=== PATIENT | female | born 1935 | race Hispanic/Latino ===

== ENCOUNTER 2017-12-31 14:44 | Emergency (ER) | payer MEDICARE ==
[~2017-12-31] VITALS: Ht 147.3 cm; Wt 71.7 kg
[~2017-12-31 14:44] MED LIST: AMLODIPINE BESYL5 MG PO; ASA81 MG PO; ASPIRIN325 MG PO; ATORVASTATIN CA20 MG PO; CALCIUM PO; CALCIUM600 MG PO; CARVEDILOL12.5 MG PO; CIPROFLOXACIN500 M1 PO; COLACE100 MG PO; FUROSEMIDE40 MG PO; LANTUS 3ML100 UNITS/ SC; LANTUS100 UNIT/1 SQ; METFORMIN HCL1000 MG PO; NIFEDIPINE10 MG PO; SPIRONOLACTONE25 MG PO; TRAMADOL-ACETAMI1 EA PO; TYLENOL WITH C1 EACH PO; VITAMIN D1000 UNI1 PO; Z.0.AMLODIPINE BESYL PO; Z.0.CARVEDILOL25 MG PO; Z.0.CLONIDINE HCL0.1; Z.0.FUROSEMIDE40 MG; Z.0.LISINOPRIL30 MG PO; Z.0.SPIRONOLACTONE25 PO; Z.1.METFORMIN HCL100 PO; ZESTRIL20 MG PO
[2017-12-31 16:27] LABS: BASOPHILS # (AUTO) 0.1 (0.0-0.1); BASOPHILS % 0.8 % (0.0-1.0); EOSINOPHILS # (AUTO) 0.3 (0.0-0.4); EOSINOPHILS % 5.5 % (0.0-6.0); HEMATOCRIT 35.9 % (34.2-44.1); LYMPHOCYTES # (AUTO) 1.2 (1.0-3.2); LYMPHOCYTES % 20.5 % (18.0-39.1); MEAN CORPUSCULAR HEMOGLOBIN 27.9 pg (28-32); MEAN CORPUSCULAR HGB CONC 33.4 g/dL (31-35); MEAN CORPUSCULAR VOLUME 83.5 fL (81-99); MONOCYTES # (AUTO) 0.4 (0.2-0.8); MONOCYTES % 6.9 % (4.4-11.3); NEUTROPHILS # (AUTO) 3.9 (2.1-6.9); NEUTROPHILS % 66.1 % (38.7-80.0); PLATELET COUNT 247 x10e3/uL (140-360); RED CELL DISTRIBUTION WIDTH 12.8 % (11.7-14.4)
[2017-12-31 16:31] LABS: CLARITY,URINE SL CLOUDY (CLEAR); COLOR,URINE YELLOW (YELLOW); LEUKOCYTE ESTERASE ,URINE NEGATIVE (NEGATIVE); NITRITE,URINE NEGATIVE (NEGATIVE)
[2017-12-31 16:32] LABS: BILIRUBIN,URINE NEGATIVE (NEGATIVE); KETONES,URINE NEGATIVE (NEGATIVE); PROTEIN,URINE DIPSTICK 2+ (NEGATIVE); URINE UROBILINOGEN 0.2 mg/dL (0.2 - 1)
[2017-12-31 16:47] LABS: BACTERIA,URINE FEW /HPF; EPITHELIAL CELLS,URINE FEW /LPF; RBC,URINE 0-5 /HPF (0-5); WBC,URINE (MAN) 0-5 /HPF (0-5)
[2017-12-31 16:48] LABS: YEAST,URINE FEW
[2017-12-31] MEDS ORDERED: SODIUM CHLORIDE 0.9% 1000ML 1,000 ML IV ONE (17:00)
[2017-12-31 17:33] LABS: ALBUMIN 4.1 g/dL (3.5-5.0); ALBUMIN/GLOBULIN RATIO 1.1 (0.8-2.0); ANION GAP 15.6 mmol/L (8-16); CALCIUM 9.7 mg/dL (8.4-10.2); CREATININE, SERUM 2.11 mg/dL (0.57-1.11); POTASSIUM 4.6 mmol/L (3.5-5.1)
[2017-12-31] MEDS ORDERED: INSULIN REGULAR, HUMAN 100 UNIT/1 ML 3ML VIAL IV ONE (17:45)
[2017-12-31 20:24] VITALS: BP 172/87
[2017-12-31] MEDS ORDERED: INSULIN LISPRO 100 UNIT/1 ML 3ML VIAL SQ ONE (21:00)
== END 2017-12-31 20:50 | disposition home or self-care (01) ==
LOC: ER 14:44
DX: E11.65 Type 2 diabetes mellitus with hyperglycemia (principal); I25.10 Atherosclerotic heart disease of native coronary artery without angina pectoris; E78.5 Hyperlipidemia, unspecified; N28.9 Disorder of kidney and ureter, unspecified
CPT/HCPCS: 36415; 80053; 81001; 82948; 85025; 87086; 99283; J7030

== ENCOUNTER 2019-06-16 16:07 | Inpatient (IN) | payer MEDICARE ==
[~2019-06-16] VITALS: Ht 147.3 cm; Wt 78.7 kg
--- OUTSIDE RECORDS SUMMARY | 2019-06-16 16:13 | XMS REPORT ---
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 Allergies, Adverse Reactions, Alerts Allergy Name Allergy Type Status Severity Reaction(s) Onset Date Inactive Date Treating Clinician Comments No Known Allergies DA Active U 2016-04-01 00:00:00 Medications This patient has no known medications. Results Test Description Test Time Test Comments Text Results Atomic Results Result Comments BASIC METABOLIC PANEL 2019-06-14 07:17:00 SODIUM (test code=NA) 129 mEq/L 134-147 POTASSIUM (test code=K) 4.7 mEq/L 3.4-5.0 CHLORIDE (test code=CL) 90 mEq/L 100-108 CARBON DIOXIDE (test code=CO2) 31 mEq/L 21-33 ANION GAP (test code=GAP) 13 0-20 GLUCOSE (test code=GLU) 136 mg/dL 70-110 BLOOD UREA NITROGEN (test code=BUN) 60 mg/dL 7-18 GLOMERULAR FILTRATION RATE (test code=GFR) 10.7 70-80 Units of measure=ml/min/1.73 m2 CREATININE (test code=CREAT) 4.0 mg/dL 0.6-1.3 CALCIUM (test code=CA) 8.3 mg/dL 8.0-10.5 [id number] 07:17:00* Test Item Value Reference Range Comments PHOSPHOROUS (test code=PHOS) 3.7 MG/DL 2.5-4.9 [id number] 07:17:00* Test Item Value Reference Range Comments MAGNESIUM (test code=MAG) 2.10 mg/dL 1.8-2.4 CBC W/AUTO [id number] 07:06:00* Test Item Value Reference Range Comments WHITE BLOOD CELL (test code=WBC) 4.82 x10 3/uL 4.5-11.0 RED BLOOD CELL (test code=RBC) 2.56 x10 6/uL 3.54-5.02 HEMOGLOBIN (test code=HGB) 7.1 g/dL 11.0-15.0 HEMATOCRIT (test code=HCT) 22.5 % 33.0-45.0 MEAN CELL VOLUME (test code=MCV) 87.9 fL 81.0-99.0 MEAN CELL HGB (test code=MCH) 27.7 pg 27.0-33.0 MEAN CELL HGB CONCETRATION (test code=MCHC) 31.6 g/dL 33.0-37.0 RED CELL DISTRIBUTION WIDTH CV (test code=RDW) 13.0 % 11.5-14.5 RED CELL DISTRIBUTION WIDTH SD (test code=RDW-SD) 41.9 fL 37.0-54.0 PLATELET COUNT (test code=PLT) 252 x10 3/uL 150-400 MEAN PLATELET VOLUME (test code=MPV) 9.9 fL 7.0-9.0 NEUTROPHIL % (test code=NT%) 54.0 % 56.0-77.0 IMMATURE GRANULOCYTE % (test code=IG%) 0.2 % 0.0-2.0 LYMPHOCYTE % (test code=LY%) 19.3 % 14.0-32.0 MONOCYTE % (test code=MO%) 13.9 % 4.8-9.0 EOSINOPHIL % (test code=EO%) 11.6 % 0.3-3.7 BASOPHIL % (test code=BA%) 1.0 % 0.0-2.0 NUCLEATED RBC % (test code=NRBC%) 0.0 % 0-0 NEUTROPHIL # (test code=NT#) 2.60 x10 3/uL 2.0-7.6 IMMATURE GRANULOCYTE # (test code=IG#) 0.01 x10 3/uL 0.00-0.03 LYMPHOCYTE # (test code=LY#) 0.93 x10 3/uL 1.0-3.8 MONOCYTE # (test code=MO#) 0.67 x10 3/uL 0.1-0.8 EOSINOPHIL # (test code=EO#) 0.56 x10 3/uL 0.0-0.2 BASOPHIL # (test code=BA#) 0.05 x10 3/uL 0.0-0.2 NUCLEATED RBC # (test code=NRBC#) 0.00 x10 3/uL 0.0-0.1 MANUAL DIFF REQUIRED (test code=MDIFF) NO [id number] 21:07:00* Test Item Value Reference Range Comments GLUBED (test code=GLUBED) 165 MG/DL 70-110 Performed by certified turbogenerator operator at [facility] [id number] 17:11:00* Test Item Value Reference Range Comments GLUBED (test code=GLUBED) 222 MG/DL 70-110 Performed by certified turbogenerator operator at [facility] [id number] 11:31:00* Test Item Value Reference Range Comments GLUBED (test code=GLUBED) 222 MG/DL 70-110 Performed by certified turbogenerator operator at [facility] [id number] 08:06:00* Test Item Value Reference Range Comments GLUBED (test code=GLUBED) 41 MG/DL 70-110 Performed by certified turbogenerator operator at [facility] [id number] 08:03:00* Test Item Value Reference Range Comments GLUBED (test code=GLUBED) 136 MG/DL 70-110 Performed by certified turbogenerator operator at [facility] BASIC METABOLIC [id number] 07:46:00* Test Item Value Reference Range Comments SODIUM (test code=NA) 127 mEq/L 134-147 POTASSIUM (test code=K) 4.9 mEq/L 3.4-5.0 CHLORIDE (test code=CL) 90 mEq/L 100-108 CARBON DIOXIDE (test code=CO2) 29 mEq/L 21-33 ANION GAP (test code=GAP) 13 0-20 GLUCOSE (test code=GLU) 128 mg/dL 70-110 BLOOD UREA NITROGEN (test code=BUN) 59 mg/dL 7-18 GLOMERULAR FILTRATION RATE (test code=GFR) 10.4 70-80 Units of measure=ml/min/1.73 m2 CREATININE (test code=CREAT) 4.1 mg/dL 0.6-1.3 CALCIUM (test code=CA) 7.7 mg/dL 8.0-10.5 [id number] 07:46:00* Test Item Value Reference Range Comments PHOSPHOROUS (test code=PHOS) 4.1 MG/DL 2.5-4.9 [id number] 07:46:00* Test Item Value Reference Range Comments MAGNESIUM (test code=MAG) 1.80 mg/dL 1.8-2.4 CBC W/AUTO [id number] 07:27:00* Test Item Value Reference Range Comments WHITE BLOOD CELL (test code=WBC) 5.05 x10 3/uL 4.5-11.0 RED BLOOD CELL (test code=RBC) 2.65 x10 6/uL 3.54-5.02 HEMOGLOBIN (test code=HGB) 7.4 g/dL 11.0-15.0 HEMATOCRIT (test code=HCT) 23.0 % 33.0-45.0 MEAN CELL VOLUME (test code=MCV) 86.8 fL 81.0-99.0 MEAN CELL HGB (test code=MCH) 27.9 pg 27.0-33.0 MEAN CELL HGB CONCETRATION (test code=MCHC) 32.2 g/dL 33.0-37.0 RED CELL DISTRIBUTION WIDTH CV (test code=RDW) 12.9 % 11.5-14.5 RED CELL DISTRIBUTION WIDTH SD (test code=RDW-SD) 41.1 fL 37.0-54.0 PLATELET COUNT (test code=PLT) 270 x10 3/uL 150-400 MEAN PLATELET VOLUME (test code=MPV) 10.2 fL 7.0-9.0 NEUTROPHIL % (test code=NT%) 65.0 % 56.0-77.0 IMMATURE GRANULOCYTE % (test code=IG%) 0.2 % 0.0-2.0 LYMPHOCYTE % (test code=LY%) 16.2 % 14.0-32.0 MONOCYTE % (test code=MO%) 9.5 % 4.8-9.0 EOSINOPHIL % (test code=EO%) 8.3 % 0.3-3.7 BASOPHIL % (test code=BA%) 0.8 % 0.0-2.0 NUCLEATED RBC % (test code=NRBC%) 0.0 % 0-0 NEUTROPHIL # (test code=NT#) 3.28 x10 3/uL 2.0-7.6 IMMATURE GRANULOCYTE # (test code=IG#) 0.01 x10 3/uL 0.00-0.03 LYMPHOCYTE # (test code=LY#) 0.82 x10 3/uL 1.0-3.8 MONOCYTE # (test code=MO#) 0.48 x10 3/uL 0.1-0.8 EOSINOPHIL # (test code=EO#) 0.42 x10 3/uL 0.0-0.2 BASOPHIL # (test code=BA#) 0.04 x10 3/uL 0.0-0.2 NUCLEATED RBC # (test code=NRBC#) 0.00 x10 3/uL 0.0-0.1 MANUAL DIFF REQUIRED (test code=MDIFF) NO CBC W/AUTO [id number] 08:01:00* Test Item Value Reference Range Comments WHITE BLOOD CELL (test code=WBC) 5.19 x10 3/uL 4.5-11.0 RED BLOOD CELL (test code=RBC) 2.65 x10 6/uL 3.54-5.02 HEMOGLOBIN (test code=HGB) 7.4 g/dL 11.0-15.0 HEMATOCRIT (test code=HCT) 22.9 % 33.0-45.0 MEAN CELL VOLUME (test code=MCV) 86.4 fL 81.0-99.0 MEAN CELL HGB (test code=MCH) 27.9 pg 27.0-33.0 MEAN CELL HGB CONCETRATION (test code=MCHC) 32.3 g/dL 33.0-37.0 RED CELL DISTRIBUTION WIDTH CV (test code=RDW) 13.1 % 11.5-14.5 RED CELL DISTRIBUTION WIDTH SD (test code=RDW-SD) 41.1 fL 37.0-54.0 PLATELET COUNT (test code=PLT) 263 x10 3/uL 150-400 MEAN PLATELET VOLUME (test code=MPV) 10.3 fL 7.0-9.0 NEUTROPHIL % (test code=NT%) 60.0 % 56.0-77.0 IMMATURE GRANULOCYTE % (test code=IG%) 0.6 % 0.0-2.0 LYMPHOCYTE % (test code=LY%) 16.2 % 14.0-32.0 MONOCYTE % (test code=MO%) 10.8 % 4.8-9.0 EOSINOPHIL % (test code=EO%) 11.6 % 0.3-3.7 BASOPHIL % (test code=BA%) 0.8 % 0.0-2.0 NUCLEATED RBC % (test code=NRBC%) 0.0 % 0-0 NEUTROPHIL # (test code=NT#) 3.12 x10 3/uL 2.0-7.6 IMMATURE GRANULOCYTE # (test code=IG#) 0.03 x10 3/uL 0.00-0.03 LYMPHOCYTE # (test code=LY#) 0.84 x10 3/uL 1.0-3.8 MONOCYTE # (test code=MO#) 0.56 x10 3/uL 0.1-0.8 EOSINOPHIL # (test code=EO#) 0.60 x10 3/uL 0.0-0.2 BASOPHIL # (test code=BA#) 0.04 x10 3/uL 0.0-0.2 NUCLEATED RBC # (test code=NRBC#) 0.00 x10 3/uL 0.0-0.1 MANUAL DIFF REQUIRED (test code=MDIFF) NO BASIC METABOLIC [id number] 07:23:00* Test Item Value Reference Range Comments SODIUM (test code=NA) 127 mEq/L 134-147 POTASSIUM (test code=K) 4.7 mEq/L 3.4-5.0 CHLORIDE (test code=CL) 89 mEq/L 100-108 CARBON DIOXIDE (test code=CO2) 30 mEq/L 21-33 ANION GAP (test code=GAP) 13 0-20 GLUCOSE (test code=GLU) 112 mg/dL 70-110 BLOOD UREA NITROGEN (test code=BUN) 52 mg/dL 7-18 GLOMERULAR FILTRATION RATE (test code=GFR) 9.8 70-80 Units of measure=ml/min/1.73 m2 CREATININE (test code=CREAT) 4.3 mg/dL 0.6-1.3 CALCIUM (test code=CA) 7.9 mg/dL 8.0-10.5 [id number] 07:23:00* Test Item Value Reference Range Comments PHOSPHOROUS (test code=PHOS) 4.8 MG/DL 2.5-4.9 [id number] 07:23:00* Test Item Value Reference Range Comments MAGNESIUM (test code=MAG) 1.80 mg/dL 1.8-2.4 [id number] 13:30:00* Test Item Value Reference Range Comments GLUBED (test code=GLUBED) 207 MG/DL 70-110 Performed by certified turbogenerator operator at [facility] [id number] 07:41:00* Test Item Value Reference Range Comments GLUBED (test code=GLUBED) 36 MG/DL 70-110 Performed by certified turbogenerator operator at [facility] BASIC METABOLIC [id number] 05:07:00* Test Item Value Reference Range Comments SODIUM (test code=NA) 125 mEq/L 134-147 POTASSIUM (test code=K) 5.0 mEq/L 3.4-5.0 CHLORIDE (test code=CL) 90 mEq/L 100-108 CARBON DIOXIDE (test code=CO2) 27 mEq/L 21-33 ANION GAP (test code=GAP) 13 0-20 GLUCOSE (test code=GLU) 97 mg/dL 70-110 BLOOD UREA NITROGEN (test code=BUN) 46 mg/dL 7-18 GLOMERULAR FILTRATION RATE (test code=GFR) 9.6 70-80 Units of measure=ml/min/1.73 m2 CREATININE (test code=CREAT) 4.4 mg/dL 0.6-1.3 CALCIUM (test code=CA) 7.9 mg/dL 8.0-10.5 [id number] 05:07:00* Test Item Value Reference Range Comments PHOSPHOROUS (test code=PHOS) 4.5 MG/DL 2.5-4.9 [id number] 05:07:00* Test Item Value Reference Range Comments MAGNESIUM (test code=MAG) 1.90 mg/dL 1.8-2.4 CBC W/AUTO [id number] 04:54:00* Test Item Value Reference Range Comments WHITE BLOOD CELL (test code=WBC) 5.01 x10 3/uL 4.5-11.0 RED BLOOD CELL (test code=RBC) 2.47 x10 6/uL 3.54-5.02 HEMOGLOBIN (test code=HGB) 7.0 g/dL 11.0-15.0 HEMATOCRIT (test code=HCT) 22.1 % 33.0-45.0 MEAN CELL VOLUME (test code=MCV) 89.5 fL 81.0-99.0 MEAN CELL HGB (test code=MCH) 28.3 pg 27.0-33.0 MEAN CELL HGB CONCETRATION (test code=MCHC) 31.7 g/dL 33.0-37.0 RED CELL DISTRIBUTION WIDTH CV (test code=RDW) 12.6 % 11.5-14.5 RED CELL DISTRIBUTION WIDTH SD (test code=RDW-SD) 41.1 fL 37.0-54.0 PLATELET COUNT (test code=PLT) 229 x10 3/uL 150-400 MEAN PLATELET VOLUME (test code=MPV) 9.9 fL 7.0-9.0 NEUTROPHIL % (test code=NT%) 57.2 % 56.0-77.0 IMMATURE GRANULOCYTE % (test code=IG%) 0.4 % 0.0-2.0 LYMPHOCYTE % (test code=LY%) 18.6 % 14.0-32.0 MONOCYTE % (test code=MO%) 11.0 % 4.8-9.0 EOSINOPHIL % (test code=EO%) 12.0 % 0.3-3.7 BASOPHIL % (test code=BA%) 0.8 % 0.0-2.0 NUCLEATED RBC % (test code=NRBC%) 0.0 % 0-0 NEUTROPHIL # (test code=NT#) 2.87 x10 3/uL 2.0-7.6 IMMATURE GRANULOCYTE # (test code=IG#) 0.02 x10 3/uL 0.00-0.03 LYMPHOCYTE # (test code=LY#) 0.93 x10 3/uL 1.0-3.8 MONOCYTE # (test code=MO#) 0.55 x10 3/uL 0.1-0.8 EOSINOPHIL # (test code=EO#) 0.60 x10 3/uL 0.0-0.2 BASOPHIL # (test code=BA#) 0.04 x10 3/uL 0.0-0.2 NUCLEATED RBC # (test code=NRBC#) 0.00 x10 3/uL 0.0-0.1 MANUAL DIFF REQUIRED (test code=MDIFF) NO [id number] 17:59:00* Test Item Value Reference Range Comments GLUBED (test code=GLUBED) 151 MG/DL 70-110 Performed by certified turbogenerator operator at [facility] [id number] 17:59:00* Test Item Value Reference Range Comments GLUBED (test code=GLUBED) 133 MG/DL 70-110 Performed by certified turbogenerator operator at [facility] BASIC METABOLIC [id number] 14:31:00* Test Item Value Reference Range Comments SODIUM (test code=NA) 125 mEq/L 134-147 POTASSIUM (test code=K) 4.8 mEq/L 3.4-5.0 CHLORIDE (test code=CL) 89 mEq/L 100-108 CARBON DIOXIDE (test code=CO2) 29 mEq/L 21-33 ANION GAP (test code=GAP) 12 0-20 GLUCOSE (test code=GLU) 46 mg/dL 70-110 BLOOD UREA NITROGEN (test code=BUN) 43 mg/dL 7-18 GLOMERULAR FILTRATION RATE (test code=GFR) 9.1 70-80 Units of measure=ml/min/1.73 m2 CREATININE (test code=CREAT) 4.6 mg/dL 0.6-1.3 CALCIUM (test code=CA) 7.7 mg/dL 8.0-10.5 [id number] 09:26:00* Test Item Value Reference Range Comments GLUBED (test code=GLUBED) 209 MG/DL 70-110 Performed by certified turbogenerator operator at [facility] BASIC METABOLIC [id number] 05:59:00* Test Item Value Reference Range Comments SODIUM (test code=NA) 124 mEq/L 134-147 POTASSIUM (test code=K) 5.0 mEq/L 3.4-5.0 CHLORIDE (test code=CL) 90 mEq/L 100-108 CARBON DIOXIDE (test code=CO2) 25 mEq/L 21-33 ANION GAP (test code=GAP) 14 0-20 GLUCOSE (test code=GLU) 173 mg/dL 70-110 BLOOD UREA NITROGEN (test code=BUN) 43 mg/dL 7-18 GLOMERULAR FILTRATION RATE (test code=GFR) 8.9 70-80 Units of measure=ml/min/1.73 m2 CREATININE (test code=CREAT) 4.7 mg/dL 0.6-1.3 CALCIUM (test code=CA) 7.7 mg/dL 8.0-10.5 [id number] 05:59:00* Test Item Value Reference Range Comments PHOSPHOROUS (test code=PHOS) 4.8 MG/DL 2.5-4.9 [id number] 05:59:00* Test Item Value Reference Range Comments MAGNESIUM (test code=MAG) 1.90 mg/dL 1.8-2.4 CBC W/AUTO [id number] 05:04:00* Test Item Value Reference Range Comments WHITE BLOOD CELL (test code=WBC) 5.62 x10 3/uL 4.5-11.0 RED BLOOD CELL (test code=RBC) 2.55 x10 6/uL 3.54-5.02 HEMOGLOBIN (test code=HGB) 7.1 g/dL 11.0-15.0 HEMATOCRIT (test code=HCT) 22.4 % 33.0-45.0 MEAN CELL VOLUME (test code=MCV) 87.8 fL 81.0-99.0 MEAN CELL HGB (test code=MCH) 27.8 pg 27.0-33.0 MEAN CELL HGB CONCETRATION (test code=MCHC) 31.7 g/dL 33.0-37.0 RED CELL DISTRIBUTION WIDTH CV (test code=RDW) 13.0 % 11.5-14.5 RED CELL DISTRIBUTION WIDTH SD (test code=RDW-SD) 41.3 fL 37.0-54.0 PLATELET COUNT (test code=PLT) 225 x10 3/uL 150-400 MEAN PLATELET VOLUME (test code=MPV) 10.2 fL 7.0-9.0 NEUTROPHIL % (test code=NT%) 75.2 % 56.0-77.0 IMMATURE GRANULOCYTE % (test code=IG%) 0.4 % 0.0-2.0 LYMPHOCYTE % (test code=LY%) 10.1 % 14.0-32.0 MONOCYTE % (test code=MO%) 7.8 % 4.8-9.0 EOSINOPHIL % (test code=EO%) 6.0 % 0.3-3.7 BASOPHIL % (test code=BA%) 0.5 % 0.0-2.0 NUCLEATED RBC % (test code=NRBC%) 0.0 % 0-0 NEUTROPHIL # (test code=NT#) 4.22 x10 3/uL 2.0-7.6 IMMATURE GRANULOCYTE # (test code=IG#) 0.02 x10 3/uL 0.00-0.03 LYMPHOCYTE # (test code=LY#) 0.57 x10 3/uL 1.0-3.8 MONOCYTE # (test code=MO#) 0.44 x10 3/uL 0.1-0.8 EOSINOPHIL # (test code=EO#) 0.34 x10 3/uL 0.0-0.2 BASOPHIL # (test code=BA#) 0.03 x10 3/uL 0.0-0.2 NUCLEATED RBC # (test code=NRBC#) 0.00 x10 3/uL 0.0-0.1 MANUAL DIFF REQUIRED (test code=MDIFF) NO [id number] 01:29:00* Test Item Value Reference Range Comments GLUBED (test code=GLUBED) 173 MG/DL 70-110 Performed by certified turbogenerator operator at [facility] [id number] 23:57:00* Test Item Value Reference Range Comments GLUBED (test code=GLUBED) 104 MG/DL 70-110 Performed by certified turbogenerator operator at [facility] [id number] 23:57:00* Test Item Value Reference Range Comments GLUBED (test code=GLUBED) 120 MG/DL 70-110 Performed by certified turbogenerator operator at [facility] [id number] 22:17:00* Test Item Value Reference Range Comments GLUBED (test code=GLUBED) 137 MG/DL 70-110 Performed by certified turbogenerator operator at [facility] [id number] 21:06:00* Test Item Value Reference Range Comments GLUBED (test code=GLUBED) 158 MG/DL 70-110 Performed by certified turbogenerator operator at [facility] [id number] 17:03:00* Test Item Value Reference Range Comments GLUBED (test code=GLUBED) 198 MG/DL 70-110 Performed by certified turbogenerator operator at [facility] [id number] 13:19:00* Test Item Value Reference Range Comments GLUBED (test code=GLUBED) 79 MG/DL 70-110 Performed by certified turbogenerator operator at [facility] [id number] 08:25:00* Test Item Value Reference Range Comments GLUBED (test code=GLUBED) 117 MG/DL 70-110 Performed by certified turbogenerator operator at [facility] BASIC METABOLIC [id number] 04:54:00* Test Item Value Reference Range Comments SODIUM (test code=NA) 131 mEq/L 134-147 POTASSIUM (test code=K) 4.9 mEq/L 3.4-5.0 CHLORIDE (test code=CL) 95 mEq/L 100-108 CARBON DIOXIDE (test code=CO2) 27 mEq/L 21-33 ANION GAP (test code=GAP) 14 0-20 GLUCOSE (test code=GLU) 99 mg/dL 70-110 BLOOD UREA NITROGEN (test code=BUN) 41 mg/dL 7-18 GLOMERULAR FILTRATION RATE (test code=GFR) 8.2 70-80 Units of measure=ml/min/1.73 m2 CREATININE (test code=CREAT) 5.0 mg/dL 0.6-1.3 CALCIUM (test code=CA) 8.3 mg/dL 8.0-10.5 [id number] 04:54:00* Test Item Value Reference Range Comments PHOSPHOROUS (test code=PHOS) 5.3 MG/DL 2.5-4.9 [id number] 04:54:00* Test Item Value Reference Range Comments MAGNESIUM (test code=MAG) 1.90 mg/dL 1.8-2.4 CBC W/AUTO [id number] 04:44:00* Test Item Value Reference Range Comments WHITE BLOOD CELL (test code=WBC) 7.99 x10 3/uL 4.5-11.0 RED BLOOD CELL (test code=RBC) 2.68 x10 6/uL 3.54-5.02 HEMOGLOBIN (test code=HGB) 7.7 g/dL 11.0-15.0 HEMATOCRIT (test code=HCT) 23.8 % 33.0-45.0 MEAN CELL VOLUME (test code=MCV) 88.8 fL 81.0-99.0 MEAN CELL HGB (test code=MCH) 28.7 pg 27.0-33.0 MEAN CELL HGB CONCETRATION (test code=MCHC) 32.4 g/dL 33.0-37.0 RED CELL DISTRIBUTION WIDTH CV (test code=RDW) 13.1 % 11.5-14.5 RED CELL DISTRIBUTION WIDTH SD (test code=RDW-SD) 42.4 fL 37.0-54.0 PLATELET COUNT (test code=PLT) 235 x10 3/uL 150-400 MEAN PLATELET VOLUME (test code=MPV) 10.2 fL 7.0-9.0 NEUTROPHIL % (test code=NT%) 76.9 % 56.0-77.0 IMMATURE GRANULOCYTE % (test code=IG%) 0.3 % 0.0-2.0 LYMPHOCYTE % (test code=LY%) 9.4 % 14.0-32.0 MONOCYTE % (test code=MO%) 8.4 % 4.8-9.0 EOSINOPHIL % (test code=EO%) 4.5 % 0.3-3.7 BASOPHIL % (test code=BA%) 0.5 % 0.0-2.0 NUCLEATED RBC % (test code=NRBC%) 0.0 % 0-0 NEUTROPHIL # (test code=NT#) 6.15 x10 3/uL 2.0-7.6 IMMATURE GRANULOCYTE # (test code=IG#) 0.02 x10 3/uL 0.00-0.03 LYMPHOCYTE # (test code=LY#) 0.75 x10 3/uL 1.0-3.8 MONOCYTE # (test code=MO#) 0.67 x10 3/uL 0.1-0.8 EOSINOPHIL # (test code=EO#) 0.36 x10 3/uL 0.0-0.2 BASOPHIL # (test code=BA#) 0.04 x10 3/uL 0.0-0.2 NUCLEATED RBC # (test code=NRBC#) 0.00 x10 3/uL 0.0-0.1 MANUAL DIFF REQUIRED (test code=MDIFF) NO [id number] 20:38:00* Test Item Value Reference Range Comments GLUBED (test code=GLUBED) 120 MG/DL 70-110 Performed by certified turbogenerator operator at [facility] [id number] 16:42:00* Test Item Value Reference Range Comments GLUBED (test code=GLUBED) 111 MG/DL 70-110 Performed by certified turbogenerator operator at [facility] [id number] 11:51:00* Test Item Value Reference Range Comments GLUBED (test code=GLUBED) 174 MG/DL 70-110 Performed by certified turbogenerator operator at [facility] [id number] 08:53:00* Test Item Value Reference Range Comments GLUBED (test code=GLUBED) 136 MG/DL 70-110 Performed by certified turbogenerator operator at [facility] BASIC METABOLIC [id number] 05:29:00* Test Item Value Reference Range Comments SODIUM (test code=NA) 130 mEq/L 134-147 POTASSIUM (test code=K) 4.9 mEq/L 3.4-5.0 CHLORIDE (test code=CL) 95 mEq/L 100-108 CARBON DIOXIDE (test code=CO2) 26 mEq/L 21-33 ANION GAP (test code=GAP) 14 0-20 GLUCOSE (test code=GLU) 130 mg/dL 70-110 BLOOD UREA NITROGEN (test code=BUN) 39 mg/dL 7-18 GLOMERULAR FILTRATION RATE (test code=GFR) 8.1 70-80 Units of measure=ml/min/1.73 m2 CREATININE (test code=CREAT) 5.1 mg/dL 0.6-1.3 CALCIUM (test code=CA) 8.3 mg/dL 8.0-10.5 [id number] 05:29:00* Test Item Value Reference Range Comments PHOSPHOROUS (test code=PHOS) 5.9 MG/DL 2.5-4.9 [id number] 05:29:00* Test Item Value Reference Range Comments MAGNESIUM (test code=MAG) 2.00 mg/dL 1.8-2.4 CBC W/AUTO [id number] 05:28:00* Test Item Value Reference Range Comments WHITE BLOOD CELL (test code=WBC) 6.66 x10 3/uL 4.5-11.0 RED BLOOD CELL (test code=RBC) 2.89 x10 6/uL 3.54-5.02 HEMOGLOBIN (test code=HGB) 8.1 g/dL 11.0-15.0 HEMATOCRIT (test code=HCT) 25.5 % 33.0-45.0 MEAN CELL VOLUME (test code=MCV) 88.2 fL 81.0-99.0 MEAN CELL HGB (test code=MCH) 28.0 pg 27.0-33.0 MEAN CELL HGB CONCETRATION (test code=MCHC) 31.8 g/dL 33.0-37.0 RED CELL DISTRIBUTION WIDTH CV (test code=RDW) 13.2 % 11.5-14.5 RED CELL DISTRIBUTION WIDTH SD (test code=RDW-SD) 42.3 fL 37.0-54.0 PLATELET COUNT (test code=PLT) 249 x10 3/uL 150-400 MEAN PLATELET VOLUME (test code=MPV) 10.3 fL 7.0-9.0 NEUTROPHIL % (test code=NT%) 71.1 % 56.0-77.0 IMMATURE GRANULOCYTE % (test code=IG%) 0.3 % 0.0-2.0 LYMPHOCYTE % (test code=LY%) 10.4 % 14.0-32.0 MONOCYTE % (test code=MO%) 8.7 % 4.8-9.0 EOSINOPHIL % (test code=EO%) 8.9 % 0.3-3.7 BASOPHIL % (test code=BA%) 0.6 % 0.0-2.0 NUCLEATED RBC % (test code=NRBC%) 0.0 % 0-0 NEUTROPHIL # (test code=NT#) 4.74 x10 3/uL 2.0-7.6 IMMATURE GRANULOCYTE # (test code=IG#) 0.02 x10 3/uL 0.00-0.03 LYMPHOCYTE # (test code=LY#) 0.69 x10 3/uL 1.0-3.8 MONOCYTE # (test code=MO#) 0.58 x10 3/uL 0.1-0.8 EOSINOPHIL # (test code=EO#) 0.59 x10 3/uL 0.0-0.2 BASOPHIL # (test code=BA#) 0.04 x10 3/uL 0.0-0.2 NUCLEATED RBC # (test code=NRBC#) 0.00 x10 3/uL 0.0-0.1 MANUAL DIFF REQUIRED (test code=MDIFF) NO BASIC METABOLIC [id number] 08:11:00* Test Item Value Reference Range Comments SODIUM (test code=NA) 132 mEq/L 134-147 POTASSIUM (test code=K) 4.8 mEq/L 3.4-5.0 CHLORIDE (test code=CL) 98 mEq/L 100-108 CARBON DIOXIDE (test code=CO2) 23 mEq/L 21-33 ANION GAP (test code=GAP) 16 0-20 GLUCOSE (test code=GLU) 156 mg/dL 70-110 BLOOD UREA NITROGEN (test code=BUN) 34 mg/dL 7-18 GLOMERULAR FILTRATION RATE (test code=GFR) 8.9 70-80 Units of measure=ml/min/1.73 m2 CREATININE (test code=CREAT) 4.7 mg/dL 0.6-1.3 CALCIUM (test code=CA) 8.5 mg/dL 8.0-10.5 [id number] 08:11:00* Test Item Value Reference Range Comments PHOSPHOROUS (test code=PHOS) 4.9 MG/DL 2.5-4.9 [id number] 08:11:00* Test Item Value Reference Range Comments MAGNESIUM (test code=MAG) 2.00 mg/dL 1.8-2.4 CBC W/AUTO [id number] 07:06:00* Test Item Value Reference Range Comments WHITE BLOOD CELL (test code=WBC) 5.94 x10 3/uL 4.5-11.0 RED BLOOD CELL (test code=RBC) 2.94 x10 6/uL 3.54-5.02 HEMOGLOBIN (test code=HGB) 8.2 g/dL 11.0-15.0 HEMATOCRIT (test code=HCT) 26.1 % 33.0-45.0 MEAN CELL VOLUME (test code=MCV) 88.8 fL 81.0-99.0 MEAN CELL HGB (test code=MCH) 27.9 pg 27.0-33.0 MEAN CELL HGB CONCETRATION (test code=MCHC) 31.4 g/dL 33.0-37.0 RED CELL DISTRIBUTION WIDTH CV (test code=RDW) 13.4 % 11.5-14.5 RED CELL DISTRIBUTION WIDTH SD (test code=RDW-SD) 44.4 fL 37.0-54.0 PLATELET COUNT (test code=PLT) 235 x10 3/uL 150-400 MEAN PLATELET VOLUME (test code=MPV) 10.5 fL 7.0-9.0 NEUTROPHIL % (test code=NT%) 67.4 % 56.0-77.0 IMMATURE GRANULOCYTE % (test code=IG%) 0.3 % 0.0-2.0 LYMPHOCYTE % (test code=LY%) 11.8 % 14.0-32.0 MONOCYTE % (test code=MO%) 7.9 % 4.8-9.0 EOSINOPHIL % (test code=EO%) 11.4 % 0.3-3.7 BASOPHIL % (test code=BA%) 1.2 % 0.0-2.0 NUCLEATED RBC % (test code=NRBC%) 0.0 % 0-0 NEUTROPHIL # (test code=NT#) 4.00 x10 3/uL 2.0-7.6 IMMATURE GRANULOCYTE # (test code=IG#) 0.02 x10 3/uL 0.00-0.03 LYMPHOCYTE # (test code=LY#) 0.70 x10 3/uL 1.0-3.8 MONOCYTE # (test code=MO#) 0.47 x10 3/uL 0.1-0.8 EOSINOPHIL # (test code=EO#) 0.68 x10 3/uL 0.0-0.2 BASOPHIL # (test code=BA#) 0.07 x10 3/uL 0.0-0.2 NUCLEATED RBC # (test code=NRBC#) 0.00 x10 3/uL 0.0-0.1 MANUAL DIFF REQUIRED (test code=MDIFF) NO HGB [id number] 18:43:00* Test Item Value Reference Range Comments HEMOGLOBIN (test code=HGB) 8.3 g/dL 11.0-15.0 HEMATOCRIT (test code=HCT) 26.2 % 33.0-45.0 COMMENTS: One hour post transfusion completionBASIC METABOLIC [id number] 07:46:00* Test Item Value Reference Range Comments SODIUM (test code=NA) 133 mEq/L 134-147 POTASSIUM (test code=K) 5.0 mEq/L 3.4-5.0 CHLORIDE (test code=CL) 100 mEq/L 100-108 CARBON DIOXIDE (test code=CO2) 25 mEq/L 21-33 ANION GAP (test code=GAP) 13 0-20 GLUCOSE (test code=GLU) 191 mg/dL 70-110 BLOOD UREA NITROGEN (test code=BUN) 35 mg/dL 7-18 GLOMERULAR FILTRATION RATE (test code=GFR) 10.4 70-80 Units of measure=ml/min/1.73 m2 CREATININE (test code=CREAT) 4.1 mg/dL 0.6-1.3 CALCIUM (test code=CA) 8.3 mg/dL 8.0-10.5 [id number] 07:46:00* Test Item Value Reference Range Comments PHOSPHOROUS (test code=PHOS) 4.0 MG/DL 2.5-4.9 [id number] 07:46:00* Test Item Value Reference Range Comments MAGNESIUM (test code=MAG) 1.90 mg/dL 1.8-2.4 CBC W/AUTO [id number] 07:11:00* Test Item Value Reference Range Comments WHITE BLOOD CELL (test code=WBC) 5.13 x10 3/uL 4.5-11.0 RED BLOOD CELL (test code=RBC) 2.35 x10 6/uL 3.54-5.02 HEMOGLOBIN (test code=HGB) 6.7 g/dL 11.0-15.0 HEMATOCRIT (test code=HCT) 21.5 % 33.0-45.0 MEAN CELL VOLUME (test code=MCV) 91.5 fL 81.0-99.0 MEAN CELL HGB (test code=MCH) 28.5 pg 27.0-33.0 MEAN CELL HGB CONCETRATION (test code=MCHC) 31.2 g/dL 33.0-37.0 RED CELL DISTRIBUTION WIDTH CV (test code=RDW) 13.1 % 11.5-14.5 RED CELL DISTRIBUTION WIDTH SD (test code=RDW-SD) 43.4 fL 37.0-54.0 PLATELET COUNT (test code=PLT) 183 x10 3/uL 150-400 MEAN PLATELET VOLUME (test code=MPV) 10.7 fL 7.0-9.0 NEUTROPHIL % (test code=NT%) 59.5 % 56.0-77.0 IMMATURE GRANULOCYTE % (test code=IG%) 0.2 % 0.0-2.0 LYMPHOCYTE % (test code=LY%) 21.1 % 14.0-32.0 MONOCYTE % (test code=MO%) 9.2 % 4.8-9.0 EOSINOPHIL % (test code=EO%) 9.2 % 0.3-3.7 BASOPHIL % (test code=BA%) 0.8 % 0.0-2.0 NUCLEATED RBC % (test code=NRBC%) 0.0 % 0-0 NEUTROPHIL # (test code=NT#) 3.06 x10 3/uL 2.0-7.6 IMMATURE GRANULOCYTE # (test code=IG#) 0.01 x10 3/uL 0.00-0.03 LYMPHOCYTE # (test code=LY#) 1.08 x10 3/uL 1.0-3.8 MONOCYTE # (test code=MO#) 0.47 x10 3/uL 0.1-0.8 EOSINOPHIL # (test code=EO#) 0.47 x10 3/uL 0.0-0.2 BASOPHIL # (test code=BA#) 0.04 x10 3/uL 0.0-0.2 NUCLEATED RBC # (test code=NRBC#) 0.00 x10 3/uL 0.0-0.1 MANUAL DIFF REQUIRED (test code=MDIFF) NO [id number] 06:12:00* Test Item Value Reference Range Comments GLUBED (test code=GLUBED) 88 MG/DL 70-110 Performed by certified turbogenerator operator at [facility] BASIC METABOLIC [id number] 15:20:00* Test Item Value Reference Range Comments SODIUM (test code=NA) 135 mEq/L 134-147 POTASSIUM (test code=K) 4.7 mEq/L 3.4-5.0 CHLORIDE (test code=CL) 102 mEq/L 100-108 CARBON DIOXIDE (test code=CO2) 24 mEq/L 21-33 ANION GAP (test code=GAP) 14 0-20 GLUCOSE (test code=GLU) 265 mg/dL 70-110 BLOOD UREA NITROGEN (test code=BUN) 34 mg/dL 7-18 GLOMERULAR FILTRATION RATE (test code=GFR) 12.9 70-80 Units of measure=ml/min/1.73 m2 CREATININE (test code=CREAT) 3.4 mg/dL 0.6-1.3 CALCIUM (test code=CA) 8.3 mg/dL 8.0-10.5 CBC W/AUTO [id number] 15:06:00* Test Item Value Reference Range Comments WHITE BLOOD CELL (test code=WBC) 6.47 x10 3/uL 4.5-11.0 RED BLOOD CELL (test code=RBC) 2.56 x10 6/uL 3.54-5.02 HEMOGLOBIN (test code=HGB) 7.3 g/dL 11.0-15.0 HEMATOCRIT (test code=HCT) 23.1 % 33.0-45.0 MEAN CELL VOLUME (test code=MCV) 90.2 fL 81.0-99.0 MEAN CELL HGB (test code=MCH) 28.5 pg 27.0-33.0 MEAN CELL HGB CONCETRATION (test code=MCHC) 31.6 g/dL 33.0-37.0 RED CELL DISTRIBUTION WIDTH CV (test code=RDW) 13.1 % 11.5-14.5 RED CELL DISTRIBUTION WIDTH SD (test code=RDW-SD) 43.2 fL 37.0-54.0 PLATELET COUNT (test code=PLT) 217 x10 3/uL 150-400 MEAN PLATELET VOLUME (test code=MPV) 10.4 fL 7.0-9.0 NEUTROPHIL % (test code=NT%) 73.0 % 56.0-77.0 IMMATURE GRANULOCYTE % (test code=IG%) 0.3 % 0.0-2.0 LYMPHOCYTE % (test code=LY%) 13.4 % 14.0-32.0 MONOCYTE % (test code=MO%) 7.1 % 4.8-9.0 EOSINOPHIL % (test code=EO%) 5.6 % 0.3-3.7 BASOPHIL % (test code=BA%) 0.6 % 0.0-2.0 NUCLEATED RBC % (test code=NRBC%) 0.0 % 0-0 NEUTROPHIL # (test code=NT#) 4.72 x10 3/uL 2.0-7.6 IMMATURE GRANULOCYTE # (test code=IG#) 0.02 x10 3/uL 0.00-0.03 LYMPHOCYTE # (test code=LY#) 0.87 x10 3/uL 1.0-3.8 MONOCYTE # (test code=MO#) 0.46 x10 3/uL 0.1-0.8 EOSINOPHIL # (test code=EO#) 0.36 x10 3/uL 0.0-0.2 BASOPHIL # (test code=BA#) 0.04 x10 3/uL 0.0-0.2 NUCLEATED RBC # (test code=NRBC#) 0.00 x10 3/uL 0.0-0.1 MANUAL DIFF REQUIRED (test code=MDIFF) NO CBC W/AUTO [id number] 09:34:00* Test Item Value Reference Range Comments WHITE BLOOD CELL (test code=WBC) 4.73 x10 3/uL 4.5-11.0 RED BLOOD CELL (test code=RBC) 2.51 x10 6/uL 3.54-5.02 HEMOGLOBIN (test code=HGB) 7.0 g/dL 11.0-15.0 HEMATOCRIT (test code=HCT) 22.6 % 33.0-45.0 MEAN CELL VOLUME (test code=MCV) 90.0 fL 81.0-99.0 MEAN CELL HGB (test code=MCH) 27.9 pg 27.0-33.0 MEAN CELL HGB CONCETRATION (test code=MCHC) 31.0 g/dL 33.0-37.0 RED CELL DISTRIBUTION WIDTH CV (test code=RDW) 13.2 % 11.5-14.5 RED CELL DISTRIBUTION WIDTH SD (test code=RDW-SD) 43.4 fL 37.0-54.0 PLATELET COUNT (test code=PLT) 184 x10 3/uL 150-400 MEAN PLATELET VOLUME (test code=MPV) 10.1 fL 7.0-9.0 NEUTROPHIL % (test code=NT%) 73.8 % 56.0-77.0 IMMATURE GRANULOCYTE % (test code=IG%) 0.2 % 0.0-2.0 LYMPHOCYTE % (test code=LY%) 12.9 % 14.0-32.0 MONOCYTE % (test code=MO%) 9.7 % 4.8-9.0 EOSINOPHIL % (test code=EO%) 2.3 % 0.3-3.7 BASOPHIL % (test code=BA%) 1.1 % 0.0-2.0 NUCLEATED RBC % (test code=NRBC%) 0.0 % 0-0 NEUTROPHIL # (test code=NT#) 3.49 x10 3/uL 2.0-7.6 IMMATURE GRANULOCYTE # (test code=IG#) 0.01 x10 3/uL 0.00-0.03 LYMPHOCYTE # (test code=LY#) 0.61 x10 3/uL 1.0-3.8 MONOCYTE # (test code=MO#) 0.46 x10 3/uL 0.1-0.8 EOSINOPHIL # (test code=EO#) 0.11 x10 3/uL 0.0-0.2 BASOPHIL # (test code=BA#) 0.05 x10 3/uL 0.0-0.2 NUCLEATED RBC # (test code=NRBC#) 0.00 x10 3/uL 0.0-0.1 MANUAL DIFF REQUIRED (test code=MDIFF) NO BASIC METABOLIC [id number] 06:07:00* Test Item Value Reference Range Comments SODIUM (test code=NA) 134 mEq/L 134-147 POTASSIUM (test code=K) 5.0 mEq/L 3.4-5.0 CHLORIDE (test code=CL) 104 mEq/L 100-108 CARBON DIOXIDE (test code=CO2) 25 mEq/L 21-33 ANION GAP (test code=GAP) 10 0-20 GLUCOSE (test code=GLU) 301 mg/dL 70-110 BLOOD UREA NITROGEN (test code=BUN) 32 mg/dL 7-18 GLOMERULAR FILTRATION RATE (test code=GFR) 16.8 70-80 Units of measure=ml/min/1.73 m2 CREATININE (test code=CREAT) 2.7 mg/dL 0.6-1.3 CALCIUM (test code=CA) 8.3 mg/dL 8.0-10.5 COMMENTS: To be done morning of Heart [id number] 06:07:00* Test Item Value Reference Range Comments PHOSPHOROUS (test code=PHOS) 4.2 MG/DL 2.5-4.9 COMMENTS: To be done morning of Heart [id number] 06:07:00* Test Item Value Reference Range Comments MAGNESIUM (test code=MAG) 1.90 mg/dL 1.8-2.4 COMMENTS: To be done morning of Heart CathBASIC METABOLIC [id number] 05:59:00* Test Item Value Reference Range Comments SODIUM (test code=NA) 134 mEq/L 134-147 POTASSIUM (test code=K) 5.0 mEq/L 3.4-5.0 CHLORIDE (test code=CL) 104 mEq/L 100-108 CARBON DIOXIDE (test code=CO2) 25 mEq/L 21-33 ANION GAP (test code=GAP) 10 0-20 GLUCOSE (test code=GLU) 301 mg/dL 70-110 BLOOD UREA NITROGEN (test code=BUN) 32 mg/dL 7-18 GLOMERULAR FILTRATION RATE (test code=GFR) 70-80 CREATININE (test code=CREAT) mg/dL 0.6-1.3 CALCIUM (test code=CA) 8.3 mg/dL 8.0-10.5 COMMENTS: To be done morning of Heart [id number] 05:59:00* Test Item Value Reference Range Comments PHOSPHOROUS (test code=PHOS) MG/DL 2.5-4.9 COMMENTS: To be done morning of Heart [id number] 05:59:00* Test Item Value Reference Range Comments MAGNESIUM (test code=MAG) 1.90 mg/dL 1.8-2.4 COMMENTS: To be done morning of Heart CathBASIC METABOLIC [id number] 05:59:00* Test Item Value Reference Range Comments SODIUM (test code=NA) 134 mEq/L 134-147 POTASSIUM (test code=K) 5.0 mEq/L 3.4-5.0 CHLORIDE (test code=CL) 104 mEq/L 100-108 CARBON DIOXIDE (test code=CO2) 25 mEq/L 21-33 ANION GAP (test code=GAP) 10 0-20 GLUCOSE (test code=GLU) 301 mg/dL 70-110 BLOOD UREA NITROGEN (test code=BUN) 32 mg/dL 7-18 GLOMERULAR FILTRATION RATE (test code=GFR) 70-80 CREATININE (test code=CREAT) mg/dL 0.6-1.3 CALCIUM (test code=CA) 8.3 mg/dL 8.0-10.5 COMMENTS: To be done morning of Heart [id number] 05:59:00* Test Item Value Reference Range Comments PHOSPHOROUS (test code=PHOS) MG/DL 2.5-4.9 COMMENTS: To be done morning of Heart [id number] 05:59:00* Test Item Value Reference Range Comments MAGNESIUM (test code=MAG) 1.90 mg/dL 1.8-2.4 COMMENTS: To be done morning of Heart CathCBC W/AUTO [id number] 05:57:00* Test Item Value Reference Range Comments WHITE BLOOD CELL (test code=WBC) 4.59 x10 3/uL 4.5-11.0 RED BLOOD CELL (test code=RBC) 2.41 x10 6/uL 3.54-5.02 HEMOGLOBIN (test code=HGB) 6.8 g/dL 11.0-15.0 HEMATOCRIT (test code=HCT) 21.8 % 33.0-45.0 MEAN CELL VOLUME (test code=MCV) 90.5 fL 81.0-99.0 MEAN CELL HGB (test code=MCH) 28.2 pg 27.0-33.0 MEAN CELL HGB CONCETRATION (test code=MCHC) 31.2 g/dL 33.0-37.0 RED CELL DISTRIBUTION WIDTH CV (test code=RDW) 13.0 % 11.5-14.5 RED CELL DISTRIBUTION WIDTH SD (test code=RDW-SD) 43.5 fL 37.0-54.0 PLATELET COUNT (test code=PLT) 191 x10 3/uL 150-400 MEAN PLATELET VOLUME (test code=MPV) 10.5 fL 7.0-9.0 NEUTROPHIL % (test code=NT%) 77.2 % 56.0-77.0 IMMATURE GRANULOCYTE % (test code=IG%) 0.4 % 0.0-2.0 LYMPHOCYTE % (test code=LY%) 11.5 % 14.0-32.0 MONOCYTE % (test code=MO%) 8.3 % 4.8-9.0 EOSINOPHIL % (test code=EO%) 1.3 % 0.3-3.7 BASOPHIL % (test code=BA%) 1.3 % 0.0-2.0 NUCLEATED RBC % (test code=NRBC%) 0.0 % 0-0 NEUTROPHIL # (test code=NT#) 3.54 x10 3/uL 2.0-7.6 IMMATURE GRANULOCYTE # (test code=IG#) 0.02 x10 3/uL 0.00-0.03 LYMPHOCYTE # (test code=LY#) 0.53 x10 3/uL 1.0-3.8 MONOCYTE # (test code=MO#) 0.38 x10 3/uL 0.1-0.8 EOSINOPHIL # (test code=EO#) 0.06 x10 3/uL 0.0-0.2 BASOPHIL # (test code=BA#) 0.06 x10 3/uL 0.0-0.2 NUCLEATED RBC # (test code=NRBC#) 0.00 x10 3/uL 0.0-0.1 MANUAL DIFF REQUIRED (test code=MDIFF) NO COMMENTS: To be done morning of Heart CathCBC W/AUTO [id number] 05:57:00* Test Item Value Reference Range Comments WHITE BLOOD CELL (test code=WBC) 4.59 x10 3/uL 4.5-11.0 RED BLOOD CELL (test code=RBC) 2.41 x10 6/uL 3.54-5.02 HEMOGLOBIN (test code=HGB) 6.8 g/dL 11.0-15.0 HEMATOCRIT (test code=HCT) 21.8 % 33.0-45.0 MEAN CELL VOLUME (test code=MCV) 90.5 fL 81.0-99.0 MEAN CELL HGB (test code=MCH) 28.2 pg 27.0-33.0 MEAN CELL HGB CONCETRATION (test code=MCHC) 31.2 g/dL 33.0-37.0 RED CELL DISTRIBUTION WIDTH CV (test code=RDW) 13.0 % 11.5-14.5 RED CELL DISTRIBUTION WIDTH SD (test code=RDW-SD) 43.5 fL 37.0-54.0 PLATELET COUNT (test code=PLT) 191 x10 3/uL 150-400 MEAN PLATELET VOLUME (test code=MPV) 10.5 fL 7.0-9.0 NEUTROPHIL % (test code=NT%) 77.2 % 56.0-77.0 IMMATURE GRANULOCYTE % (test code=IG%) 0.4 % 0.0-2.0 LYMPHOCYTE % (test code=LY%) 11.5 % 14.0-32.0 MONOCYTE % (test code=MO%) 8.3 % 4.8-9.0 EOSINOPHIL % (test code=EO%) 1.3 % 0.3-3.7 BASOPHIL % (test code=BA%) 1.3 % 0.0-2.0 NUCLEATED RBC % (test code=NRBC%) 0.0 % 0-0 NEUTROPHIL # (test code=NT#) 3.54 x10 3/uL 2.0-7.6 IMMATURE GRANULOCYTE # (test code=IG#) 0.02 x10 3/uL 0.00-0.03 LYMPHOCYTE # (test code=LY#) 0.53 x10 3/uL 1.0-3.8 MONOCYTE # (test code=MO#) 0.38 x10 3/uL 0.1-0.8 EOSINOPHIL # (test code=EO#) 0.06 x10 3/uL 0.0-0.2 BASOPHIL # (test code=BA#) 0.06 x10 3/uL 0.0-0.2 NUCLEATED RBC # (test code=NRBC#) 0.00 x10 3/uL 0.0-0.1 MANUAL DIFF REQUIRED (test code=MDIFF) NO COMMENTS: To be done morning of Heart ZlerJIA-[id number] 16:50:00* Test Item Value Reference Range Comments ACT-ISTAT (test code=ACTI) 268 SEC [id number] Performed by certified turbogenerator operator at [facility] [id number] 15:23:00* Test Item Value Reference Range Comments ACT-ISTAT (test code=ACTI) 257 SEC [id number] Performed by certified turbogenerator operator at [facility] [id number] 14:43:00* Test Item Value Reference Range Comments ACT-ISTAT (test code=ACTI) 268 SEC [id number] Performed by certified turbogenerator operator at [facility] BASIC METABOLIC [id number] 07:18:00* Test Item Value Reference Range Comments SODIUM (test code=NA) 138 mEq/L 134-147 POTASSIUM (test code=K) 4.9 mEq/L 3.4-5.0 CHLORIDE (test code=CL) 106 mEq/L 100-108 CARBON DIOXIDE (test code=CO2) 26 mEq/L 21-33 ANION GAP (test code=GAP) 11 0-20 GLUCOSE (test code=GLU) 158 mg/dL 70-110 BLOOD UREA NITROGEN (test code=BUN) 32 mg/dL 7-18 GLOMERULAR FILTRATION RATE (test code=GFR) 17.5 70-80 Units of measure=ml/min/1.73 m2 CREATININE (test code=CREAT) 2.6 mg/dL 0.6-1.3 CALCIUM (test code=CA) 8.4 mg/dL 8.0-10.5 [id number] 07:18:00* Test Item Value Reference Range Comments PHOSPHOROUS (test code=PHOS) 3.7 MG/DL 2.5-4.9 [id number] 07:18:00* Test Item Value Reference Range Comments MAGNESIUM (test code=MAG) 1.90 mg/dL 1.8-2.4 CBC W/AUTO [id number] 06:55:00* Test Item Value Reference Range Comments WHITE BLOOD CELL (test code=WBC) 6.04 x10 3/uL 4.5-11.0 RED BLOOD CELL (test code=RBC) 3.04 x10 6/uL 3.54-5.02 HEMOGLOBIN (test code=HGB) 8.6 g/dL 11.0-15.0 HEMATOCRIT (test code=HCT) 29.2 % 33.0-45.0 MEAN CELL VOLUME (test code=MCV) 96.1 fL 81.0-99.0 MEAN CELL HGB (test code=MCH) 28.3 pg 27.0-33.0 MEAN CELL HGB CONCETRATION (test code=MCHC) 29.5 g/dL 33.0-37.0 RED CELL DISTRIBUTION WIDTH CV (test code=RDW) 13.4 % 11.5-14.5 RED CELL DISTRIBUTION WIDTH SD (test code=RDW-SD) 47.1 fL 37.0-54.0 PLATELET COUNT (test code=PLT) 210 x10 3/uL 150-400 MEAN PLATELET VOLUME (test code=MPV) 10.5 fL 7.0-9.0 NEUTROPHIL % (test code=NT%) 60.7 % 56.0-77.0 IMMATURE GRANULOCYTE % (test code=IG%) 0.2 % 0.0-2.0 LYMPHOCYTE % (test code=LY%) 18.4 % 14.0-32.0 MONOCYTE % (test code=MO%) 8.6 % 4.8-9.0 EOSINOPHIL % (test code=EO%) 10.9 % 0.3-3.7 BASOPHIL % (test code=BA%) 1.2 % 0.0-2.0 NUCLEATED RBC % (test code=NRBC%) 0.0 % 0-0 NEUTROPHIL # (test code=NT#) 3.67 x10 3/uL 2.0-7.6 IMMATURE GRANULOCYTE # (test code=IG#) 0.01 x10 3/uL 0.00-0.03 LYMPHOCYTE # (test code=LY#) 1.11 x10 3/uL 1.0-3.8 MONOCYTE # (test code=MO#) 0.52 x10 3/uL 0.1-0.8 EOSINOPHIL # (test code=EO#) 0.66 x10 3/uL 0.0-0.2 BASOPHIL # (test code=BA#) 0.07 x10 3/uL 0.0-0.2 NUCLEATED RBC # (test code=NRBC#) 0.00 x10 3/uL 0.0-0.1 MANUAL DIFF REQUIRED (test code=MDIFF) NO BASIC METABOLIC [id number] 10:58:00* Test Item Value Reference Range Comments SODIUM (test code=NA) 140 mEq/L 134-147 POTASSIUM (test code=K) 4.9 mEq/L 3.4-5.0 CHLORIDE (test code=CL) 110 mEq/L 100-108 CARBON DIOXIDE (test code=CO2) 26 mEq/L 21-33 ANION GAP (test code=GAP) 9 0-20 GLUCOSE (test code=GLU) 152 mg/dL 70-110 BLOOD UREA NITROGEN (test code=BUN) 33 mg/dL 7-18 GLOMERULAR FILTRATION RATE (test code=GFR) 16.1 70-80 Units of measure=ml/min/1.73 m2 CREATININE (test code=CREAT) 2.8 mg/dL 0.6-1.3 CALCIUM (test code=CA) 8.4 mg/dL 8.0-10.5 [id number] 10:58:00* Test Item Value Reference Range Comments PHOSPHOROUS (test code=PHOS) 3.9 MG/DL 2.5-4.9 [id number] 10:58:00* Test Item Value Reference Range Comments MAGNESIUM (test code=MAG) 1.90 mg/dL 1.8-2.4 CBC W/AUTO [id number] 10:27:00* Test Item Value Reference Range Comments WHITE BLOOD CELL (test code=WBC) 5.50 x10 3/uL 4.5-11.0 RED BLOOD CELL (test code=RBC) 2.79 x10 6/uL 3.54-5.02 HEMOGLOBIN (test code=HGB) 7.9 g/dL 11.0-15.0 HEMATOCRIT (test code=HCT) 25.2 % 33.0-45.0 MEAN CELL VOLUME (test code=MCV) 90.3 fL 81.0-99.0 MEAN CELL HGB (test code=MCH) 28.3 pg 27.0-33.0 MEAN CELL HGB CONCETRATION (test code=MCHC) 31.3 g/dL 33.0-37.0 RED CELL DISTRIBUTION WIDTH CV (test code=RDW) 13.2 % 11.5-14.5 RED CELL DISTRIBUTION WIDTH SD (test code=RDW-SD) 43.5 fL 37.0-54.0 PLATELET COUNT (test code=PLT) 182 x10 3/uL 150-400 MEAN PLATELET VOLUME (test code=MPV) 10.1 fL 7.0-9.0 NEUTROPHIL % (test code=NT%) 66.1 % 56.0-77.0 IMMATURE GRANULOCYTE % (test code=IG%) 0.2 % 0.0-2.0 LYMPHOCYTE % (test code=LY%) 14.4 % 14.0-32.0 MONOCYTE % (test code=MO%) 8.4 % 4.8-9.0 EOSINOPHIL % (test code=EO%) 9.8 % 0.3-3.7 BASOPHIL % (test code=BA%) 1.1 % 0.0-2.0 NUCLEATED RBC % (test code=NRBC%) 0.0 % 0-0 NEUTROPHIL # (test code=NT#) 3.64 x10 3/uL 2.0-7.6 IMMATURE GRANULOCYTE # (test code=IG#) 0.01 x10 3/uL 0.00-0.03 LYMPHOCYTE # (test code=LY#) 0.79 x10 3/uL 1.0-3.8 MONOCYTE # (test code=MO#) 0.46 x10 3/uL 0.1-0.8 EOSINOPHIL # (test code=EO#) 0.54 x10 3/uL 0.0-0.2 BASOPHIL # (test code=BA#) 0.06 x10 3/uL 0.0-0.2 NUCLEATED RBC # (test code=NRBC#) 0.00 x10 3/uL 0.0-0.1 MANUAL DIFF REQUIRED (test code=MDIFF) NO [id number] 09:30:00* Test Item Value Reference Range Comments GLUBED (test code=GLUBED) 110 MG/DL 70-110 Performed by certified turbogenerator operator at [facility] BASIC METABOLIC [id number] 08:25:00* Test Item Value Reference Range Comments SODIUM (test code=NA) 139 mEq/L 134-147 POTASSIUM (test code=K) 4.9 mEq/L 3.4-5.0 CHLORIDE (test code=CL) 109 mEq/L 100-108 CARBON DIOXIDE (test code=CO2) 23 mEq/L 21-33 ANION GAP (test code=GAP) 12 0-20 GLUCOSE (test code=GLU) 102 mg/dL 70-110 BLOOD UREA NITROGEN (test code=BUN) 42 mg/dL 7-18 GLOMERULAR FILTRATION RATE (test code=GFR) 13.8 70-80 Units of measure=ml/min/1.73 m2 CREATININE (test code=CREAT) 3.2 mg/dL 0.6-1.3 CALCIUM (test code=CA) 8.5 mg/dL 8.0-10.5 [id number] 08:25:00* Test Item Value Reference Range Comments PHOSPHOROUS (test code=PHOS) 4.4 MG/DL 2.5-4.9 [id number] 08:25:00* Test Item Value Reference Range Comments MAGNESIUM (test code=MAG) 2.10 mg/dL 1.8-2.4 CBC W/AUTO [id number] 07:21:00* Test Item Value Reference Range Comments WHITE BLOOD CELL (test code=WBC) 5.71 x10 3/uL 4.5-11.0 RED BLOOD CELL (test code=RBC) 3.08 x10 6/uL 3.54-5.02 HEMOGLOBIN (test code=HGB) 8.7 g/dL 11.0-15.0 HEMATOCRIT (test code=HCT) 27.6 % 33.0-45.0 MEAN CELL VOLUME (test code=MCV) 89.6 fL 81.0-99.0 MEAN CELL HGB (test code=MCH) 28.2 pg 27.0-33.0 MEAN CELL HGB CONCETRATION (test code=MCHC) 31.5 g/dL 33.0-37.0 RED CELL DISTRIBUTION WIDTH CV (test code=RDW) 13.0 % 11.5-14.5 RED CELL DISTRIBUTION WIDTH SD (test code=RDW-SD) 43.1 fL 37.0-54.0 PLATELET COUNT (test code=PLT) 204 x10 3/uL 150-400 MEAN PLATELET VOLUME (test code=MPV) 10.7 fL 7.0-9.0 NEUTROPHIL % (test code=NT%) 57.6 % 56.0-77.0 IMMATURE GRANULOCYTE % (test code=IG%) 0.2 % 0.0-2.0 LYMPHOCYTE % (test code=LY%) 20.7 % 14.0-32.0 MONOCYTE % (test code=MO%) 9.8 % 4.8-9.0 EOSINOPHIL % (test code=EO%) 10.5 % 0.3-3.7 BASOPHIL % (test code=BA%) 1.2 % 0.0-2.0 NUCLEATED RBC % (test code=NRBC%) 0.0 % 0-0 NEUTROPHIL # (test code=NT#) 3.29 x10 3/uL 2.0-7.6 IMMATURE GRANULOCYTE # (test code=IG#) 0.01 x10 3/uL 0.00-0.03 LYMPHOCYTE # (test code=LY#) 1.18 x10 3/uL 1.0-3.8 MONOCYTE # (test code=MO#) 0.56 x10 3/uL 0.1-0.8 EOSINOPHIL # (test code=EO#) 0.60 x10 3/uL 0.0-0.2 BASOPHIL # (test code=BA#) 0.07 x10 3/uL 0.0-0.2 NUCLEATED RBC # (test code=NRBC#) 0.00 x10 3/uL 0.0-0.1 MANUAL DIFF REQUIRED (test code=MDIFF) NO [id number] 08:16:00* Test Item Value Reference Range Comments GLUBED (test code=GLUBED) 153 MG/DL 70-110 Performed by certified turbogenerator operator at [facility] BASIC METABOLIC [id number] 07:43:00* Test Item Value Reference Range Comments SODIUM (test code=NA) 136 mEq/L 134-147 POTASSIUM (test code=K) 5.1 mEq/L 3.4-5.0 CHLORIDE (test code=CL) 106 mEq/L 100-108 CARBON DIOXIDE (test code=CO2) 21 mEq/L 21-33 ANION GAP (test code=GAP) 14 0-20 GLUCOSE (test code=GLU) 160 mg/dL 70-110 BLOOD UREA NITROGEN (test code=BUN) 39 mg/dL 7-18 GLOMERULAR FILTRATION RATE (test code=GFR) 13.3 70-80 Units of measure=ml/min/1.73 m2 CREATININE (test code=CREAT) 3.3 mg/dL 0.6-1.3 CALCIUM (test code=CA) 8.1 mg/dL 8.0-10.5 [id number] 07:43:00* Test Item Value Reference Range Comments PHOSPHOROUS (test code=PHOS) 4.5 MG/DL 2.5-4.9 [id number] 07:43:00* Test Item Value Reference Range Comments MAGNESIUM (test code=MAG) 1.90 mg/dL 1.8-2.4 [id number] 07:11:00* Test Item Value Reference Range Comments GLUBED (test code=GLUBED) 222 MG/DL 70-110 Performed by certified turbogenerator operator at [facility] CBC W/AUTO [id number] 06:58:00* Test Item Value Reference Range Comments WHITE BLOOD CELL (test code=WBC) 5.92 x10 3/uL 4.5-11.0 RED BLOOD CELL (test code=RBC) 2.99 x10 6/uL 3.54-5.02 HEMOGLOBIN (test code=HGB) 8.4 g/dL 11.0-15.0 HEMATOCRIT (test code=HCT) 26.8 % 33.0-45.0 MEAN CELL VOLUME (test code=MCV) 89.6 fL 81.0-99.0 MEAN CELL HGB (test code=MCH) 28.1 pg 27.0-33.0 MEAN CELL HGB CONCETRATION (test code=MCHC) 31.3 g/dL 33.0-37.0 RED CELL DISTRIBUTION WIDTH CV (test code=RDW) 12.9 % 11.5-14.5 RED CELL DISTRIBUTION WIDTH SD (test code=RDW-SD) 42.5 fL 37.0-54.0 PLATELET COUNT (test code=PLT) 180 x10 3/uL 150-400 MEAN PLATELET VOLUME (test code=MPV) 10.6 fL 7.0-9.0 NEUTROPHIL % (test code=NT%) 66.9 % 56.0-77.0 IMMATURE GRANULOCYTE % (test code=IG%) 0.2 % 0.0-2.0 LYMPHOCYTE % (test code=LY%) 14.5 % 14.0-32.0 MONOCYTE % (test code=MO%) 9.3 % 4.8-9.0 EOSINOPHIL % (test code=EO%) 8.3 % 0.3-3.7 BASOPHIL % (test code=BA%) 0.8 % 0.0-2.0 NUCLEATED RBC % (test code=NRBC%) 0.0 % 0-0 NEUTROPHIL # (test code=NT#) 3.96 x10 3/uL 2.0-7.6 IMMATURE GRANULOCYTE # (test code=IG#) 0.01 x10 3/uL 0.00-0.03 LYMPHOCYTE # (test code=LY#) 0.86 x10 3/uL 1.0-3.8 MONOCYTE # (test code=MO#) 0.55 x10 3/uL 0.1-0.8 EOSINOPHIL # (test code=EO#) 0.49 x10 3/uL 0.0-0.2 BASOPHIL # (test code=BA#) 0.05 x10 3/uL 0.0-0.2 NUCLEATED RBC # (test code=NRBC#) 0.00 x10 3/uL 0.0-0.1 MANUAL DIFF REQUIRED (test code=MDIFF) NO [id number] 20:04:00* Test Item Value Reference Range Comments GLUBED (test code=GLUBED) 224 MG/DL 70-110 Performed by certified turbogenerator operator at [facility] [id number] 18:42:00* Test Item Value Reference Range Comments GLUBED (test code=GLUBED) 137 MG/DL 70-110 Performed by certified turbogenerator operator at [facility] [id number] 16:07:00* Test Item Value Reference Range Comments GLUBED (test code=GLUBED) 148 MG/DL 70-110 Performed by certified turbogenerator operator at [facility] - XR UROGRAM [id number] 15:43:00 FAX: Jatin Olson MD [phone] [place]: St: [facility] FAX: Wilber Harmon MD [phone] Name: LOREN ALMONTE [facility] : 1935 Age/S: 84/F [address] [place] [address] Unit #: [id number] Loc: G.4413 [facility] [address] Phys: Jatin Alexander MD Acct: [id number] Dis Date: Status: ADM IN PHONE #: [phone] Exam Date: 05/31/2019 1519 FAX #: [phone] Reason: RIGHT OBSTRUCTED KIDNEY HYDRONEPHROSIS EXAMS: CPT CODE: [id number] XR UROGRAM RETRO 35963 Intraprocedural fluoroscopy was provided by the Department of Radiology. Any images obtained were interpreted by the surgeon intraop eratively. Reference air kerma: 86 mGy, fluoroscopy time 3 minutes , 26 seconds SL: [id number] Electro nically Signed by Ryder Clements on 05/31/2019 at 1543 Reported and signed by: Sage Clements M.D. CC: Tony Alexander MD; Wilber Bell MD Technologist: RT Tayla(R) Trnscrd Date/Time/By: 05/31/2019 (3062) : By: FritzG Orig Print D/T: S: 05/31/2019 (2327) PAGE 1 Signed Report [id number] 12:55:00* Test Item Value Reference Range Comments GLUBED (test code=GLUBED) 139 MG/DL 70-110 Performed by certified turbogenerator operator at [facility] [id number] 11:52:00* Test Item Value Reference Range Comments GLUBED (test code=GLUBED) 142 MG/DL 70-110 Performed by certified turbogenerator operator at [facility] - US ABDOMEN [id number] 10:22:00 Name: LOREN ALMONTE [facility] : 1935 Age/S: 84 / F [address] [place] [address] Blvd Unit #: [id number] Loc: [place] [address] Phys: Kenny Alexander MD Acct: [id number] Dis Date: Status: ADM IN PHONE #: [phone] Exam Date: 05/31/2019 0958 FAX #: [phone] Reason: Complex hepatic cyst on CT EXAMS: CPT CODE: [id number] ABDOMEN LTD 22027 PROCEDURE: ABDOMINAL ULTRASOUND INDICATION: 84-year-old female with hepatic cyst on CT COMPARISON: CT abdomen/pelvis 05/28/2019 TECHNIQUE: Sonographic evaluation of the abdomen was performed with supplemental color and pulsed Doppler. FINDINGS: LIVER: The liver is normal in size, contour and morphology with normal parenchymal echogenicity. Hepatopedal flow in the main portal vein. Multiple anechoic hepatic lesions with through transmission are noted consistent with cysts. For example, there is a 1.1 x 1.0 x 0.9 cm cyst in the left hepatic lobe. There is a 4.3 x 3.5 x 3.5 cm cyst in the right hepatic lobe. GALLBLADDER: Cholelithiasis. No pericholecystic fluid or wall thickening. Negative sonographic Jorge sign. BILE DUCTS: No biliary dilatation. The common duct measures 3 mm. PANCREAS: The visualized pancreas appears normal. The tail is obscured by bowel gas. KIDNEYS: The right kidney measures 10.6 cm in length. Normal contour and parenchymal echogenicity. There is no nephrolithiasis, mass lesion, or perinephric collection. Mild right hydronephrosis noted, similar to prior exam. Kristopher tional comments: No free intraperitoneal fluid. IMPRESSI ON: 1. Large right hepatic lobe lesion noted on prior CT scan consisten t with a hepatic cyst. Additional smaller cyst noted in the left hepatic lobe. 2. Cholelithiasis. 3. Stable mild right hydroneph rosis. SL: [id number] PAGE 1 Signed Report (CONTINUED) Name: LOREN ALMONTE [facility] : 1935 Age/S: 84 / F [address] [place] [address] Unit #: [id number] Loc: [place] [address] Phys: Kenny Alexander MD Acct: [id number] Dis Date: Status: ADM IN PHONE #: [phone] Exam Date: 05/31/2019 0958 FAX #: [phone] Reason: Complex h epatic cyst on CT EXAMS: CPT CODE: [id number] US ABDOMEN LTD 27024 <Continued> at 1022 Reported and signed by: Mila Viramontes M.D. CC: Kenny Alexander MD; Wilber Bell MD Technologist: Rashmi Wooten RDMS(Jennifer)(BR) Trnscb Date/Time: 05/31/2019 (1022) t.[email or web address] Orig Print D/T: S: 05/31/2019 (1025) Probe: PAGE 2 Signed Report - US PELVIS [id number] 10:17:00 Name: LOREN ALMONTE [facility] : 1935 Age/S: 84 / F [address] [place] [address] Unit #: [id number] Loc: [place] [address] Phys: Kenny Alexander MD Acct: [id number] Dis Date: Status: ADM IN PHONE #: [phone] Exam Date: 05/31/2019 0958 FAX #: [phone] Reason: left Ovarian complex cyst on CT EXAMS: CPT CODE: [id number] US PELVIS COMPLETE 75105 Clinical Indication: 84-year-old female with history of left ovarian complex cyst; Comparison: CT abdomen/pelvis 05/28/2019 TECHNIQUE: Grayscale, color and Doppler transabdominal imaging of the pelvis was performed with standard technique. FINDINGS: UTERUS: Prior hysterectomy. OVARIES: The right ovary is not well seen. The left ovary measures 3.2 x 2.2 cm; evaluation is slightly limited due to bowel gas. There is normal ovarian contour and morphology. Hypoechoic left ovarian lesion is noted measuring 2.0 x 1.3 x 1.7 cm likely representing a cyst. Similar appearing smaller lesion is noted measuring 1.1 cm. There are no adnexal masses. The limited Doppler images show normal bilateral ovarian blood flow. OTHER FINDINGS: There is no free fluid in the pelvic cul-de-sac. If there is further concern, followup pelvic sonography or MRI of the pelvis may be performed. IMPRESSION: 1. Two small hypoechoic lesions in the left ovary favored to represent cysts. Consider follow-up ultrasound in one year to document stability. SL: [id number] at 1017 Reported and signed by: Mila Viramontes M.D. CC: Kenny Alexander MD; Wilber Bell MD Technologist: Rashmi Wooten RDMS(Jennifer)(BR) Trnscb Date/Time: 05/31/2019 (1017) [id number] Orig Print D/T: S: 05/31/2019 (1020) Probe: PAGE 1 Signed Report [id number] 09:00:00* Test Item Value Reference Range Comments GLUBED (test code=GLUBED) 142 MG/DL 70-110 Performed by certified turbogenerator operator at [facility] BASIC METABOLIC [id number] 07:24:00* Test Item Value Reference Range Comments SODIUM (test code=NA) 137 mEq/L 134-147 POTASSIUM (test code=K) 4.9 mEq/L 3.4-5.0 CHLORIDE (test code=CL) 107 mEq/L 100-108 CARBON DIOXIDE (test code=CO2) 22 mEq/L 21-33 ANION GAP (test code=GAP) 13 0-20 GLUCOSE (test code=GLU) 193 mg/dL 70-110 BLOOD UREA NITROGEN (test code=BUN) 37 mg/dL 7-18 GLOMERULAR FILTRATION RATE (test code=GFR) 14.9 70-80 Units of measure=ml/min/1.73 m2 CREATININE (test code=CREAT) 3.0 mg/dL 0.6-1.3 CALCIUM (test code=CA) 8.3 mg/dL 8.0-10.5 [id number] 07:24:00* Test Item Value Reference Range Comments PHOSPHOROUS (test code=PHOS) 5.2 MG/DL 2.5-4.9 [id number] 07:24:00* Test Item Value Reference Range Comments MAGNESIUM (test code=MAG) 1.90 mg/dL 1.8-2.4 CBC W/AUTO [id number] 07:19:00* Test Item Value Reference Range Comments WHITE BLOOD CELL (test code=WBC) 5.53 x10 3/uL 4.5-11.0 RED BLOOD CELL (test code=RBC) 2.95 x10 6/uL 3.54-5.02 HEMOGLOBIN (test code=HGB) 8.3 g/dL 11.0-15.0 HEMATOCRIT (test code=HCT) 26.9 % 33.0-45.0 MEAN CELL VOLUME (test code=MCV) 91.2 fL 81.0-99.0 MEAN CELL HGB (test code=MCH) 28.1 pg 27.0-33.0 MEAN CELL HGB CONCETRATION (test code=MCHC) 30.9 g/dL 33.0-37.0 RED CELL DISTRIBUTION WIDTH CV (test code=RDW) 13.0 % 11.5-14.5 RED CELL DISTRIBUTION WIDTH SD (test code=RDW-SD) 42.9 fL 37.0-54.0 PLATELET COUNT (test code=PLT) 163 x10 3/uL 150-400 MEAN PLATELET VOLUME (test code=MPV) 10.8 fL 7.0-9.0 NEUTROPHIL % (test code=NT%) 64.2 % 56.0-77.0 IMMATURE GRANULOCYTE % (test code=IG%) 0.2 % 0.0-2.0 LYMPHOCYTE % (test code=LY%) 16.1 % 14.0-32.0 MONOCYTE % (test code=MO%) 8.7 % 4.8-9.0 EOSINOPHIL % (test code=EO%) 9.9 % 0.3-3.7 BASOPHIL % (test code=BA%) 0.9 % 0.0-2.0 NUCLEATED RBC % (test code=NRBC%) 0.0 % 0-0 NEUTROPHIL # (test code=NT#) 3.55 x10 3/uL 2.0-7.6 IMMATURE GRANULOCYTE # (test code=IG#) 0.01 x10 3/uL 0.00-0.03 LYMPHOCYTE # (test code=LY#) 0.89 x10 3/uL 1.0-3.8 MONOCYTE # (test code=MO#) 0.48 x10 3/uL 0.1-0.8 EOSINOPHIL # (test code=EO#) 0.55 x10 3/uL 0.0-0.2 BASOPHIL # (test code=BA#) 0.05 x10 3/uL 0.0-0.2 NUCLEATED RBC # (test code=NRBC#) 0.00 x10 3/uL 0.0-0.1 MANUAL DIFF REQUIRED (test code=MDIFF) NO [id number] 22:44:00* Test Item Value Reference Range Comments GLUBED (test code=GLUBED) 111 MG/DL 70-110 Performed by certified turbogenerator operator at [facility] [id number] 21:24:00* Test Item Value Reference Range Comments GLUBED (test code=GLUBED) 66 MG/DL 70-110 Performed by certified turbogenerator operator at [facility] [id number] 17:17:00* Test Item Value Reference Range Comments GLUBED (test code=GLUBED) 204 MG/DL 70-110 Performed by certified turbogenerator operator at [facility] [id number] 08:24:00* Test Item Value Reference Range Comments GLUBED (test code=GLUBED) 272 MG/DL 70-110 Performed by certified turbogenerator operator at [facility] BASIC METABOLIC [id number] 06:28:00* Test Item Value Reference Range Comments SODIUM (test code=NA) 135 mEq/L 134-147 POTASSIUM (test code=K) 4.9 mEq/L 3.4-5.0 CHLORIDE (test code=CL) 107 mEq/L 100-108 CARBON DIOXIDE (test code=CO2) 21 mEq/L 21-33 ANION GAP (test code=GAP) 12 0-20 GLUCOSE (test code=GLU) 313 mg/dL 70-110 BLOOD UREA NITROGEN (test code=BUN) 38 mg/dL 7-18 GLOMERULAR FILTRATION RATE (test code=GFR) 14.9 70-80 Units of measure=ml/min/1.73 m2 CREATININE (test code=CREAT) 3.0 mg/dL 0.6-1.3 CALCIUM (test code=CA) 8.2 mg/dL 8.0-10.5 COMMENTS: To be done morning of Heart [id number] 06:28:00* Test Item Value Reference Range Comments PHOSPHOROUS (test code=PHOS) 5.5 MG/DL 2.5-4.9 COMMENTS: To be done morning of Heart [id number] 06:28:00* Test Item Value Reference Range Comments MAGNESIUM (test code=MAG) 1.90 mg/dL 1.8-2.4 COMMENTS: To be done morning of Heart Cath- XR CHEST 1 [id number] 06:28:00 FAX: Wilber Harmon MD [phone] [place]: St: ADM Name: Dali YOLANDA,LOREN [facility] : [birth year] Age/S: 84/F [address] [place] [address] Unit #: [id number] Loc: G.44[address] [place] [address] Phys: Abhijit Steve MD Acct: [id number] Dis Date: Status: ADM IN PHONE #: [phone] Exam Date: 05/30/2019 05 FAX #: [phone] Reason: PRE PROCEDURE EXAMS: CPT CODE: [id number] XR CHEST 1 V 31646 EXAM: CR, XR chest one view: 05/29, 0518 hours HISTORY: PRE PROCEDURE TECHNIQUE: 1 view of the chest. COMPARISON: 05/25/2019 FINDINGS: Trachea is midline. Cardiomediastinal silhouette is stable. Calc ified plaque seen in aortic arch. There is no pleural effusion or pneumoth orax. Bilateral lower lobe opacity has improved. IMPRESSIO N: 1. Interval improvement of bilateral lower lobe opacities which may represent improving atelectasis or pneumonia. SL: [[id number]] at 0628 Reported and signed by: Ryne Wayne M.D. CC: Wilber Bell MD Techn ologist: Windy Quintana, RT(R); Belinda Duenas, RT(R) Trnnjrd Date/Jermaine e/By: 05/30/2019 (627) : By: [email or web address] Orig Print D/T: S: 05/30/2019 (3019) PAGE 1 Signed Report BASIC METABOLIC [id number] 06:23:00* Test Item Value Reference Range Comments SODIUM (test code=NA) 135 mEq/L 134-147 POTASSIUM (test code=K) 4.9 mEq/L 3.4-5.0 CHLORIDE (test code=CL) 107 mEq/L 100-108 CARBON DIOXIDE (test code=CO2) 21 mEq/L 21-33 ANION GAP (test code=GAP) 12 0-20 GLUCOSE (test code=GLU) 313 mg/dL 70-110 BLOOD UREA NITROGEN (test code=BUN) 38 mg/dL 7-18 GLOMERULAR FILTRATION RATE (test code=GFR) 70-80 CREATININE (test code=CREAT) mg/dL 0.6-1.3 CALCIUM (test code=CA) 8.2 mg/dL 8.0-10.5 COMMENTS: To be done morning of Heart [id number] 06:23:00* Test Item Value Reference Range Comments PHOSPHOROUS (test code=PHOS) MG/DL 2.5-4.9 COMMENTS: To be done morning of Heart [id number] 06:23:00* Test Item Value Reference Range Comments MAGNESIUM (test code=MAG) 1.90 mg/dL 1.8-2.4 COMMENTS: To be done morning of Heart CathPROTHROMBIN [id number] 06:17:00* Test Item Value Reference Range Comments PROTHROMBIN TIME PATIENT (test code=PTP) 11.3 SECONDS 9.3-12.9 INTERNATIONAL NORMAL RATIO (test code=INR) 1.0 0.8-1.2 TARGET INR BY INDICATION Indication INR1. Prophylaxis of venous thrombosis 2.0 - 3.0 (orthopedic surgery), Prophylaxis of venous thrombosis (other than high-risk surgery), Treatment of Deep Vein Thrombosis/Pulmonary Embolism, Prevention of systemic embolism - Tissue heart valves, Acute Myocardial Infarction (to prevent systemic embolism), Valvular heart disease, Atrial Fibrillation, Bileaflet mechanical valve in aortic position.2. Mechanical prosthetic valves (high risk), 2.5 - 3.5 Presence of Lupus Anticoagulant or Antiphospholipid Antibodies, Prevention of systemic embolism - Acute Myocardial Infarction (to prevent recurrent infarct). CBC W/AUTO [id number] 06:11:00* Test Item Value Reference Range Comments WHITE BLOOD CELL (test code=WBC) 5.37 x10 3/uL 4.5-11.0 RED BLOOD CELL (test code=RBC) 3.24 x10 6/uL 3.54-5.02 HEMOGLOBIN (test code=HGB) 9.2 g/dL 11.0-15.0 HEMATOCRIT (test code=HCT) 29.8 % 33.0-45.0 MEAN CELL VOLUME (test code=MCV) 92.0 fL 81.0-99.0 MEAN CELL HGB (test code=MCH) 28.4 pg 27.0-33.0 MEAN CELL HGB CONCETRATION (test code=MCHC) 30.9 g/dL 33.0-37.0 RED CELL DISTRIBUTION WIDTH CV (test code=RDW) 13.1 % 11.5-14.5 RED CELL DISTRIBUTION WIDTH SD (test code=RDW-SD) 43.4 fL 37.0-54.0 PLATELET COUNT (test code=PLT) 182 x10 3/uL 150-400 MEAN PLATELET VOLUME (test code=MPV) 10.5 fL 7.0-9.0 NEUTROPHIL % (test code=NT%) 69.5 % 56.0-77.0 IMMATURE GRANULOCYTE % (test code=IG%) 0.2 % 0.0-2.0 LYMPHOCYTE % (test code=LY%) 16.2 % 14.0-32.0 MONOCYTE % (test code=MO%) 7.8 % 4.8-9.0 EOSINOPHIL % (test code=EO%) 5.2 % 0.3-3.7 BASOPHIL % (test code=BA%) 1.1 % 0.0-2.0 NUCLEATED RBC % (test code=NRBC%) 0.0 % 0-0 NEUTROPHIL # (test code=NT#) 3.73 x10 3/uL 2.0-7.6 IMMATURE GRANULOCYTE # (test code=IG#) 0.01 x10 3/uL 0.00-0.03 LYMPHOCYTE # (test code=LY#) 0.87 x10 3/uL 1.0-3.8 MONOCYTE # (test code=MO#) 0.42 x10 3/uL 0.1-0.8 EOSINOPHIL # (test code=EO#) 0.28 x10 3/uL 0.0-0.2 BASOPHIL # (test code=BA#) 0.06 x10 3/uL 0.0-0.2 NUCLEATED RBC # (test code=NRBC#) 0.00 x10 3/uL 0.0-0.1 MANUAL DIFF REQUIRED (test code=MDIFF) NO COMMENTS: To be done morning of Heart [id number] 23:43:00* Test Item Value Reference Range Comments GLUBED (test code=GLUBED) 157 MG/DL 70-110 Performed by certified turbogenerator operator at [facility] [id number] 23:43:00* Test Item Value Reference Range Comments GLUBED (test code=GLUBED) 64 MG/DL 70-110 Performed by certified turbogenerator operator at [facility] [id number] 19:53:00* Test Item Value Reference Range Comments GLUBED (test code=GLUBED) 93 MG/DL 70-110 Performed by certified turbogenerator operator at [facility] [id number] 17:06:00* Test Item Value Reference Range Comments GLUBED (test code=GLUBED) 191 MG/DL 70-110 Performed by certified turbogenerator operator at [facility] - NM RENAL FUNCT W/PHA [id number] 12:00:00 FAX: Jatin Olson MD [phone] [place]: St: [facility] FAX: Wilber Harmon MD [phone] Name: LOREN ALMONTE [facility] [place] : 1935 Age/S: 84/F [address] [place] [address] Blvd Unit #: [id number] Loc: Alisha[address] [place] [address] Phys: Jatin Alexander MD Acct: [id number] Dis Date: Status: ADM IN PHONE #: [phone] Exam Date: 05/29/2019 1043 FAX #: [phone] Reason: assess for obstruction EXAMS: CPT CODE: [id number] NM RENAL FUNCT W/[place] SGL [address] NUCLEAR MEDICINE RENAL BLOOD FLOW AND FUNCTION WITH MAG3 AND DIU RETIC LASIX RENOGRAM 05/29/2019 AT 0 620 HOURS. CLINICAL HIST ORY: JACQUELINE. Possible chronic kidney disease. Renal atrophy with mild right h ydronephrosis. Assess for obstruction. COMPARISON STUDIES: Abdomen and pelvis CT 05/28/2019 and renal ultrasound 05/26/2019. RAD IOPHARMACEUTICAL: 10 mCi of 99 M technetium MAG3 via right antecubital IV. 40 mg of Lasix were then administered intravenously at 32 minutes and diu retic time/activity curves for both kidneys were obtained. No reported inj ection complication identified. FINDINGS: Posterior blood flow and function images of the kidneys were obtained. Blood flow images demonstra te symmetric bilateral renal parenchymal perfusion with early visualizatio n of renal activity after approximately 4 seconds after visualization of a ortic activity. Progressive radiotracer retention in the right kidney in t he presence of a dilated collecting system. Slightly delayed right renal radiotracer excretion into a dilated renal collecting system. Estimat ed time to peak activity for the right and left kidney is 40 and 24 minute s, respectively. Reference range is within 3-5 minutes. Estimated differential uptake for the right and left kidney is 62% and 38%, respect ively. Total estimated diuretic T-1/2 for the right and left kidn ey is 66 and greater than 60 minutes, respectively. While still abnormal, T-1/2 is probably artifactually elevated in the left kidney. This is in t he presence of low baseline radiotracer activity at the time of Lasix administration. Reference range is between 8 and 12 minutes. IMPRESSION: 1. Dilated, obstructed right renal collecting system with im paired diuretic response. 2. Nondilated left renal collecting sy stem with no significant diuretic response by baseline low-level radiotr acer excretion. Consider chronic renal insufficiency. 3. Estimat ed diuretic T-1/2 for the right and left kidney of 66 and greater than 6 0 minutes, respectively. 4. Estimated renal plasma flow is 81 mL/min. 5. Differential radiotracer uptake for the right and left kidney is 62 and 38%, respectively. PAGE 1 Signed Report (CONTINUED) FAX: Jatin Olson MD [phone] [place]: St: ADM FAX: Wilber Harmon MD [phone] Name: LOREN ECHEVARRIA [facility] : 1935 Age/S: 84/F [address] [place] [address] Bl Unit #: [id number] L oc: G.4413 [place] [address] Phys: Jatin Alexander MD Acct: [id number] Dis Date: Status: ADM IN PHONE #: [phone] Exam Date: 05/29/2019 1043 FAX #: [phone] Re ason: assess for obstruction EXAMS: CPT CODE: [id number] NM RENAL FUNCT W/PHA SGL [address]8592 <Continued> SL: [id number] at 1200 Reported and signed by: Amos Rogers M.D. CC: Jatin Alexander MD; Wilber Bell MD Technologist: ESEQUIEL DuboisT (N)(CT); ... Trnscrd Date/Time/By: 05/29/2019 (1200) : By: [email or web address] Orig Print D/T: S: 05/29/2019 (6418) PAGE 2 Signed Report [id number] 11:45:00* Test Item Value Reference Range Comments GLUBED (test code=GLUBED) 180 MG/DL 70-110 Performed by certified turbogenerator operator at [facility] [id number] 08:19:00* Test Item Value Reference Range Comments GLUBED (test code=GLUBED) 158 MG/DL 70-110 Performed by certified turbogenerator operator at [facility] CBC W/AUTO [id number] 06:24:00* Test Item Value Reference Range Comments WHITE BLOOD CELL (test code=WBC) 6.70 x10 3/uL 4.5-11.0 RED BLOOD CELL (test code=RBC) 3.41 x10 6/uL 3.54-5.02 HEMOGLOBIN (test code=HGB) 9.5 g/dL 11.0-15.0 HEMATOCRIT (test code=HCT) 31.1 % 33.0-45.0 MEAN CELL VOLUME (test code=MCV) 91.2 fL 81.0-99.0 MEAN CELL HGB (test code=MCH) 27.9 pg 27.0-33.0 MEAN CELL HGB CONCETRATION (test code=MCHC) 30.5 g/dL 33.0-37.0 RED CELL DISTRIBUTION WIDTH CV (test code=RDW) 13.2 % 11.5-14.5 RED CELL DISTRIBUTION WIDTH SD (test code=RDW-SD) 43.5 fL 37.0-54.0 PLATELET COUNT (test code=PLT) 190 x10 3/uL 150-400 MEAN PLATELET VOLUME (test code=MPV) 10.5 fL 7.0-9.0 NEUTROPHIL % (test code=NT%) 60.2 % 56.0-77.0 IMMATURE GRANULOCYTE % (test code=IG%) 0.1 % 0.0-2.0 LYMPHOCYTE % (test code=LY%) 21.9 % 14.0-32.0 MONOCYTE % (test code=MO%) 8.4 % 4.8-9.0 EOSINOPHIL % (test code=EO%) 8.2 % 0.3-3.7 BASOPHIL % (test code=BA%) 1.2 % 0.0-2.0 NUCLEATED RBC % (test code=NRBC%) 0.0 % 0-0 NEUTROPHIL # (test code=NT#) 4.03 x10 3/uL 2.0-7.6 IMMATURE GRANULOCYTE # (test code=IG#) 0.01 x10 3/uL 0.00-0.03 LYMPHOCYTE # (test code=LY#) 1.47 x10 3/uL 1.0-3.8 MONOCYTE # (test code=MO#) 0.56 x10 3/uL 0.1-0.8 EOSINOPHIL # (test code=EO#) 0.55 x10 3/uL 0.0-0.2 BASOPHIL # (test code=BA#) 0.08 x10 3/uL 0.0-0.2 NUCLEATED RBC # (test code=NRBC#) 0.00 x10 3/uL 0.0-0.1 MANUAL DIFF REQUIRED (test code=MDIFF) NO COMMENTS: To be done morning of Heart CathBASIC METABOLIC [id number] 06:18:00* Test Item Value Reference Range Comments SODIUM (test code=NA) 138 mEq/L 134-147 POTASSIUM (test code=K) 4.9 mEq/L 3.4-5.0 CHLORIDE (test code=CL) 110 mEq/L 100-108 CARBON DIOXIDE (test code=CO2) 21 mEq/L 21-33 ANION GAP (test code=GAP) 12 0-20 GLUCOSE (test code=GLU) 155 mg/dL 70-110 BLOOD UREA NITROGEN (test code=BUN) 34 mg/dL 7-18 GLOMERULAR FILTRATION RATE (test code=GFR) 18.3 70-80 Units of measure=ml/min/1.73 m2 CREATININE (test code=CREAT) 2.5 mg/dL 0.6-1.3 CALCIUM (test code=CA) 8.2 mg/dL 8.0-10.5 COMMENTS: To be done morning of Heart [id number] 06:18:00* Test Item Value Reference Range Comments PHOSPHOROUS (test code=PHOS) 4.1 MG/DL 2.5-4.9 COMMENTS: To be done morning of Heart [id number] 06:18:00* Test Item Value Reference Range Comments MAGNESIUM (test code=MAG) 1.80 mg/dL 1.8-2.4 COMMENTS: To be done morning of Heart CathBASIC METABOLIC [id number] 06:14:00* Test Item Value Reference Range Comments SODIUM (test code=NA) 138 mEq/L 134-147 POTASSIUM (test code=K) 4.9 mEq/L 3.4-5.0 CHLORIDE (test code=CL) 110 mEq/L 100-108 CARBON DIOXIDE (test code=CO2) 21 mEq/L 21-33 ANION GAP (test code=GAP) 12 0-20 GLUCOSE (test code=GLU) 155 mg/dL 70-110 BLOOD UREA NITROGEN (test code=BUN) 34 mg/dL 7-18 GLOMERULAR FILTRATION RATE (test code=GFR) 70-80 CREATININE (test code=CREAT) mg/dL 0.6-1.3 CALCIUM (test code=CA) 8.2 mg/dL 8.0-10.5 COMMENTS: To be done morning of Heart [id number] 06:14:00* Test Item Value Reference Range Comments PHOSPHOROUS (test code=PHOS) MG/DL 2.5-4.9 COMMENTS: To be done morning of Heart [id number] 06:14:00* Test Item Value Reference Range Comments MAGNESIUM (test code=MAG) 1.80 mg/dL 1.8-2.4 COMMENTS: To be done morning of Heart [id number] 20:33:00* Test Item Value Reference Range Comments GLUBED (test code=GLUBED) 229 MG/DL 70-110 Performed by certified turbogenerator operator at [facility] - CT ABD PELVIS W/O [id number] 19:08:00 Name: LOREN ALMONTE [facility] : 1935 Age/S: 84 / F [address] [place] [address] Unit #: [id number] Loc: [place] [address] Phys: Jatin Alexander MD Acct: [id number] Dis Date: Status: ADM IN PHONE #: [phone] Exam Date: 05/28/2019 183 FAX #: [phone] Reason: HYDRONEPHROSIS EXAMS: CPT CODE: [id number] CT ABD PELVIS W/O CONT [address]5730 CT ABDOMEN AND PELVIS WITHOUT CONTRAST INDICATION: Hydronephrosis. Acute chest pain. TECHNIQUE: Unenhanced CT imaging of the abdomen and pelvis with axial, coronal and sagittal reconstructions. CT imaging performed at this location utilizes radiation dose optimization technique which includes one or more of the followin) Automated exposure control; 2) Adjustment of the mA and/or kV according to patient's size; 3) Use of iterative reconstruction techniques. DLP (mGy-cm): 304 COMPARISONS: Renal ultrasound 05/26/2019 FINDINGS: There is no acute osseous fr acture or dislocation. There are tiny bilateral fat filled noninfl paty inguinal hernias. There is no organized fluid collection or m ass in the soft tissues. There is edema in the right groin subcutaneous f at consistent with recent vascular access site. There is inc ompletely imaged cardiomegaly and heavy coronary artery calcification. The re is moderate atherosclerotic vascular calcification of the aorta. The ao rta reveals no aneurysm or acute process. The inferior vena cava reveals n o acute process. The lung bases reveal no acute process. There is mild bronchiectasis. There is atelectasis within the dependent lungs. The re is a moderately large 7.2 x 4.4 x 10.8 cm right hemidiaphragm Bochdalek hernia containing noninflamed fat. There is a complex fluid density 25 Hounsfield unit 4.3 x 3.1 cm well-defined lesion within the an terior inferior and superior segments of the right hepatic lobe. There is a subcentimeter cyst in the left hepatic lobe. There is no acute hepatic process. There is a 2.1 cm calcified gallstone within the gallbl adder lumen. There is no evidence of acute cholecystitis or bile duct obs truction. The pancreas reveals no acute process. T he spleen reveals no acute process. There are calcified granulomas in the spleen. PAGE 1 Signed Report (CO NTINUED) Name: LOREN ALMONTE [facility] : 1935 Age/S: 84 / F [address] [place] [address] Unit #: [id number] Loc: [place] [address] Phys: Jatin Ernandez MD Acct: [id number] Dis Date: Status: ADM IN P FREDY #: [phone] Exam Date: 05/28/2019 1835 FAX #: [phone] Reason: HYDRONEPHROSIS EX AMS: CPT CODE: [id number] CT A BD PELVIS W/O CONT 14957 <Continued> The adrenal glands reveal no acute process. There is a 6 mm lipid rich left adrenal adenoma with a density of -18 Hounsfield units. Clip no follow up There is contrast within both renal collecting systems secondary to a recent prior contrast-enhanced study. There is mild right hydronephrosis. There is no ureteral calculus detected however there is contrast in the proximal right ureter which could obscure a calculus. There is question of a proximal right ureteral stricture at the ureteropelvic junction. There is no dilation of the mid and distal right ureter. There is no left hydronephrosis. There is moderate left and mild right renal atrophy. There are moderately heavy calcifications of the bilateral renal artery origins. The urinary bladder reveals no acu te process. There is contrast within the urinary bladder lumen. The uterus is absent. There are benign vascular calcifications in the pelvis. The left ovary is present and demonstrates a 2.2 cm complex fluid density 38 Hounsfield unit lesion. There is no intra-abdominal f ree fluid. There is no intra-abdominal free gas. There is no lymphadenopat hy. There is a small hiatal hernia. There is severe nonacute col onic diverticulosis. There is no bowel obstruction. There is no bowel mucosal thickening or inflammation. The appendix is not visualized. T here is no CT evidence of acute appendicitis detected. IMPRESSIO N: 1. There is contrast within both renal collecting systems secondary to a recent prior contrast-enhanced study. There is mild righ t hydronephrosis. There is no ureteral calculus detected however there is contrast in the proximal right ureter which could obscure a c alculus. There is question of a proximal right ureteral stricture at t he ureteropelvic junction. There is no dilation of the mid and distal r ight ureter. There is no left hydronephrosis. There is moderate left a nd mild right renal atrophy. There are moderately heavy calcifications of the bilateral renal artery origins. 2. There is an indeterminate co mplex fluid density 25 Hounsfield unit 4.3 x 3.1 cm well-defined lesion within the anterior inferior and superior segments of the right hepatic lobe.This is probably a complex PAGE 2 Signed Report (CONTINUED) Name: FAVIOLA ALMONTEA [facility] : 1935 Age/S: 84 / F [address] Unit #: [id number] Loc: [place] [address] Phys: Jatin Alexander MD Acct: [id number] Dis Date: Status: ADM IN PHONE #: [phone] Exam Date: 05/28/2019 183 FAX #: [phone] Reason: HYDRONEPHROSIS EXAMS: CPT CODE: [id number] CT ABD PELVIS W/O CONT 75445 < Continued> cyst but neoplasm is not entirely excluded. Consider nonemergent follow-up hepatic ultrasound or unenhanced and dynamic contrast-enhanced CT or MRI to evaluate the liver. 3. The left ovary is present and demonstrates a 2.2 cm complex fluid density 38 Hounsfield unit lesion. Nonemergent follow-up pelvic ultrasound is recommended to evaluate this lesion further. 4. There is cholelithiasis without evidence of cholecystitis or bile duct obstruction. 5. There is severe nonacute colonic diverticulosis. 6. There is incompletely imaged cardiomegaly and heavy coronary artery calcification. 7. 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 at 1908 Reported and signed by: Zack Haley D.O. CC: Jatin Alexander MD; Wilber Bell MD Technologist:Jase Rosales, RT(R) CTDI: DLP: Trnscb Date/Time: 05/28/2019 (1907) [email or web address] Orig Print D/T: S: 05/28/2019 (1910) PAGE 3 Signed Report [id number] 16:57:00* Test Item Value Reference Range Comments GLUBED (test code=GLUBED) 212 MG/DL 70-110 Performed by certified turbogenerator operator at [facility] [id number] 14:30:00* Test Item Value Reference Range Comments ACT-ISTAT (test code=ACTI) 153 SEC 74-137 Performed by certified turbogenerator operator at [facility] [id number] 13:23:00* Test Item Value Reference Range Comments ACT-ISTAT (test code=ACTI) 164 SEC 74-137 Performed by certified turbogenerator operator at [facility] [id number] 12:23:00* Test Item Value Reference Range Comments ACT-ISTAT (test code=ACTI) 180 SEC 74-137 Performed by certified turbogenerator operator at [facility] [id number] 10:35:00* Test Item Value Reference Range Comments ACT-ISTAT (test code=ACTI) 252 SEC 74-137 Performed by certified turbogenerator operator at [facility] BASIC METABOLIC [id number] 08:31:00* Test Item Value Reference Range Comments SODIUM (test code=NA) 138 mEq/L 134-147 POTASSIUM (test code=K) 4.8 mEq/L 3.4-5.0 CHLORIDE (test code=CL) 110 mEq/L 100-108 CARBON DIOXIDE (test code=CO2) 21 mEq/L 21-33 ANION GAP (test code=GAP) 12 0-20 GLUCOSE (test code=GLU) 194 mg/dL 70-110 BLOOD UREA NITROGEN (test code=BUN) 34 mg/dL 7-18 GLOMERULAR FILTRATION RATE (test code=GFR) 18.3 70-80 Units of measure=ml/min/1.73 m2 CREATININE (test code=CREAT) 2.5 mg/dL 0.6-1.3 CALCIUM (test code=CA) 8.3 mg/dL 8.0-10.5 [id number] 08:31:00* Test Item Value Reference Range Comments PHOSPHOROUS (test code=PHOS) 3.7 MG/DL 2.5-4.9 [id number] 08:31:00* Test Item Value Reference Range Comments MAGNESIUM (test code=MAG) 1.70 mg/dL 1.8-2.4 [id number] 08:06:00* Test Item Value Reference Range Comments GLUBED (test code=GLUBED) 85 MG/DL 70-110 Performed by certified turbogenerator operator at [facility] [id number] 07:27:00* Test Item Value Reference Range Comments TROPONIN-I (test code=TROPI) 0.106 ng/mL 0.000-0.045 Negative: <=0.045 Positive: >=0.046 Correlation with serial results, other cardiac markers andclinical findings is necessary to determine the clinicalsignificance of this result. Results using different methodologies should not be comparedto one another as quantitative results may vary by method. CBC W/AUTO [id number] 07:20:00* Test Item Value Reference Range Comments WHITE BLOOD CELL (test code=WBC) 4.52 x10 3/uL 4.5-11.0 RED BLOOD CELL (test code=RBC) 3.21 x10 6/uL 3.54-5.02 HEMOGLOBIN (test code=HGB) 9.1 g/dL 11.0-15.0 HEMATOCRIT (test code=HCT) 29.3 % 33.0-45.0 MEAN CELL VOLUME (test code=MCV) 91.3 fL 81.0-99.0 MEAN CELL HGB (test code=MCH) 28.3 pg 27.0-33.0 MEAN CELL HGB CONCETRATION (test code=MCHC) 31.1 g/dL 33.0-37.0 RED CELL DISTRIBUTION WIDTH CV (test code=RDW) 13.1 % 11.5-14.5 RED CELL DISTRIBUTION WIDTH SD (test code=RDW-SD) 43.0 fL 37.0-54.0 PLATELET COUNT (test code=PLT) 174 x10 3/uL 150-400 MEAN PLATELET VOLUME (test code=MPV) 10.5 fL 7.0-9.0 NEUTROPHIL % (test code=NT%) 47.6 % 56.0-77.0 IMMATURE GRANULOCYTE % (test code=IG%) 0.2 % 0.0-2.0 LYMPHOCYTE % (test code=LY%) 30.1 % 14.0-32.0 MONOCYTE % (test code=MO%) 9.7 % 4.8-9.0 EOSINOPHIL % (test code=EO%) 11.1 % 0.3-3.7 BASOPHIL % (test code=BA%) 1.3 % 0.0-2.0 NUCLEATED RBC % (test code=NRBC%) 0.0 % 0-0 NEUTROPHIL # (test code=NT#) 2.15 x10 3/uL 2.0-7.6 IMMATURE GRANULOCYTE # (test code=IG#) 0.01 x10 3/uL 0.00-0.03 LYMPHOCYTE # (test code=LY#) 1.36 x10 3/uL 1.0-3.8 MONOCYTE # (test code=MO#) 0.44 x10 3/uL 0.1-0.8 EOSINOPHIL # (test code=EO#) 0.50 x10 3/uL 0.0-0.2 BASOPHIL # (test code=BA#) 0.06 x10 3/uL 0.0-0.2 NUCLEATED RBC # (test code=NRBC#) 0.00 x10 3/uL 0.0-0.1 MANUAL DIFF REQUIRED (test code=MDIFF) NO [id number] 20:17:00* Test Item Value Reference Range Comments GLUBED (test code=GLUBED) 212 MG/DL 70-110 Performed by certified turbogenerator operator at [facility] [id number] 17:16:00* Test Item Value Reference Range Comments GLUBED (test code=GLUBED) 196 MG/DL 70-110 Performed by certified turbogenerator operator at [facility] [id number] 14:22:00* Test Item Value Reference Range Comments GLUBED (test code=GLUBED) 79 MG/DL 70-110 Performed by certified turbogenerator operator at [facility] [id number] 14:09:00* Test Item Value Reference Range Comments GLUBED (test code=GLUBED) 66 MG/DL 70-110 Performed by certified turbogenerator operator at [facility] [id number] 11:21:00* Test Item Value Reference Range Comments GLUBED (test code=GLUBED) 231 MG/DL 70-110 Performed by certified turbogenerator operator at [facility] [id number] 08:20:00* Test Item Value Reference Range Comments GLUBED (test code=GLUBED) 142 MG/DL 70-110 Performed by certified turbogenerator operator at [facility] BASIC METABOLIC [id number] 07:49:00* Test Item Value Reference Range Comments SODIUM (test code=NA) 138 mEq/L 134-147 POTASSIUM (test code=K) 4.3 mEq/L 3.4-5.0 CHLORIDE (test code=CL) 110 mEq/L 100-108 CARBON DIOXIDE (test code=CO2) 22 mEq/L 21-33 ANION GAP (test code=GAP) 10 0-20 GLUCOSE (test code=GLU) 157 mg/dL 70-110 BLOOD UREA NITROGEN (test code=BUN) 30 mg/dL 7-18 GLOMERULAR FILTRATION RATE (test code=GFR) 19.2 70-80 Units of measure=ml/min/1.73 m2 CREATININE (test code=CREAT) 2.4 mg/dL 0.6-1.3 CALCIUM (test code=CA) 8.4 mg/dL 8.0-10.5 [id number] 07:49:00* Test Item Value Reference Range Comments PHOSPHOROUS (test code=PHOS) 3.8 MG/DL 2.5-4.9 [id number] 07:49:00* Test Item Value Reference Range Comments MAGNESIUM (test code=MAG) 1.70 mg/dL 1.8-2.4 CBC W/AUTO [id number] 07:16:00* Test Item Value Reference Range Comments WHITE BLOOD CELL (test code=WBC) 4.76 x10 3/uL 4.5-11.0 RED BLOOD CELL (test code=RBC) 3.06 x10 6/uL 3.54-5.02 HEMOGLOBIN (test code=HGB) 8.7 g/dL 11.0-15.0 HEMATOCRIT (test code=HCT) 27.5 % 33.0-45.0 MEAN CELL VOLUME (test code=MCV) 89.9 fL 81.0-99.0 MEAN CELL HGB (test code=MCH) 28.4 pg 27.0-33.0 MEAN CELL HGB CONCETRATION (test code=MCHC) 31.6 g/dL 33.0-37.0 RED CELL DISTRIBUTION WIDTH CV (test code=RDW) 13.1 % 11.5-14.5 RED CELL DISTRIBUTION WIDTH SD (test code=RDW-SD) 42.9 fL 37.0-54.0 PLATELET COUNT (test code=PLT) 180 x10 3/uL 150-400 MEAN PLATELET VOLUME (test code=MPV) 10.5 fL 7.0-9.0 NEUTROPHIL % (test code=NT%) 45.8 % 56.0-77.0 IMMATURE GRANULOCYTE % (test code=IG%) 0.2 % 0.0-2.0 LYMPHOCYTE % (test code=LY%) 31.5 % 14.0-32.0 MONOCYTE % (test code=MO%) 8.2 % 4.8-9.0 EOSINOPHIL % (test code=EO%) 13.0 % 0.3-3.7 BASOPHIL % (test code=BA%) 1.3 % 0.0-2.0 NUCLEATED RBC % (test code=NRBC%) 0.0 % 0-0 NEUTROPHIL # (test code=NT#) 2.18 x10 3/uL 2.0-7.6 IMMATURE GRANULOCYTE # (test code=IG#) 0.01 x10 3/uL 0.00-0.03 LYMPHOCYTE # (test code=LY#) 1.50 x10 3/uL 1.0-3.8 MONOCYTE # (test code=MO#) 0.39 x10 3/uL 0.1-0.8 EOSINOPHIL # (test code=EO#) 0.62 x10 3/uL 0.0-0.2 BASOPHIL # (test code=BA#) 0.06 x10 3/uL 0.0-0.2 NUCLEATED RBC # (test code=NRBC#) 0.00 x10 3/uL 0.0-0.1 MANUAL DIFF REQUIRED (test code=MDIFF) NO [id number] 04:56:00* Test Item Value Reference Range Comments GLUBED (test code=GLUBED) 260 MG/DL 70-110 Performed by certified turbogenerator operator at [facility] TOTAL IRON BINDING [id number] 18:38:00* Test Item Value Reference Range Comments SERUM IRON (test code=IRON) 63 mcg/dL 35-150 TOTAL IRON BINDING CAPACITY (test code=TIBC) 249 mcg/dL 260-445 UIBC (test code=UIBC) 186 mcg/dL IRON SATURATION (test code=FESAT) 25.3 % 14-34 VITAMIN [id number] 18:38:00* Test Item Value Reference Range Comments VITAMIN B12 (test code=VITB12) 568 pg/mL 193-986 [id number] 18:38:00* Test Item Value Reference Range Comments FERRITIN (test code=NUPUR) 128.3 ng/mL 11.0-306.8 [id number] 18:06:00* Test Item Value Reference Range Comments TROPONIN-I (test code=TROPI) 0.173 ng/mL 0.000-0.045 Negative: <=0.045 Positive: >=0.046 Correlation with serial results, other cardiac markers andclinical findings is necessary to determine the clinicalsignificance of this result. Results using different methodologies should not be comparedto one another as quantitative results may vary by method. [id number] 17:35:00* Test Item Value Reference Range Comments GLUBED (test code=GLUBED) 182 MG/DL 70-110 Performed by certified turbogenerator operator at [facility] - US RETROPERITONEAL [id number] 14:26:00 Name: LOREN ALMONTE [facility] : 1935 Age/S: 84 / F [address] [place] [address] Unit #: [id number] Loc: [place] [address] Phys: Kenny Alexander MD Acct: [id number] Dis Date: Status: ADM IN PHONE #: [phone] Exam Date: 05/26/2019 1410 FAX #: [phone] Reason: elevated creat EXAMS: CPT CODE: [id number] US RETROPERITONEAL COM 42600 Procedure: Renal Ultrasound. Clinical Indication: Elevated creatinine. Comparison: None. TECHNIQUE: Multiple longitudinal and transverse real time sonographic images of the kidneys and urinary bladder are obtained. FINDINGS: The study is somewhat limited secondary to patient body habitus. KIDNEYS: The right kidney measures 8.4 cm. The left kidney measures 9.4 cm. The kidneys are somewhat atrophic. There is moderate right hydronephrosis. No renal mass or nephrolithiasis is identified. BLADDER: Scanning through the pelvis reveals the bladder to be partially distended with anechoic urine. Bilateral ureteral jets are noted. The visualized portions of the abdominal aorta, IVC and proximal common iliac arteries are within normal limits. IMPRESSION: 1. Atrophic kidneys. 2. Moderate right hydronephrosis. SL: OCO-H at 9136 Reported and signed by: Ash Cedillo M.D. PAGE 1 Signed Report (CONTINUED) Name: LOREN HOLT [facility] : 1935 Age/S: 84 / F [address] [place] [address] Blvd Unit #: [id number] Lo [place]: [place] [address] Phys: Kenny Alexander MD Acct: [id number] Dis Date: Status: ADM IN PHONE #: [phone] Exam Date: 05/26/2019 1410 FAX #: [phone] Reason: elevated creat EXAMS: CPT CODE: [id number] [facility] [address] <Continued> CC: Kenny Alexander MD; Wilber Bell MD; Henry Campoverde MD Technologist: Afia Russ RDMS(AB)(OB) Trnscb Date/Time: 05/26/2019 (1425) t.SDR.TDO Orig Print D/T: S: 05/26/2019 (632) Probe: PAGE 2 Signed Report [id number] 10:44:00* Test Item Value Reference Range Comments GLUBED (test code=GLUBED) 122 MG/DL 70-110 Performed by certified turbogenerator operator at [facility] [id number] 07:47:00* Test Item Value Reference Range Comments TROPONIN-I (test code=TROPI) 0.091 ng/mL 0.000-0.045 Negative: <=0.045 Positive: >=0.046 Correlation with serial results, other cardiac markers andclinical findings is necessary to determine the clinicalsignificance of this result. Results using different methodologies should not be comparedto one another as quantitative results may vary by method. COMMENTS: 3 troponins total (including troponin done in ED)[id number] 06:28:00* Test Item Value Reference Range Comments GLUBED (test code=GLUBED) 81 MG/DL 70-110 Performed by certified turbogenerator operator at [facility] [id number] 03:54:00* Test Item Value Reference Range Comments TROPONIN-I (test code=TROPI) 0.084 ng/mL 0.000-0.045 Negative: <=0.045 Positive: >=0.046 Correlation with serial results, other cardiac markers andclinical findings is necessary to determine the clinicalsignificance of this result. Results using different methodologies should not be comparedto one another as quantitative results may vary by method. COMMENTS: 3 troponins total (including troponin done in ED)LIPOPROTEIN LDL 2019-05-26 00:31:00* Test Item Value Reference Range Comments LIPOPROTEIN LDL (test code=LDL) 92 mg/dL 0-100 <100 [id number] NEAR OPTIMAL/ABOVE [id number] HIGH>JI=077 VERY HIGH*Guidelines provided by the National Cholesterol EducationProgram Adult Treatment Panel III - XR CHEST 1 [id number] 00:13:00 FAX: Raza Wright DO [phone] [place]: St: [facility] FAX: Wilber Harmon MD [phone] Name: LOREN ALMONTE [facility] : 1935 Age/S: 84/F [address] [place] [address] Unit #: [id number] Loc: [address] [address] Phys: Raza Mares DO Acct: [id number] Dis Date: Status: REG ER PHONE #: [phone] Exam Date: 05/25/2019 0002 FAX #: [phone] Reason: Chest Pain EXAMS: CPT CODE: [id number] XR CHEST 1 V 18540 Study: - XR CHEST 1 V 05/25/2019 11:35 PM Patient Name: LOREN ALMONTE MR: [id number] : 1935; Age: 84 years y/o Female Ordering Physician: Raza Mares DO Clinical Indication: Chest Pain Comparison: 04/01/2016 FINDINGS LUNGS: Hypoinflation associated with interval patchy right lower lobe opacity suspicious for pneumonia or asymmetrical pulmonary edema. Mild central pulmonary vascular congestion is otherwise present. Minimal left pleural effusion or pleural thickening and mild left basilar subsegmental atelectasis. No pneumothorax. HEART AND MEDIASTINUM: Stable mild cardiomegaly. LINES: None. OSSEOUS STRUCTURES: No fracture, dislocation, or suspicious focal osseous lesion. OTHER: None. IMPRESSION: Stable mild cardiomegaly with interval mild central pulmonary vascular congestion. Interval patchy right lower lobe opacity suspicious for pneum onia versus asymmetrical pulmonary edema. SL: TPAINTER-H PAGE 1 Signed Report (CONTINUED) FAX: Raza Wright DO [phone] [place]: [address]: REG FAX: iWlber Harmon MD [phone] Name: LOREN ECHEVARRIA [facility] : 1935 Age/S: 84/F [address] [place] [address] Unit #: [id number] L oc: GMaria [address] [address] Phys: Raza Mares DO Acct: [id number] Dis Date: Status: REG ER PHONE #: [phone] Exam Date: 05/25/2019 0002 FAX #: [phone] Re ason: Chest Pain EXAMS: CPT CODE: [id number] XR CHEST 1 V 09179 <Continued> at 0013 Reported and signed by: Uriel Orellana M.D. CC: Raza Mares DO; Wilber Bell MD Technologist: Vane Bucio RT(R) Trnscrd Date/Time/By: 05/26/2019 (0013) : By: [id number] Orig Print D/T: S: 05/26/2019 (16) PAGE 2 Signed Report B-TYPE NATRIURETIC PEPTIDE 2019-05-26 00:12:00* Test Item Value Reference Range Comments B-TYPE NATRIURETIC PEPTIDE (test code=BNP) 453.0 PG/ML 0-100 BASIC METABOLIC [id number] 00:09:00* Test Item Value Reference Range Comments SODIUM (test code=NA) 140 mEq/L 134-147 POTASSIUM (test code=K) 4.2 mEq/L 3.4-5.0 CHLORIDE (test code=CL) 109 mEq/L 100-108 CARBON DIOXIDE (test code=CO2) 24 mEq/L 21-33 ANION GAP (test code=GAP) 11 0-20 GLUCOSE (test code=GLU) 218 mg/dL 70-110 BLOOD UREA NITROGEN (test code=BUN) 38 mg/dL 7-18 GLOMERULAR FILTRATION RATE (test code=GFR) 16.8 70-80 Units of measure=ml/min/1.73 m2 CREATININE (test code=CREAT) 2.7 mg/dL 0.6-1.3 CALCIUM (test code=CA) 8.3 mg/dL 8.0-10.5 [id number] 00:09:00* Test Item Value Reference Range Comments TROPONIN-I (test code=TROPI) 0.049 ng/mL 0.000-0.045 Negative: <=0.045 Positive: >=0.046 Correlation with serial results, other cardiac markers andclinical findings is necessary to determine the clinicalsignificance of this result. Results using different methodologies should not be comparedto one another as quantitative results may vary by method. PROTHROMBIN [id number] 00:03:00* Test Item Value Reference Range Comments PROTHROMBIN TIME PATIENT (test code=PTP) 11.3 SECONDS 9.3-12.9 INTERNATIONAL NORMAL RATIO (test code=INR) 1.0 0.8-1.2 TARGET INR BY INDICATION Indication INR1. Prophylaxis of venous thrombosis 2.0 - 3.0 (orthopedic surgery), Prophylaxis of venous thrombosis (other than high-risk surgery), Treatment of Deep Vein Thrombosis/Pulmonary Embolism, Prevention of systemic embolism - Tissue heart valves, Acute Myocardial Infarction (to prevent systemic embolism), Valvular heart disease, Atrial Fibrillation, Bileaflet mechanical valve in aortic position.2. Mechanical prosthetic valves (high risk), 2.5 - 3.5 Presence of Lupus Anticoagulant or Antiphospholipid Antibodies, Prevention of systemic embolism - Acute Myocardial Infarction (to prevent recurrent infarct). CBC W/AUTO [id number] 23:47:00* Test Item Value Reference Range Comments WHITE BLOOD CELL (test code=WBC) 7.08 x10 3/uL 4.5-11.0 RED BLOOD CELL (test code=RBC) 3.55 x10 6/uL 3.54-5.02 HEMOGLOBIN (test code=HGB) 10.0 g/dL 11.0-15.0 HEMATOCRIT (test code=HCT) 31.5 % 33.0-45.0 MEAN CELL VOLUME (test code=MCV) 88.7 fL 81.0-99.0 MEAN CELL HGB (test code=MCH) 28.2 pg 27.0-33.0 MEAN CELL HGB CONCETRATION (test code=MCHC) 31.7 g/dL 33.0-37.0 RED CELL DISTRIBUTION WIDTH CV (test code=RDW) 13.0 % 11.5-14.5 RED CELL DISTRIBUTION WIDTH SD (test code=RDW-SD) 42.3 fL 37.0-54.0 PLATELET COUNT (test code=PLT) 193 x10 3/uL 150-400 MEAN PLATELET VOLUME (test code=MPV) 10.0 fL 7.0-9.0 NEUTROPHIL % (test code=NT%) 57.4 % 56.0-77.0 IMMATURE GRANULOCYTE % (test code=IG%) 0.1 % 0.0-2.0 LYMPHOCYTE % (test code=LY%) 21.5 % 14.0-32.0 MONOCYTE % (test code=MO%) 7.6 % 4.8-9.0 EOSINOPHIL % (test code=EO%) 12.7 % 0.3-3.7 BASOPHIL % (test code=BA%) 0.7 % 0.0-2.0 NUCLEATED RBC % (test code=NRBC%) 0.0 % 0-0 NEUTROPHIL # (test code=NT#) 4.06 x10 3/uL 2.0-7.6 IMMATURE GRANULOCYTE # (test code=IG#) 0.01 x10 3/uL 0.00-0.03 LYMPHOCYTE # (test code=LY#) 1.52 x10 3/uL 1.0-3.8 MONOCYTE # (test code=MO#) 0.54 x10 3/uL 0.1-0.8 EOSINOPHIL # (test code=EO#) 0.90 x10 3/uL 0.0-0.2 BASOPHIL # (test code=BA#) 0.05 x10 3/uL 0.0-0.2 NUCLEATED RBC # (test code=NRBC#) 0.00 x10 3/uL 0.0-0.1 MANUAL DIFF REQUIRED (test code=MDIFF) NO TROPONIN-I [id number] 23:46:00* Test Item Value Reference Range Comments TROPONIN-I RAPID (test code=TROPIRAP) 0.00 ng/mL 0.00-0.08 Performed by certified turbogenerator operator at [facility] Negative: <=0.08 Positive: >=0.09An elevated troponin value alone is not sufficient todiagnose a myocardial infarction. Rather, the patient sclinical presentation (history, physical exam) and ECGshould be used in conjunction with troponin in thediagnostic evaluation of suspected myocardial infarction. Aserial sampling protocol is recommended to facilitate the identification of temporal changes in troponin levels characteristic of CT. - XR KNEE 3 V [id number] 12:40:00 Name: LOREN AMLONTE [facility] : 1935 Age/S:83 /F [address] [facility] Unit#:[id number] Loc: [place] [address] Phys: Dawn Rico [employer] Dis Date: PHONE #: [phone] Status: REG FAX #: [phone] Exam Date: 11/14/2018 Reason: left medial knee pain, twist, felt a pop EXAMS: CPT CODE: [id number] XR KNEE 3 V LT [address] HISTORY: Pain and swelling. COMPARISON: None available. 3 views of the left knee: No acute fracture or dislocation. Mild tricompartment joint space narrowing. Chondrocalcinosis. Vascular calcifications. Moderate suprapatellar joint fluid. Vascular calcifications. Mild osteopenia. IMPRESSION: Moderate suprapatellar joint fluid. No acute fracture or dislocation. Tricompartment joint space narrowing and marginal osteoph yte suggesting mild osteoarthritis. at 1240 Reported and si gned by: Federico Salazar M.D. CC: Wilber Bell MD Technologist: Catrachita Melvin RT(R)(CT) Trnscrpt Data: 11/14/2018 (5730) Price.TH4 Orig Print D/T: S: 11/14/2018 (9659) PAGE 1 Signed Report
[2019-06-16 16:48] LABS: BASOPHILS # (AUTO) 0.1 (0.0-0.1); BASOPHILS % 0.7 % (0.0-1.0); EOSINOPHILS # (AUTO) 0.1 (0.0-0.4); EOSINOPHILS % 1.6 % (0.0-6.0); HEMATOCRIT 29.5 % (34.2-44.1); HEMOGLOBIN 9.6 g/dL (12.0-16.0); LYMPHOCYTES # (AUTO) 0.7 (1.0-3.2); MEAN CORPUSCULAR HEMOGLOBIN 27.9 pg (28-32); MEAN CORPUSCULAR HGB CONC 32.5 g/dL (31-35); MEAN CORPUSCULAR VOLUME 85.8 fL (81-99); MONOCYTES # (AUTO) 0.6 (0.2-0.8); MONOCYTES % 8.9 % (4.4-11.3); NEUTROPHILS # (AUTO) 5.3 (2.1-6.9); NEUTROPHILS % 78.1 % (38.7-80.0); PLATELET COUNT 288 x10e3/uL (140-360); RED BLOOD COUNT 3.44 x10e6/uL (3.6-5.1); RED CELL DISTRIBUTION WIDTH 13.1 % (11.7-14.4)
[2019-06-16 16:52] LABS: INR 0.96; PROTHROMBIN TIME 13.4 seconds (11.9-14.5)
[2019-06-16 17:03] LABS: ALBUMIN 3.4 g/dL (3.5-5.0); ALBUMIN/GLOBULIN RATIO 0.9 (0.8-2.0); ANION GAP 16.3 mmol/L (8-16); CALCIUM 9.2 mg/dL (8.4-10.2); CREATININE, SERUM 4.03 mg/dL (0.57-1.11); MAGNESIUM 1.9 MG/DL (1.3-2.1); POTASSIUM 4.3 mmol/L (3.5-5.1)
--- NOTE | 2019-06-16 17:14 | Diagnostic Imaging Report ---
EXAMINATION: CHEST SINGLE (PORTABLE) INDICATION: ^SOB, ? CHF ^[id number] ^1640 COMPARISON: None FINDINGS: AP view TUBES and LINES: None. LUNGS: Lungs are well inflated. Bilateral pulmonary edema. More confluent consolidation in the right middle/right lower lobe. PLEURA: Possible trace bilateral pleural effusions. No pneumothorax. HEART AND MEDIASTINUM: Moderate enlargement of the cardiac silhouette. BONES AND SOFT TISSUES: No acute osseous lesion. Soft tissues are unremarkable. UPPER ABDOMEN: No free air under the diaphragm. IMPRESSION: Bilateral pulmonary edema. More confluent consolidation in the right middle/lower lobes may reflect superimposed pneumonia. Signed by: Dr. Matilde Cardona M.D. on 06/16/2019 5:11 PM
[2019-06-16] MEDS ORDERED: AZITHROMYCIN 500MG/NS 250 ML 250 ML IV SCH (17:15)
[2019-06-16] MEDS: CEFTRIAXONE SOD 1 GM/NS 50 ML 50 ML IV SCH (17:26)
[2019-06-16] MEDS: AZITHROMYCIN 500MG/NS 250 ML 250 ML IV SCH (17:37)
[2019-06-16 17:42] LABS: BILIRUBIN,URINE NEGATIVE (NEGATIVE); CLARITY,URINE HAZY (CLEAR); COLOR,URINE YELLOW (YELLOW); KETONES,URINE NEGATIVE (NEGATIVE); LEUKOCYTE ESTERASE ,URINE SMALL (NEGATIVE); NITRITE,URINE NEGATIVE (NEGATIVE); PROTEIN,URINE DIPSTICK >=300 (NEGATIVE); URINE UROBILINOGEN 0.2 mg/dL (0.2 - 1)
[2019-06-16 17:44] LABS: BACTERIA,URINE FEW /HPF; EPITHELIAL CELLS,URINE FEW /LPF; WBC,URINE (MAN) 21-50 /HPF (0-5)
[2019-06-16 17:45] LABS: HYALINE CASTS 0-1 (0-1); MUCUS,URINE FEW (RARE); YEAST,URINE FEW
[2019-06-16] MEDS ORDERED: FUROSEMIDE INJ 10 MG/ML 4 ML VIAL IV ONE (17:45)
[2019-06-16] MEDS ORDERED: HEPARIN 25,000 UNIT 800 UNIT in DEXTROSE 5% 250ML 250 ML IV SCH (18:00)
[2019-06-16] MEDS ORDERED: DEXTROSE 50% SYRINGE 50 ML IV PRN (18:00)
[2019-06-16] MEDS ORDERED: HEPARIN SOD (PORCINE) 5,000 UNIT/ML VIAL IV ONE (18:00)
[2019-06-16 21:00] VITALS: BP 117/63
--- NOTE | 2019-06-16 21:00 | NUR ---
PATIENT RECEIVED FROM ER. PATIENT IS AAOX3. ORIENTED TO ROOM. HEPARIN DRIP AT 862 UNIT/HR. TELE IN PLACE. CALL LIGHT WITH IN EASY REACH. BED IS LOW AND LOCKED. SIDE RAILS X2. INSTRUCTED PT TO USE CALL LIGHT FOR ALL THE NEEDS.
[2019-06-16 21:26] VITALS: BP 133/71
[2019-06-16 21:28] VITALS: BP 133/71
--- NOTE | 2019-06-16 21:31 | NUR ---
SPOKE TO DR ABAD ABOUT CONSULT. WILL SEE PATIENT IN AM
--- NOTE | 2019-06-16 22:05 | NUR ---
SPOKE TO DR TAYLOR ABOUT PATIENT'S STATUS. NEW ORDER RECEIVED.
[2019-06-16] MEDS: INSULIN LISPRO 100 UNIT/1 ML 3ML VIAL SQ SCH (22:10)
[2019-06-16] MEDS ORDERED: ASPIR 8181 MG PO (22:13)
[2019-06-16] MEDS ORDERED: FERROUS SULFAT325 MG PO (22:13)
[2019-06-16] MEDS ORDERED: PANTOPRAZOLE SO40 MG PO (22:13)
[2019-06-16] MEDS ORDERED: TRAMADOL/APAP 37.5MG-325MG TAB PO SCH (22:15)
[2019-06-16] MEDS: FUROSEMIDE INJ 10 MG/ML 4 ML VIAL IV SCH (22:15)
[2019-06-16] MEDS: TICAGRELOR 90 MG TABLET PO SCH (22:41)
[2019-06-16] MEDS ORDERED: TRAMADOL HCL 50 MG TAB PO PRN (22:45)
[2019-06-17] VITALS (8 sets, daily range): BP systolic 117–144; BP diastolic 57–66
--- NOTE | 2019-06-17 01:00 | NUR ---
PTT IS THERAPEUTIC 67.9. NO RATE CHANGE AT THIS TIME. HEPARIN DRIP IS AT 862 UNIT/HR AT THIS TIME. PTT IN 6 HRS PER MD ORDER.
[2019-06-17 02:52] LABS: CREATINE KINASE MB 1.3 ng/mL (0-5.0)
[2019-06-17 06:37] LABS: BASOPHILS # (AUTO) 0.1 (0.0-0.1); EOSINOPHILS # (AUTO) 0.5 (0.0-0.4); EOSINOPHILS % 8.5 % (0.0-6.0); HEMATOCRIT 24.4 % (34.2-44.1); HEMOGLOBIN 7.9 g/dL (12.0-16.0); LYMPHOCYTES # (AUTO) 1.3 (1.0-3.2); LYMPHOCYTES % 20.9 % (18.0-39.1); MEAN CORPUSCULAR HEMOGLOBIN 28.1 pg (28-32); MEAN CORPUSCULAR HGB CONC 32.4 g/dL (31-35); MEAN CORPUSCULAR VOLUME 86.8 fL (81-99); MONOCYTES # (AUTO) 0.7 (0.2-0.8); MONOCYTES % 11.9 % (4.4-11.3); NEUTROPHILS # (AUTO) 3.4 (2.1-6.9); NEUTROPHILS % 57.2 % (38.7-80.0); PLATELET COUNT 237 x10e3/uL (140-360); RED BLOOD COUNT 2.81 x10e6/uL (3.6-5.1); RED CELL DISTRIBUTION WIDTH 13.2 % (11.7-14.4)
--- NOTE | 2019-06-17 06:57 | NUR ---
PTT 86.5 AT THIS TIME. DECREASE 100 UNIT/HR PER PROTOCOL. HEPARIN DRIP IS AT 762 UNIT AT THIS TIME. PTT IN 6HRS
[2019-06-17 07:12] LABS: ALBUMIN 2.7 g/dL (3.5-5.0); ALBUMIN/GLOBULIN RATIO 0.8 (0.8-2.0); ANION GAP 12.9 mmol/L (8-16); CALCIUM 8.2 mg/dL (8.4-10.2); CREATININE, SERUM 3.78 mg/dL (0.57-1.11); POTASSIUM 3.9 mmol/L (3.5-5.1)
[2019-06-17 07:30] LABS: CREATINE KINASE MB 1.2 ng/mL (0-5.0)
[2019-06-17] MEDS: FUROSEMIDE INJ 10 MG/ML 4 ML VIAL IV SCH ×2 (08:50→21:45)
[2019-06-17] MEDS: AMLODIPINE BESYLATE 5 MG TAB PO SCH (08:50)
[2019-06-17] MEDS: ATORVASTATIN 20 MG TAB PO SCH (08:50)
[2019-06-17] MEDS: PANTOPRAZOLE SOD 40 MG TABEC PO SCH (08:50)
[2019-06-17] MEDS: CARVEDILOL 12.5 MG TAB PO SCH ×2 (08:50→17:24)
[2019-06-17] MEDS: FERROUS SULFATE 325 MG TAB PO SCH ×2 (08:50→17:24)
[2019-06-17] MEDS: ASPIRIN 81 MG CHEW TAB PO SCH (08:50)
[2019-06-17] MEDS: INSULIN LISPRO 100 UNIT/1 ML 3ML VIAL SQ SCH ×4 (08:52→21:45)
--- NOTE | 2019-06-17 12:45 | NUR ---
PTT is 47.6 Heparin drip increased by 100 units per hour. Rate is now 862 units per hour 86 ml/hr
[2019-06-17] MEDS ORDERED: ONDANSETRON HCL INJ 2MG/ML 2ML 2 MG/ML VIAL IV PRN (15:00)
[2019-06-17] MEDS ORDERED: ACETAMINOPHEN 325 MG TAB PO PRN (15:00)
[2019-06-17] MEDS ORDERED: SODIUM CHLORIDE 0.9% 250ML 250 ML ONE (17:06)
[2019-06-17] MEDS: CEFTRIAXONE SOD 1 GM/NS 50 ML 50 ML IV SCH (17:24)
[2019-06-17] MEDS: AZITHROMYCIN 500MG/NS 250 ML 250 ML IV SCH (18:56)
--- NOTE | 2019-06-17 20:32 | History and Physical ---
CHIEF COMPLAINT: Shortness of breath. HISTORY OF PRESENT ILLNESS: This is an 84-year-old female, very poor historian, reportedly comes into the ED with complaints of underlying shortness of breath. The patient reports she has a history of chronic kidney disease, but she does not know her baseline creatinine or the stage of her renal function. She originally was admitted at [facility] complaining of shortness of breath, had an NSTEMI, she underwent a left heart catheterization and had some stents placed at that time. She was discharged and then came into our facility two days later on 06/16/2019. The patient was admitted for further evaluation and management. Cardiology was consulted. She was started initially on heparin drip and now currently been discontinued as the patient had recent stent placement. She has been given some IV diuretics with much improvement. The patient was stable during my evaluation. REVIEW OF SYSTEMS: Pertinent positives shortness of breath, lower extremity edema. The rest of the 14-point review of systems are reviewed with the patient and are negative. ALLERGIES: NO KNOWN DRUG ALLERGIES. HOME MEDICATIONS: Amlodipine, aspirin, atorvastatin, Coreg, iron tablets, Protonix, tramadol with acetaminophen. PAST MEDICAL HISTORY: She has recent left heart catheterization with stent placement, CAD, hypertension, hyperlipidemia, and questionable pneumonia. PAST SURGICAL HISTORY: Left heart catheterization performed a few days ago with stent placement, unknown location. FAMILY HISTORY: Hypertension and diabetes. SOCIAL HISTORY: No drugs, no alcohol, does not smoke. Good social support. PHYSICAL EXAMINATION: VITAL SIGNS: Temperature is 97.3, pulse 67, respirations 20, blood pressure is 127/57, pulse ox 98% on room air. GENERAL: Not in acute distress. Alert, oriented x3. Cooperative on examination. HEENT: Head normocephalic, atraumatic. Eyes; pupils are reactive to light bilaterally. Extraocular motions intact bilaterally. NECK: Supple. Good range of motion. Throat, no evidence of erythema or exudates in the posterior pharynx. Has poor dentition. PULMONARY: Clear to auscultation bilaterally. No wheezing, rales, or rhonchi. No crackles appreciated. CARDIOVASCULAR: Positive S1 and S2. No murmurs, rubs, or gallops appreciated. ABDOMEN: Soft, nondistended, nontender to palpation. Bowel sounds present. MUSCULOSKELETAL: Strength is 5/5 throughout. No evidence of muscle deficits on examination. No weakness appreciated. NEUROLOGIC: Cranial nerves 2 through 12 grossly intact. No evidence of any neurological deficits on exam. SKIN: Intact. Warm to touch. Good cap refill. PSYCHIATRIC: Normal affect and mood. EXTREMITIES: No edema. Good range of motion throughout. LABORATORY DATA: White count is 5.9, hemoglobin 7.9, hematocrit 24, platelets of 237,000. Coagulation; PT 13, INR 0.96, PTT 33. Chemistry; sodium 132, potassium 3.9, chloride 93, bicarb 30, anion gap of 12, BUN 69, creatinine 3.78, and calcium is 8.2, point of good care glucose is 157. Total bilirubin was 0.3, AST 17, ALT 15, alkaline phosphatase 90. Troponins were elevated to 1.452. Total protein 6.8, albumin 2.7. Urinalysis negative. Urine cultures pending. Blood cultures, no growth today. IMAGING STUDIES: Chest x-ray shows bilateral pulmonary edema. More confluent consolidation in the right middle lobe and lower lobes may reflect superimposed pneumonia. IMPRESSION: 1. Acute exacerbation of CHF unknown dysfunction. 2. NSTEMI with recent left heart catheterization with stent placement earlier this week. 3. Hypertension. 4. Probable community-acquired pneumonia. 5. Hyperlipidemia. 6. CKD stage 5. PLAN: At this time it is likely that her troponin elevation is due to recent NSTEMI and she recently had stents placed a few days ago. She was on a heparin drip now discontinued by Cardiology. The patient will maintain on cardioprotective medications, anti-platelet therapy including aspirin and Brilinta. No MARIPOSA inhibitor due to renal dysfunction. We are going to resume same home medications, same antihypertensive medications. Blood cultures are pending. IV antibiotics initiated. She is on insulin sliding scale with Accu-Cheks. Get an A1c in the morning, lipid panel. It seems like we will continue with IV diuretics. She is on heparin for DVT prophylaxis. Renal diet. Svp Chief Marketing Officer is Cardiology. MD ADAN Astorga/MODL /[id number]
[2019-06-17] MEDS: TICAGRELOR 90 MG TABLET PO SCH (21:45)
[2019-06-17] MEDS: HEPARIN SOD (PORCINE) 5,000 UNIT/ML VIAL SC SCH (21:45)
[2019-06-18] VITALS (17 sets, daily range): BP systolic 63–139; BP diastolic 38–80
--- NOTE | 2019-06-18 01:59 | Consultation ---
DATE OF CONSULTATION: 06/17/2019 Cardiology Consult Note REASON FOR CONSULT: Elevated troponin, shortness of breath. CHIEF COMPLAINT: Shortness of breath. HISTORY OF PRESENT ILLNESS: The patient is an 84-year-old female, history of CAD with recent non-ST elevation VA, was treated with stent placement at [facility] per the patient, has been having worsening shortness of breath, orthopnea and lower extremity edema since her discharge, was compliant with her aspirin and ticagrelor. Denies any chest pain, fevers, chills, or cough. REVIEW OF SYSTEMS: As per HPI, otherwise negative. PAST MEDICAL HISTORY: 1. Hypertension. 2. Hyperlipidemia. 3. CKD. 4. CAD, status post PCI. SOCIAL HISTORY: Does not smoke, drink, or abuse drugs. FAMILY HISTORY: Noncontributory. OUTPATIENT MEDICATIONS: Reviewed. ALLERGIES: REVIEWED. PHYSICAL EXAMINATION: VITAL SIGNS: Temperature afebrile, pulse 67, respiratory rate 18, blood pressure 131/61, and saturating 97% on 2 L nasal cannula. GENERAL: Elderly female, in no acute distress. CARDIOVASCULAR: Regular rate and rhythm. No murmurs, rubs, or gallops. LUNGS: Bibasilar rales. ABDOMEN: Soft, nontender, and nondistended. NEURO AND PSYCH: Alert and oriented to person, place, and time. Normal affect. INPATIENT MEDICATIONS: Reviewed. LABORATORY DATA: Reviewed, notable for elevated troponin of 2.3 on presentation with normal CK and CK-MB. GFR 11. BNP 1100. TELEMETRY DATA: Reviewed, shows normal sinus rhythm. ASSESSMENT AND PLAN: 1. Elevated troponin. 2. History of coronary artery disease, status post recent PCI and non-ST elevation myocardial infarction. 3. Acute systolic congestive heart failure. 4. Acute kidney injury and chronic kidney disease. PLAN: Continue IV diuretics. Elevated troponin in the setting of normal CK and CK-MB, likely just downtrending troponins from her recent VA. Do not suspect ACS at this time. Okay to discontinue heparin. Echocardiogram results are pending. Continue aspirin and Brilinta. Diurese if renal function tolerates with IV diuretics. Thank you for this consult. We will continue to follow. MD CARLA MccormackP/DOLORES /[id number]
[2019-06-18 05:18] LABS: BASOPHILS # (AUTO) 0.1 (0.0-0.1); BASOPHILS % 1.4 % (0.0-1.0); EOSINOPHILS # (AUTO) 0.6 (0.0-0.4); EOSINOPHILS % 12.5 % (0.0-6.0); HEMATOCRIT 26.3 % (34.2-44.1); HEMOGLOBIN 8.4 g/dL (12.0-16.0); MEAN CORPUSCULAR HEMOGLOBIN 27.8 pg (28-32); MEAN CORPUSCULAR HGB CONC 31.9 g/dL (31-35); MEAN CORPUSCULAR VOLUME 87.1 fL (81-99); MONOCYTES # (AUTO) 0.6 (0.2-0.8); MONOCYTES % 11.9 % (4.4-11.3); NEUTROPHILS # (AUTO) 2.7 (2.1-6.9); NEUTROPHILS % 53.8 % (38.7-80.0); PLATELET COUNT 241 x10e3/uL (140-360); RED BLOOD COUNT 3.02 x10e6/uL (3.6-5.1); RED CELL DISTRIBUTION WIDTH 13.2 % (11.7-14.4)
[2019-06-18 05:38] LABS: CALCIUM 8.5 mg/dL (8.4-10.2); CREATININE, SERUM 3.75 mg/dL (0.57-1.11)
[2019-06-18] MEDS: FUROSEMIDE INJ 10 MG/ML 4 ML VIAL IV SCH (06:18)
--- NOTE | 2019-06-18 07:07 | NUR ---
Received patient lying in bed with eyes open. Respiration even and unlabored without SOB. Call light in reach.
[2019-06-18] MEDS: INSULIN LISPRO 100 UNIT/1 ML 3ML VIAL SQ SCH ×4 (07:30→23:04)
[2019-06-18] MEDS: ASPIRIN 81 MG CHEW TAB PO SCH (08:21)
[2019-06-18] MEDS: ATORVASTATIN 20 MG TAB PO SCH (08:22)
[2019-06-18] MEDS: CARVEDILOL 12.5 MG TAB PO SCH ×2 (08:22→16:06)
[2019-06-18] MEDS: FERROUS SULFATE 325 MG TAB PO SCH (08:22)
[2019-06-18] MEDS: PANTOPRAZOLE SOD 40 MG TABEC PO SCH (08:22)
[2019-06-18] MEDS: TICAGRELOR 90 MG TABLET PO SCH ×2 (08:58→22:44)
[2019-06-18] MEDS: AMLODIPINE BESYLATE 5 MG TAB PO SCH (09:00)
[2019-06-18] MEDS: HEPARIN SOD (PORCINE) 5,000 UNIT/ML VIAL SC SCH (09:00)
--- NOTE | 2019-06-18 10:02 | Diagnostic Imaging Report ---
EXAMINATION: CHEST SINGLE (PORTABLE) INDICATION: Shortness of breath COMPARISON: Chest radiograph of 06/16/2019 FINDINGS: LINES/TUBES:EKG leads overlie the chest. LUNGS:The lungs are moderately inflated. Unchanged right lower lung opacity. There is perihilar fullness and indistinctness of the pulmonary vasculature. PLEURA:No pleural effusion or pneumothorax. MEDIASTINUM:The cardiomediastinal silhouette appears unchanged in size and shape. Atherosclerotic calcifications of the thoracic aorta. BONES/SOFT TISSUES:No acute osseous injury. ABDOMEN:No free air under the diaphragm. IMPRESSION: No significant interval change. Signed by: Radha Snyder MD on 06/18/2019 9:59 AM
--- NOTE | 2019-06-18 10:55 | NUR ---
Pt. expressed no spiritual or emotional concerns at this time. Pt expressed appreciation for visit. Production Cor[employer]ator provided hospitality and information on how to reach last marker, if needed. CHRISTA QUINTEROS [employer] Spiritual Care Department O: [phone]
--- NOTE | 2019-06-18 13:21 | Progress Note ---
DATE: Cardiology Progress Note SUBJECTIVE: The patient is feeling better. Denies any chest pain or shortness of breath. OBJECTIVE: VITAL SIGNS: Temperature is 97, heart rate 63, respirations are 14, blood pressure is 115/58, ox saturation is 99% on 2 L nasal cannula. GENERAL: Well appearing, no apparent distress. CARDIOVASCULAR: Regular rate and rhythm. LUNGS: Diminished breath sounds at the bases. ABDOMEN: Soft, nontender, nondistended. EXTREMITIES: Trace edema. CARDIOVASCULAR MEDICATIONS: Reviewed. Include amlodipine, carvedilol, atorvastatin, and aspirin. LABORATORY DATA: Reviewed. Creatinine elevated at 3.75, potassium is 4. TELEMETRY: Monitoring revealed normal sinus rhythm. 2D echocardiogram showed left ventricular ejection fraction of 65% with impaired relaxation. IMPRESSION: 1. Elevated troponin. 2. History of coronary artery disease status post recent percutaneous coronary intervention and [id number]-[id number]-[id number] myocardial. 3. Acute on chronic diastolic heart failure. 4. Acute on chronic kidney disease. RECOMMENDATIONS: Continue diuretics. Monitor I's and O's and creatinine. Her troponin is down trending from her recent DC. She has no chest pain. ACS is not suspected. We will need to resume clopidogrel. Continue aspirin, statin and beta blockers. Echocardiogram showed diastolic dysfunction and normal LVEF. DO DOREEN Sanon/MODL /[id number]
[2019-06-18] MEDS ORDERED: CLOPIDOGREL BISULFATE 75 MG TAB PO SCH (13:45)
[2019-06-18 13:53] LABS: HEMOGLOBIN 7.8 g/dL (12.0-16.0)
[2019-06-18] MEDS ORDERED: SODIUM CHLORIDE 0.9% 250ML 250 ML IV ONE ×2 (15:00→20:15)
--- NOTE | 2019-06-18 15:18 | NUR ---
Patient is to transfer to ICU Report given to NGUYEN Celestin. Notified daughter .
--- NOTE | 2019-06-18 15:20 | NUR ---
Transported patient via stretcher with all personal belongings taken. Respiration even and unlabored without SOB. Call light in reach. Left message to Dr. Dawn answering service.
--- NOTE | 2019-06-18 15:29 | NUR ---
Nutrition Screen Note RD Recommendation for Physician: - Recommend adding Cardiac diet restrictions to current ADA diet Plan of Care: RD following, monitoring for tolerance and adequacy Nutrition reason for involvement: DX: CHF Primary Diagnose(s): CHF, CKD, NSTEMI, Pneumonia, UTI PMH: L hearth catheterization with stent placement s/p recent NSTEMI, CAD, HTN, HLD Ht: 58 in Wt: 158 lb BMI: 33 kg/m2 IBW: [address] Assessment: (06/17) 84 YOF admitted for CHF, CKD, NSTEMI, and PNA. Pt evaluated today per admit dx for CHF. Attempted to see pt x 3, out of room, in bathroom, and medical provider at bedside at time of visit. Pt poor historian per chart MD notes, unable to obtain hx at this time. Pt with 100% meal intake since admit. No reported wt loss on admit MD notes. No N/V/C/D documented, LBM 06/16. Skin intact. Chart reviewed. Labs and meds reviewed. Will continue to monitor. Current Diet: ADA Malnutrition Evaluation (06/18/19) The patient does not meet criteria for a specified degree of malnutrition at this time. Will re-evaluate at follow-up as appropriate. Unable to complete assessment. Diet Education Needs Assessment: Diet education indicated, pt not appropriate at this time. Diet tolerance: tolerating po Nutrition Care Level: low Signed: Trina Kimball RD, LD, [facility]
--- NOTE | 2019-06-18 16:38 | NUR ---
GASTROENTEROLOGY CONSULT REASON FOR CONSULT: MELENA Consulting physician: DR. TAYLOR CHIEF COMPLAINT: Shortness of breath. HISTORY OF PRESENT ILLNESS: Patient an 84-year-old female presented to the ED with complaints of underlying shortness of breath. GI has been consulted for melena and dropping hgb. She originally was admitted at [facility] complaining of shortness of breath, had an NSTEMI, she underwent a left heart catheterization and had some stents placed at that time. She was discharged and then came into our facility two days later on 06/16/2019. Patient is currently in ICU, stable. Patient states she has had an EGD and colonoscopy in the past however is not a very good historian and majority of the history were taken from the charts. Patient had previously been on Aspirin and Brillinta. REVIEW OF SYSTEMS: melena, shortness of breath, lower extremity edema. The rest of the 14-point review of systems are reviewed with the patient and are negative. ALLERGIES: NO KNOWN DRUG ALLERGIES. HOME MEDICATIONS: Amlodipine, aspirin, atorvastatin, Coreg, iron tablets, Protonix, tramadol with acetaminophen. SURGICAL HISTORY: Left heart catheterization PAST MEDICAL HISTORY: She has recent left heart catheterization with stent placement, CAD, hypertension, hyperlipidemia, and questionable pneumonia. FAMILY HISTORY: Hypertension and diabetes. SOCIAL HISTORY: denies any drinking or smoking PHYSICAL EXAMINATION: VITAL SIGNS: SEE CHART GENERAL: Not in acute distress. Alert, oriented x3. HEENT: Head normocephalic, atraumatic. Eyes; pupils are reactive to light bilaterally. Extraocular motions intact bilaterally. NECK: Supple. Has poor dentition. PULMONARY: Clear to auscultation bilaterally. CARDIOVASCULAR: No murmurs, rubs, or gallops appreciated. ABDOMEN: Soft, nondistended, nontender to palpation. Bowel sounds present. NEUROLOGIC: Cranial nerves 2 through 12 grossly intact. No evidence of any neurological deficits on exam. SKIN: Intact. Warm to touch. PSYCHIATRIC: Normal affect and mood. EXTREMITIES: No edema. Good range of motion throughout. LABORATORY DATA: White count is 5.9, hemoglobin 8.4, hematocrit 24, platelets of 237,000. Coagulation; PT 13, INR 0.96, PTT 33. Chemistry; sodium 132, potassium 4.0, Total bilirubin was 0.3, AST 17, ALT 15, alkaline phosphatase 90. IMAGING STUDIES: Chest x-ray shows bilateral pulmonary edema. ASSESSMENT 1. Melena, witnessed - r/o Upper GI bleed 2. Acute anemia, likely from blood loss 3. History of CAD and recent anticoagulant use. PLAN: - Plan for an EGD tomorrow w/Dr. Dawn. - Consent ordered. NPO after midnight - Monitor H/H closely. Transfuse if <7 - Continue Protonix - Hold ASA and Brillinta discussed the above plan w/Dr. Dawn
[2019-06-18] MEDS: AZITHROMYCIN 500MG/NS 250 ML 250 ML IV SCH (16:53)
[2019-06-18] MEDS: PANTOPRAZOL 40MG/SOD CHL 0.9% 50 ML IV SCH ×2 (16:53→22:46)
[2019-06-18] MEDS: CEFTRIAXONE SOD 1 GM/NS 50 ML 50 ML IV SCH (16:53)
[2019-06-18] MEDS ORDERED: PANTOPRAZOLE 40 MG 10ML VIAL IV SCH (17:00)
[2019-06-18 19:02] LABS: HEMOGLOBIN 5.6 g/dL (12.0-16.0)
[2019-06-18 19:03] LABS: HEMATOCRIT 17.6 % (34.2-44.1)
[2019-06-18] MEDS ORDERED: SODIUM CHLORIDE 0.9% 1000ML 1,000 ML ONE (19:57)
[2019-06-18] MEDS ORDERED: ALBUMIN 25% 25GM 100ML 0.25 GM/ML BTL IV ONE (20:15)
[2019-06-18] MEDS ORDERED: ALBUMIN 25% 12.5GM 50ML 50 ML IV ONE ×2 (20:16→20:18)
[2019-06-18] MEDS ORDERED: SODIUM CHLORIDE 0.9% 250ML 250 ML ONE ×2 (20:20→23:03)
[2019-06-18] MEDS ORDERED: PHYTONADIONE 10 MG/ML AMP IV STA (20:28)
[2019-06-18] MEDS ORDERED: ALBUMIN 25% 12.5GM 50ML 200 ML IV ONE (20:30)
[2019-06-18 20:35] LABS: INR 1.19; PROTHROMBIN TIME 15.9 seconds (11.9-14.5)
[2019-06-18 20:36] LABS: PARTIAL THROMBOPLASTIN TIME 34.4 seconds (23.8-35.5)
[2019-06-18] MEDS ORDERED: PHYTONADIONE 10MG/ML 10 MG in SODIUM CHLORIDE 0.9% 100 ML IV ONE (21:00)
--- NOTE | 2019-06-18 21:28 | NUR ---
Dr. Flower notified of new consult. Dr. Diaz rounding, aware of patient condition. Dr. Diaz spoke with dtr Bev and updated her on pt condition.
[2019-06-18] MEDS ORDERED: NOREPINEPHRINE 8 MG/D5W 250 ML 250 ML IV PRN (21:30)
--- NOTE | 2019-06-18 21:54 | Diagnostic Imaging Report ---
EXAMINATION: CHEST XRAY LINE PLACEMENT INDICATION: Sepsis COMPARISON: Chest radiograph of 06/18/2019 FINDINGS: LINES/TUBES:EKG leads overlie the chest. A right IJ central line has been placed with its tip at the cavoatrial junction. LUNGS: Unchanged right lower lung opacity, likely atelectasis. There is perihilar fullness and indistinctness of the pulmonary vasculature and mild/moderate pulmonary edema. PLEURA:No pleural effusion or pneumothorax. MEDIASTINUM:The cardiomediastinal silhouette appears unchanged in size but enlarged. Atherosclerotic calcifications of the thoracic aorta. BONES/SOFT TISSUES:No acute osseous injury. ABDOMEN: No free air under the diaphragm. IMPRESSION: 1. Mild/moderate pulmonary edema. 2. Signed by: Dr. Molina San DO on 06/18/2019 9:51 PM
--- NOTE | 2019-06-18 22:02 | Diagnostic Imaging Report ---
Procedure: Right IJ central line placement. Indication: Sepsis, need of central line for pressor administration. Estimated blood loss: Minimal. Complications: No immediate. Procedure in detail: The right neck was prepped and draped in the standard sterile fashion in the bedside at the ICU. 1% lidocaine was administered into the skin for local anesthesia. Then, under continuous sonographic guidance, a 21-gauge micropuncture needle was advanced into the right internal jugular vein. A 0.018 inch wire was advanced centrally under fluoroscopic guidance. The needle was then removed and access was secured with a micropuncture sheath. A 0.035 inch Amplatz wire was then advanced through the micropuncture sheath. Dilatation with a 7 Hebrew dilator was accomplished. A 7 Hebrew Arrow triple-lumen central line was then placed. All 3 ports aspirate and flush easily. A chest x-ray was ordered and reviewed. The catheter tip was noted at the cavoatrial junction. Line is okay for immediate use. The patient tolerated the procedure well without immediate complication. Impression: 1. Successful placement of a right IJ triple-lumen central line. 2. The line is okay for immediate use. Signed by: Dr. Molina San DO on 06/18/2019 9:59 PM
--- NOTE | 2019-06-18 22:23 | Progress Note ---
DATE: 06/18/2019 Medicine Progress Note I was notified late this evening once the patient's hemoglobin level that continued to drop. Hemoglobin level now 5.6, becoming very hypotensive. The central line that was ordered this afternoon was not followed through by the nursing staff. We did notify IR stat and they came out this evening to insert a central line. Pulmonary Critical Care was consulted. Levophed has been initiated. Blood has already been ordered earlier in the day and now she is receiving blood transfusions. A stat INR, PTT have been ordered as well. Vitamin K as well as FFP have been ordered. Currently, the patient's blood pressure was 104/51, pulse is 65. She is alert, awake, and oriented on examination. She is still having some black tarry stool. Her original GI doctor has been notified and he plans on doing an EGD tomorrow morning. I also ordered a stat Pulmonary Critical Care consult as well. I spoke with the daughter, Bev Cabello, by phone with the nurse present throughout the entire conversation and I discussed overall findings throughout the day. I discussed with her that currently were in a very sticky situation due to the fact that she had recent stents placed earlier this month in her heart and that her anti-platelet therapy cannot be discontinued due to concerns of high risk of thrombosing the stents. At this time, the only option we have is to continue with anti-platelet therapy, monitor very closely, notify Cardiology. She is currently on a Protonix drip. She will be scoped tomorrow by GI via EGD to evaluate if they are able to find a bleeding source. We will continue with volume resuscitation and blood transfusions. I did discuss with her about code status. At this time, she does want her mom to be full code. She does not have MPOA nor does the patient have MPOA. She does have 3 other siblings and she will like to talk with them by phone tonight and hopefully tomorrow she can give us further management and further decision making. As of this morning, we talked to the patient before the GI bleed occurred and the patient agreed to palliative care discussion. Now her state changed and she is currently in more critical state. At this time, we will continue with full code as per family's wishes and continue with the same plan of care as described above. Nurse was present throughout the entire conversation. The patient's daughter verbalized understanding, agrees to plan of care. Also, the patient verbalized understanding, agrees to plan of care. The patient is currently getting a stat central line and Levophed will be initiated. The patient will continue with blood products throughout the night. We will give Lasix throughout the night episodically to avoid hypotension, but also to avoid volume overload as the patient has underlying CKD stage 5. We will monitor urine output, insert a Dalton. She may need hemodialysis if she continues to be at this current rate otherwise. MD ADAN Astorga/MODL /[id number]
--- NOTE | 2019-06-18 22:38 | Progress Note ---
DATE: 06/18/2019 Medicine Progress Note SUBJECTIVE: The patient was seen and evaluated today at approximately 1:45 p.m. During that evaluation, the patient was doing well, but the patient had some black tarry stool, which was concerning and which I discussed this with the nurse. The patient was then stat transferred to the ICU. During my evaluation, she was hemodynamically stable. Blood pressure was stable. She was not very pale during my evaluation. There were pictures of black tarry stool seen in the toilet. The patient reports just some light dizziness. Stat H and H with q.6 hours stat Protonix drip and also a stat central line has been ordered. PHYSICAL EXAMINATION: VITAL SIGNS: Temperature is 98, pulse 65, respiratory rate is 14, blood pressure 115/58, and pulse ox was 96% on 2 L nasal cannula. GENERAL: Not in acute distress. Alert and oriented x3. Cooperative on examination. HEENT: Head; normocephalic, atraumatic. Eyes; pupils are equal, round, and reactive to light bilaterally. Extraocular movements intact bilaterally. Throat; no evidence of erythema or exudates in the posterior pharynx. Has poor dentition. NECK: Supple. Good range of motion. PULMONARY: Clear to auscultation bilaterally. No wheezing, no rales, no rhonchi, no crackles appreciated. CARDIOVASCULAR: Positive S1 and S2. No murmurs, rubs, or gallops appreciated. ABDOMEN: Soft, nondistended, and nontender to palpation. Bowel sounds present. MUSCULOSKELETAL: Strength is 5/5 throughout. No evidence of any muscle deficits on examination. No weakness appreciated. NEUROLOGIC: Cranial nerve II through XII grossly intact. No evidence of any neurological deficits on exam. SKIN: Intact. Warm to touch. Good cap refill. PSYCHIATRIC: Normal affect and mood. EXTREMITIES: No edema. Good range of motion throughout. LABORATORY DATA: Labs show white count of 5, hemoglobin initially this morning was 8.4, then 7.8, and then began to downtrend throughout the day at 5.6, hematocrit is 26, platelets of 241. Coagulation; PT 15, INR 1.1, PTT 34. Chemistry; sodium 135, potassium 4, chloride 94, bicarbonate 29, anion gap of 16, BUN was 59, creatinine was 3.75, glucose 129, calcium 8.5. IMPRESSION: 1. Acute exacerbation of congestive heart failure with unknown dysfunction. 2. Aip-NC-[id number] myocardial infarction with recent left heart catheterization with stent placements, placed back in early of June 2019. 3. Hypertension. 4. Probable community-acquired pneumonia. 5. Hyperlipidemia. 6. Chronic kidney disease, stage 5. 7. Black tarry stool with anemia. PLAN: At this time, continue with cardioprotective medications. Continue with anti-platelet therapy due to recent heart stent placed earlier in the month. Stat transfer to the ICU. Stat Protonix drip. Stat GI consult. Stat IR consult for central line placement, q.6 hours hemoglobin levels ordered and also ordered a stat H and H at that time. Continue with all IV antibiotic therapy. Stop all antihypertensive medications. Stop the heparin. Make n.p.o. Stat transfer to the ICU. Talk to the charge nurse as well as the floor nurse. I discussed the importance of having a stat central line and which the nurse verbalized understanding to make sure this will happen later today. I spent significant critical care time on this case, more than 35 minutes. MD ADAN Astorga/DOLORES /[id number]
[2019-06-18 22:55] LABS: ANION GAP 14.9 mmol/L (8-16); CALCIUM 7.3 mg/dL (8.4-10.2); CREATININE, SERUM 3.45 mg/dL (0.57-1.11)
[2019-06-18 22:59] LABS: POTASSIUM 4.9 mmol/L (3.5-5.1)
[2019-06-18] MEDS ORDERED: FUROSEMIDE INJ 10 MG/ML 4 ML VIAL IV ONE (23:00)
[2019-06-19] VITALS (33 sets, daily range): BP systolic 74–157; BP diastolic 37–106
--- NOTE | 2019-06-19 00:32 | Consultation ---
DATE OF CONSULTATION: Pulmonary Critical Care Consultation CHIEF COMPLAINT: Hypotension and GI bleeding. HISTORY OF PRESENT ILLNESS: The patient is an 84-year-old woman. She has a history of chronic kidney disease. She recently had a left heart catheterization and stents placed at [facility]. She was discharged on the June 15. She came in to our facility two days later complaining of shortness of breath. She initially required an evaluation by Cardiology and a heparin drip. Cardiology recommended continued diuretics as well as aspirin and Brilinta. Repeat echocardiogram was ordered. This morning, she was noted to have some black tarry stools. She had some low blood pressure and required a transfer to the intensive care unit. She was started on Protonix. She has received albumin, fluids, and packed red blood cells and her blood pressure has improved. She is on Protonix and has been seen by GI. She is awaiting endoscopy tomorrow. PAST SURGICAL HISTORY: Status post catheterization with stent placement last week at [facility]. PAST MEDICAL HISTORY: 1. Hypertension. 2. Chronic renal failure, stage 3. 3. Coronary artery disease. ALLERGIES: NO KNOWN DRUG ALLERGIES. FAMILY HISTORY: Family history is significant for hypertension and diabetes. SOCIAL HISTORY: The patient is not an active smoker or an active drinker. REVIEW OF SYSTEMS: There is no history of fevers. She is not having any headache. She does not have neck pain. She did have some shortness of breath. She has not had chest pain. She has no abdominal pain. She has no nausea or vomiting. She has no leg edema. She has no focal neurological complaints. PHYSICAL EXAMINATION: VITAL SIGNS: The blood pressure is now 113/60 and the saturation is 99% on 2 L, and the pulse is 65. HEENT: No facial swelling or erythema. CARDIAC: Reveals regular rate and rhythm with a normal S1 and S2. LUNGS: Auscultation of lungs reveals clear breath sounds bilaterally. There is no wheezing. ABDOMEN: Soft and nontender. There is no rebound or guarding. EXTREMITIES: Show no leg edema or calf tenderness. There is no cyanosis or clubbing. SKIN: Shows no rashes. NEUROLOGICAL: Shows no focal abnormalities. LABORATORY DATA: The hemoglobin was 5.6 prior to receiving packed red blood cells. Her platelet count is 241. Her INR is 1.19. The BUN to creatinine ratio is 63 to 3.45 and the potassium is 4.9. Other electrolytes are within normal limits. RADIOGRAPHIC DATA: Chest x-ray shows opacity in the right lower lobe, possibly suggestive of pneumonia. IMPRESSION: 1. Zhyfs-tp-fflrfkh renal failure. 2. Anemia secondary to acute blood loss. 3. Recent myocardial infarction with stent placement. 4. Hypertension. 5. Possible pneumonia. PLAN: 1. Continue to monitor blood counts and give packed red blood cells as needed. 2. Endoscopy tomorrow. 3. Continue current cardiac regimen. 4. Continue current antibiotics. 5. Continue to monitor renal function. Miguel Flower MD [facility]/MODL /[id number]
[2019-06-19] MEDS: PANTOPRAZOL 40MG/SOD CHL 0.9% 50 ML IV SCH ×5 (02:09→21:30)
[2019-06-19] MEDS ORDERED: FUROSEMIDE INJ 10 MG/ML 4 ML VIAL IV ONE ×2 (02:15→04:45)
[2019-06-19] MEDS ORDERED: SODIUM CHLORIDE 0.9% 250ML 250 ML ONE ×3 (02:17→21:14)
[2019-06-19 06:20] LABS: BASOPHILS % 0.3 % (0.0-1.0); EOSINOPHILS # (AUTO) 0.1 (0.0-0.4); EOSINOPHILS % 2.2 % (0.0-6.0); LYMPHOCYTES # (AUTO) 0.8 (1.0-3.2); LYMPHOCYTES % 14.1 % (18.0-39.1); MEAN CORPUSCULAR HEMOGLOBIN 26.5 pg (28-32); MEAN CORPUSCULAR HGB CONC 31.8 g/dL (31-35); MEAN CORPUSCULAR VOLUME 83.3 fL (81-99); MONOCYTES # (AUTO) 0.5 (0.2-0.8); MONOCYTES % 8.2 % (4.4-11.3); NEUTROPHILS # (AUTO) 4.4 (2.1-6.9); NEUTROPHILS % 74.9 % (38.7-80.0); PLATELET COUNT 136 x10e3/uL (140-360); RED BLOOD COUNT 2.57 x10e6/uL (3.6-5.1); RED CELL DISTRIBUTION WIDTH 16.7 % (11.7-14.4)
[2019-06-19 06:27] LABS: HEMATOCRIT 21.4 % (34.2-44.1); HEMOGLOBIN 6.8 g/dL (12.0-16.0)
[2019-06-19 06:44] LABS: ANION GAP 13.3 mmol/L (8-16); CALCIUM 7.5 mg/dL (8.4-10.2); CREATININE, SERUM 3.34 mg/dL (0.57-1.11); POTASSIUM 4.3 mmol/L (3.5-5.1)
--- NOTE | 2019-06-19 07:17 | NUR ---
Notified Dr. Diaz of critical hemoglobin level- new orders received 1 PRBC to give now and 3 PRBC to hold. Discussed new order with lab and oncoming RN, Barbara. updated on patient condition and stable BP.
[2019-06-19] MEDS: INSULIN LISPRO 100 UNIT/1 ML 3ML VIAL SQ SCH ×4 (07:30→22:12)
[2019-06-19] MEDS ORDERED: SODIUM CHLORIDE 0.9% 1000ML 1,000 ML ONE (07:42)
[2019-06-19] MEDS: ATORVASTATIN 20 MG TAB PO SCH (09:00)
[2019-06-19] MEDS: ASPIRIN 81 MG CHEW TAB PO SCH (09:00)
[2019-06-19] MEDS: TICAGRELOR 90 MG TABLET PO SCH ×2 (09:00→22:11)
[2019-06-19] MEDS: CARVEDILOL 12.5 MG TAB PO SCH ×2 (09:00→17:00)
[2019-06-19] MEDS: AMLODIPINE BESYLATE 5 MG TAB PO SCH (09:00)
[2019-06-19] MEDS: FUROSEMIDE INJ 10 MG/ML 4 ML VIAL IV PRN ×2 (10:37→17:52)
--- NOTE | 2019-06-19 10:46 | NUR ---
PATIENT TRANSPORTED TO ENDO FOR EGD Addendum: 06/19/19 at 1925 by Barbara Goddard RN patient returned from endo 1200
[2019-06-19] MEDS ORDERED: BISACODYL 5 MG TAB EC PO ONE (12:35)
[2019-06-19] MEDS ORDERED: PEG (High)/E-LYTE SOLN 4,000 ML BTL PO ONE (12:35)
[2019-06-19] MEDS ORDERED: SODIUM CHLORIDE 0.9% 250ML 250 ML IV ONE ×2 (14:00→21:00)
--- NOTE | 2019-06-19 15:45 | Progress Note ---
DATE: SUBJECTIVE: The patient went for EGD today. There was no source of active bleeding. The patient continues to require packed red blood cells. She is now receiving her 5th unit of packed red blood cells. She is more confused and disoriented. She is urinating adequately. PHYSICAL EXAMINATION: VITAL SIGNS: The patient is afebrile. The blood pressure is 131/52 and the saturation is 96%. The pulse is 83. HEENT: Shows no facial swelling or erythema. CARDIAC: Reveals regular rate and rhythm with normal S1 and S2. LUNGS: Auscultation of lungs reveals clear breath sounds bilaterally. There is no wheezing. ABDOMEN: Soft, nontender. There is no rebound or guarding. EXTREMITIES: Show no leg edema or calf tenderness. There is no cyanosis or clubbing. SKIN: Shows no rashes. LABORATORY DATA: White blood cell count is 5.88, and the platelet count is 136. The hemoglobin is 6 with hematocrit of 18. The PT is 15.9. The BUN to creatinine ratio is 60 and 3.34 and the other electrolytes are within normal limits. Calcium is 7.5. IMPRESSION: 1. Anemia secondary to acute blood loss. 2. Lower gastrointestinal bleeding. 3. Acute on chronic renal failure. 4. Recent myocardial infarction with stent placement. 5. Hypertension. 6. Possible pneumonia. PLAN: 1. Continue to give packed red blood cells as needed and monitor blood counts. 2. The patient may require platelets, FFP, or calcium related to her large amount of transfused blood products. 3. Continue current antibiotics and await culture results. 4. The patient must continue on her anti-platelet agents despite of bleeding because of recent stent placement. 5. Continue to monitor renal function. 6. Scheduled for colonoscopy tomorrow. Greater than 35 minutes in direct critical care time. MD BALBIR Javier/DOLORES /[id number]
[2019-06-19] MEDS ORDERED: LORAZEPAM 0.5 MG TAB PO PRN (16:45)
--- NOTE | 2019-06-19 16:45 | Progress Note ---
DATE: Cardiology Progress Note SUBJECTIVE: The patient denies any chest pain or shortness of breath. OBJECTIVE: VITAL SIGNS: Temperature is 98.6, heart rate 79, respirations are 16, blood pressure is ranging from systolic of 93-109 and diastolic of 52-72. GENERAL: Well appearing, no apparent distress. CARDIOVASCULAR: Regular rate and rhythm. LUNGS: Diminished breath sounds at the bases. ABDOMEN: Soft, nontender, nondistended. LABORATORY VALUES: Reviewed. Hemoglobin is 5.6, increased 6.0. IMPRESSION: 1. Acute gastrointestinal bleed. 2. Elevated troponin. 3. History of coronary artery disease, status post recent percutaneous coronary intervention due to myocardial infarction. 4. Acute on chronic diastolic heart failure. 5. Acute on chronic kidney disease. RECOMMENDATIONS: Continue diuretics as her blood pressure can tolerate. Her troponin value was downtrending from her recent myocardial infarction. ACS is not suspected. Of course, we are going to stop her dual anti-platelet therapy for her acute GI bleed. Transfuse as necessary. GI workup and. DICTATION ENDED ABRUPTLY DO DOREEN Sanon/MODL /[id number]
[2019-06-19] MEDS ORDERED: PROPOFOL IV EMULSION 10 MG/ML 50 ML VIAL ONE (17:17)
[2019-06-19] MEDS: CEFTRIAXONE SOD 1 GM/NS 50 ML 50 ML IV SCH (18:09)
[2019-06-19] MEDS: AZITHROMYCIN 500MG/NS 250 ML 250 ML IV SCH (18:38)
[2019-06-19 20:14] LABS: BASOPHILS % 0.4 % (0.0-1.0); EOSINOPHILS % 0.4 % (0.0-6.0); HEMOGLOBIN 7.4 g/dL (12.0-16.0); LYMPHOCYTES # (AUTO) 0.7 (1.0-3.2); LYMPHOCYTES % 8.2 % (18.0-39.1); MEAN CORPUSCULAR HEMOGLOBIN 26.7 pg (28-32); MEAN CORPUSCULAR HGB CONC 33.8 g/dL (31-35); MEAN CORPUSCULAR VOLUME 79.1 fL (81-99); MONOCYTES # (AUTO) 0.5 (0.2-0.8); MONOCYTES % 5.1 % (4.4-11.3); NEUTROPHILS # (AUTO) 7.6 (2.1-6.9); NEUTROPHILS % 85.5 % (38.7-80.0); PLATELET COUNT 95 x10e3/uL (140-360); RED BLOOD COUNT 2.77 x10e6/uL (3.6-5.1); RED CELL DISTRIBUTION WIDTH 23.5 % (11.7-14.4)
[2019-06-19 20:18] LABS: HEMATOCRIT 21.9 % (34.2-44.1)
[2019-06-19 20:28] LABS: INR 1.3; PROTHROMBIN TIME 17.1 seconds (11.9-14.5)
[2019-06-19 20:29] LABS: PARTIAL THROMBOPLASTIN TIME 31.9 seconds (23.8-35.5)
[2019-06-19 20:59] LABS: ANION GAP 14.6 mmol/L (8-16); CREATININE, SERUM 3.31 mg/dL (0.57-1.11); POTASSIUM 4.6 mmol/L (3.5-5.1)
[2019-06-19] MEDS ORDERED: CALCIUM GLUCONATE 10% INJ 9.3 MEQ in SODIUM CHLORIDE 0.9% 100 ML 100 ML IV ONE (21:00)
--- NOTE | 2019-06-19 21:00 | NUR ---
Updated Dr. Flower on Hgb 7.4 and current labs. Received orders for PRBC and [address] Diaz in the hospital and updated on labs, pt condition, and orders from Dr. Flower. Dr. Diaz ordered 2 gm calcium gluconate and ordered to give that amount.
--- NOTE | 2019-06-19 21:27 | Progress Note ---
DATE: 06/19/2019 Medicine Progress Note SUBJECTIVE: The patient is still having rectal bleeding throughout the entire day. She did undergo EGD, shows no evidence of any obvious findings of any bleeding. She is now scheduled for colonoscopy. She is still on q.6 hours hemoglobin checks. PHYSICAL EXAMINATION: VITAL SIGNS: Temperature is 99, pulse 76, respiratory rate is 18, blood pressure 132/62, and pulse ox 99% on room air. GENERAL: Not in acute distress. Alert and oriented x3. Cooperative on examination. HEENT: Head; normocephalic, atraumatic. Eyes; pupils are equal, round, and reactive to light bilaterally. Extraocular movements intact bilaterally. Throat; no evidence of erythema or exudates in the posterior pharynx. Has poor dentition. NECK: Supple. Good range of motion. PULMONARY: Clear to auscultation bilaterally. No wheezing, no rales, no rhonchi, no crackles appreciated. CARDIOVASCULAR: Positive S1 and S2. No murmurs, rubs, or gallops appreciated. ABDOMEN: Soft, nondistended, and nontender to palpation. Bowel sounds present. MUSCULOSKELETAL: Strength is 5/5 throughout. No evidence of any muscle deficits on examination. No weakness appreciated. NEUROLOGIC: Cranial nerves 2 through 12 grossly intact. No evidence of any neurological deficits on exam. SKIN: Intact. Warm to touch. Good cap refill. PSYCHIATRIC: Normal affect and mood. EXTREMITIES: No edema. Good range of motion throughout. LABORATORY DATA: Show white count was 8.9, hemoglobin this morning was low at 6, now 7.4, hematocrit is 22, and platelets of 95. Coagulation; PT 17, INR 1.3, and PTT 31.9. Chemistry; sodium 138, potassium 4.3, chloride 101, bicarb 29, anion gap of 13, BUN is 60, creatinine is 3.34, and glucose 154. Lactic acid was 0.7. Ionized calcium is 1. Blood cultures; coag-negative, staph one of two like to be a contaminant. Urine cultures were negative. IMAGING STUDIES: Chest x-ray, no significant interval change. IMPRESSION: 1. Acute exacerbation of congestive heart failure with unknown dysfunction. 2. Non-ST elevation myocardial infarction with recent left heart catheterization with stents placed back in June of 2019. 3. Hypertension. 4. Probable community-acquired pneumonia. 5. Hyperlipidemia. 6. Chronic kidney disease, stage 5. 7. Black tarry stool with underlying anemia. 8. Coag-negative staph, likely to be a skin contaminant bacteremia. PLAN: At this time, continue with cardioprotective medications. I will defer anti-platelet therapy to Cardiology. The patient continues to be on anti-platelet therapy despite me discussing this case with him as well as the nursing staff discussing this with him as well. She is not on any heparin. She did get an EGD today. No evidence of any active bleeding. Colonoscopy scheduled for tomorrow. She is still in ICU. Protonix drip continued. GI is following very closely. Continue with q.6 hours hemoglobin levels. She did receive several blood transfusions. She still has blood on hold. Continue with IV antibiotics. This is less likely to be a bacteremia, likely to be a contaminant. No fever. White count normal. She does have a central line. I spent significant period of time on this case, more than 35 minutes of critical care time. MD ADAN Astorga/DOLORES /[id number]
[2019-06-20] VITALS (22 sets, daily range): BP systolic 95–168; BP diastolic 40–134
[2019-06-20 03:01] LABS: HEMATOCRIT 24.6 % (34.2-44.1); HEMOGLOBIN 8.5 g/dL (12.0-16.0)
[2019-06-20] MEDS: PANTOPRAZOL 40MG/SOD CHL 0.9% 50 ML IV SCH ×3 (03:54→12:39)
[2019-06-20 05:30] LABS: BASOPHILS # (AUTO) 0.1 (0.0-0.1); BASOPHILS % 0.5 % (0.0-1.0); EOSINOPHILS # (AUTO) 0.2 (0.0-0.4); EOSINOPHILS % 1.8 % (0.0-6.0); HEMATOCRIT 23.1 % (34.2-44.1); HEMOGLOBIN 7.8 g/dL (12.0-16.0); LYMPHOCYTES # (AUTO) 1.1 (1.0-3.2); LYMPHOCYTES % 11.9 % (18.0-39.1); MEAN CORPUSCULAR HEMOGLOBIN 26.9 pg (28-32); MEAN CORPUSCULAR HGB CONC 33.8 g/dL (31-35); MEAN CORPUSCULAR VOLUME 79.7 fL (81-99); MONOCYTES # (AUTO) 0.8 (0.2-0.8); MONOCYTES % 8.6 % (4.4-11.3); NEUTROPHILS # (AUTO) 7.1 (2.1-6.9); NEUTROPHILS % 76.7 % (38.7-80.0); PLATELET COUNT 95 x10e3/uL (140-360); RED CELL DISTRIBUTION WIDTH 21.5 % (11.7-14.4)
[2019-06-20 06:28] LABS: ANION GAP 14.3 mmol/L (8-16); CALCIUM 7.2 mg/dL (8.4-10.2); CREATININE, SERUM 3.25 mg/dL (0.57-1.11); POTASSIUM 4.3 mmol/L (3.5-5.1)
[2019-06-20] MEDS: INSULIN LISPRO 100 UNIT/1 ML 3ML VIAL SQ SCH ×4 (07:30→21:00)
[2019-06-20] MEDS: ATORVASTATIN 20 MG TAB PO SCH (08:15)
[2019-06-20] MEDS: AMLODIPINE BESYLATE 5 MG TAB PO SCH (08:15)
[2019-06-20] MEDS: CARVEDILOL 12.5 MG TAB PO SCH ×2 (08:15→17:43)
--- NOTE | 2019-06-20 08:33 | Progress Note ---
DATE: SUBJECTIVE: The patient completed 5 units of packed red blood cells yesterday. She did not require any additional packed red blood cells last night. She received calcium for low ionized calcium. She has not required any platelets or FFP. The patient is scheduled for a colonoscopy this morning. PHYSICAL EXAMINATION: VITAL SIGNS: The patient is afebrile. The blood pressure is 165/73, saturation is 98% on 2 L. HEENT: No facial swelling or erythema. LYMPHATIC: No submandibular, cervical, or supraclavicular adenopathy. CARDIAC: Regular rate and rhythm with normal S1, S2. LUNGS: Auscultation of the lungs shows clear breath sounds bilaterally. There is no wheezing. ABDOMEN: Soft, nontender. There is no rebound or guarding. EXTREMITIES: No leg edema or calf tenderness. There is no cyanosis or clubbing. SKIN: No rashes. LABORATORY DATA: BUN to creatinine ratio is 66 to 3.25. Other electrolytes are within normal limits. White blood cell count is 9.22 and hemoglobin is 7.8. The platelet count is 95. Ionized calcium is 1.2. IMPRESSION: 1. Anemia secondary to acute blood loss. 2. Gastrointestinal bleeding from unclear source. 3. Subacute myocardial infarction with recent left heart catheterization and stent placement. 4. Chronic renal failure stage 5. 5. Hypertension. 6. Possible community-acquired pneumonia. 7. Acute on chronic diastolic heart failure. PLAN: 1. Continue to monitor blood counts as well as platelets and coagulation times. 2. Await colonoscopy today. 3. Complete current antibiotic therapy. 4. Continue to monitor renal function. 5. Continue current cardiac regimen including dual platelet therapy for the recent stent. 6. Greater than 35 minutes in direct critical care time. Miguel Flower MD [facility]/MODL /[id number]
[2019-06-20 12:34] LABS: HEMATOCRIT 20.7 % (34.2-44.1)
[2019-06-20] MEDS ORDERED: SODIUM CHLORIDE 0.9% 250ML 250 ML IV ONE ×2 (12:45→14:40)
--- NOTE | 2019-06-20 13:30 | NUR ---
PT TAKEN TO OR FOR COLONOSCOPY
[2019-06-20] MEDS: TICAGRELOR 90 MG TABLET PO SCH ×2 (15:30→22:00)
[2019-06-20] MEDS: ASPIRIN 81 MG CHEW TAB PO SCH (15:30)
[2019-06-20] MEDS: CEFTRIAXONE SOD 1 GM/NS 50 ML 50 ML IV SCH (17:43)
[2019-06-20] MEDS: AZITHROMYCIN 500MG/NS 250 ML 250 ML IV SCH (17:43)
[2019-06-20 18:19] LABS: HEMATOCRIT 19.5 % (34.2-44.1); HEMOGLOBIN 6.6 g/dL (12.0-16.0)
--- NOTE | 2019-06-20 18:45 | NUR ---
Report received. Assumed care. Assessment done. See interventions.
[2019-06-20] MEDS ORDERED: SODIUM CHLORIDE 0.9% 250ML 250 ML ONE (19:15)
--- NOTE | 2019-06-20 19:15 | NUR ---
Transfusion started. Hg 6.6.
--- NOTE | 2019-06-20 21:00 | NUR ---
Cleaned for dark red stool.
--- NOTE | 2019-06-20 21:16 | Progress Note ---
DATE: 06/20/2019 SUBJECTIVE: The patient still had some rectal bleeding this morning. She underwent a colonoscopy, found to have no evidence of any bleeding or the cause of her bleeding. She is currently very stable. LABORATORY DATA: Show hemoglobin this morning was 7.8 and 6.6, hematocrit is now 19.5. Chemistry; sodium 139, potassium 4.3, chloride 103, bicarb 26, anion gap of 14, BUN is 66, creatinine is 3.25. Urinalysis negative. MICROBIOLOGY: Blood culture one of two was coag-negative staph likely to be a contaminant. Urine cultures, no growth. IMAGING STUDIES: None. OBJECTIVE: VITAL SIGNS: She is afebrile, pulse 71, respiratory rate is 20, blood pressure is 111/42, pulse ox 99% on 2 L nasal cannula. GENERAL: No acute distress, alert and oriented x3, cooperative on examination. HEENT: Head normocephalic, atraumatic. Eyes; pupils are equal, round, and reactive to light bilaterally. Extraocular movements intact bilaterally. NECK: Supple. Good range of motion. Throat, no evidence of erythema or exudate in the posterior pharynx. Has poor dentition. PULMONARY: Clear to auscultation bilaterally. No wheezing, no rales, no rhonchi, no crackles appreciated. CARDIOVASCULAR: Positive S1 and S2. No murmurs, rubs, or gallops appreciated. ABDOMEN: Soft, nondistended, and nontender to palpation. Bowel sounds present. MUSCULOSKELETAL: Strength is 5/5 throughout. No evidence of any muscle deficits on examination. No weakness appreciated. NEUROLOGIC: Cranial nerves 2 through 12 grossly intact. No evidence of any neurological deficits on exam. SKIN: Intact. Warm to touch. Good cap refill. PSYCHIATRIC: Normal affect and mood. EXTREMITIES: No edema. Good range of motion throughout. IMPRESSION: 1. Acute exacerbation of congestive heart failure with unknown dysfunction. 2. NSTEMI with recent left heart cath with stents June 2019. 3. Hypertension. 4. Probable community-acquired pneumonia. 5. Hyperlipidemia. 6. CKD stage 5. 7. Black tarry stool with underlying anemia. 8. Coag-negative Staphylococcus likely skin contaminant, less likely to be bacteremia. PLAN: At this time, continue with cardioprotective medications. She is still on anti-platelet therapy per Cardiology and GI. She is currently very stable. She underwent EGD, found no evidence of active bleeding performed on 06/19/2019, colonoscopy was performed today and according to the nurse nothing was found, but I am still waiting for the final results. Continue with Protonix drip. Blood transfusion if hemoglobin less than 7. We will monitor the patient very closely. She will continue to be in ICU. Spent more than 35 minutes of time on this. MD ADAN Astorga/DOLORES /[id number]
[2019-06-21] VITALS (20 sets, daily range): BP systolic 109–136; BP diastolic 34–95
--- NOTE | 2019-06-21 | NUR ---
Blood drawn for HH. Cleaned for mod dark red stool
[2019-06-21 00:37] LABS: HEMOGLOBIN 7.4 g/dL (12.0-16.0)
[2019-06-21 00:43] LABS: HEMATOCRIT 21.7 % (34.2-44.1)
[2019-06-21 06:04] LABS: HEMOGLOBIN 7.2 g/dL (12.0-16.0)
[2019-06-21 06:15] LABS: ANION GAP 10.8 mmol/L (8-16); CALCIUM 7.3 mg/dL (8.4-10.2); CREATININE, SERUM 3.11 mg/dL (0.57-1.11); POTASSIUM 3.8 mmol/L (3.5-5.1)
[2019-06-21 06:41] LABS: HEMATOCRIT 20.9 % (34.2-44.1)
[2019-06-21] MEDS: INSULIN LISPRO 100 UNIT/1 ML 3ML VIAL SQ SCH ×4 (08:00→21:10)
[2019-06-21] MEDS: ASPIRIN 81 MG CHEW TAB PO SCH (09:07)
[2019-06-21] MEDS: ATORVASTATIN 20 MG TAB PO SCH (09:07)
[2019-06-21] MEDS: PANTOPRAZOLE 40 MG 10ML VIAL IV SCH (09:07)
[2019-06-21] MEDS: CARVEDILOL 12.5 MG TAB PO SCH ×2 (09:07→17:40)
[2019-06-21] MEDS: AMLODIPINE BESYLATE 5 MG TAB PO SCH (09:07)
[2019-06-21] MEDS: TICAGRELOR 90 MG TABLET PO SCH ×2 (09:07→21:30)
[2019-06-21] MEDS ORDERED: HEPARIN SOD (PORCINE) 1000 UNIT/ML SDV ONE (10:29)
--- NOTE | 2019-06-21 11:57 | Progress Note ---
DATE: 06/21/2019 Cardiology Progress Note SUBJECTIVE: The patient denies chest pain or shortness of breath. The patient is scheduled for a GI bleeding scan with nuclear medicine. OBJECTIVE: VITAL SIGNS: Temperature 98.9 degrees, pulse 68, respiratory rate 20, blood pressure 113/45, and oxygen saturation 97% on 2 L nasal cannula. GENERAL: Awake, alert, in no acute distress. LUNGS: Clear to auscultation bilaterally. No wheezes or crackles. CARDIOVASCULAR: Normal rate, regular rhythm. No murmur. Normal S1, S2. ABDOMEN: Soft, nontender. EXTREMITIES: No edema. CARDIAC MEDICATIONS: Carvedilol 25 mg p.o. b.i.d., atorvastatin 20 mg p.o. daily, aspirin 81 mg p.o. daily, amlodipine 10 mg p.o. daily. LABORATORY DATA: Hemoglobin 7.2, hematocrit 20.9. Sodium 137, potassium 3.8, chloride 104, CO2 of 26, BUN 63, creatinine 3.11. Telemetry, personally reviewed and interpreted, revealing normal sinus rhythm. IMPRESSION: 1. Acute gastrointestinal bleed. 2. Elevated troponin. 3. History of coronary artery disease, status post recent PCI due to myocardial infarction. 4. Qyale-ex-zlpdicq diastolic heart failure. 5. Dzmkp-mw-pknjnjo kidney disease. RECOMMENDATIONS: The patient's troponin is downtrending, likely from her recent myocardial infarction. Do not suspect ACS. Continue dual anti-platelet therapy, given her very recent stent. Continue current cardiac medications. Evaluation of acute anemia per GI note. Plan for nuclear medicine scan today. Monitor blood pressure closely. Transfuse as necessary. Thank you for this consult. We will continue to follow. Shikha Whaley MD [facility]/MODL /[id number]
[2019-06-21 12:08] LABS: HEMATOCRIT 23.2 % (34.2-44.1); HEMOGLOBIN 7.9 g/dL (12.0-16.0)
--- NOTE | 2019-06-21 14:04 | Diagnostic Imaging Report ---
Tagged-RBC GI Bleed Study Clinical information: 84-year-old female with dark reddish stools and drop in hemoglobin requiring transfusion. Discussion: The patient's own red blood cells were labeled with 26 mCi of technetium-99m pertechnetate using the in vitro method (UltraTag). Dynamic images of the abdomen were obtained through 60 minutes. Distribution of tracer activity appears physiologic throughout the abdomen except for the presence of collateral vessels arising from the iliac arteries. No abnormal accumulation of tracer is seen within the gastrointestinal lumen. Impression: No scan evidence of active gastrointestinal bleeding at this time. Signed by: Dr. Whitley Gross M.D. on 06/21/2019 2:00 PM
--- NOTE | 2019-06-21 15:59 | Progress Note ---
DATE: SUBJECTIVE: The patient had a colonoscopy, but no clear source of bleeding was found. She went for a bleeding scan. The results are pending. PHYSICAL EXAMINATION: VITAL SIGNS: The patient is afebrile. The blood pressure is 134/50 and the saturation is 99% on 2 L. HEENT: No facial swelling or erythema. CARDIAC: Regular rate and rhythm with normal S1, S2. LUNGS: Auscultation of lungs is clear breath sounds bilaterally. There is no wheezing. ABDOMEN: Soft, nontender. There is no rebound or guarding. EXTREMITIES: No leg edema or calf tenderness. There is no cyanosis or clubbing. SKIN: No rashes. IMPRESSION: 1. Anemia secondary to acute blood loss. 2. Lower gastrointestinal bleeding. 3. Recent myocardial infarction with stent placement. 4. Chronic renal failure. 5. Hypertension. PLAN: 1. Await results of bleeding scan. 2. Continue to monitor blood counts. 3. Complete antibiotics. 4. Dialysis if needed. Miguel Flower MD [facility]/MADHAVL /[id number]
[2019-06-21] MEDS ORDERED: SODIUM CHLORIDE 0.9% 250ML 250 ML IV SCH (16:00)
[2019-06-21] MEDS: AZITHROMYCIN 500MG/NS 250 ML 250 ML IV SCH (17:40)
[2019-06-21] MEDS: CEFTRIAXONE SOD 1 GM/NS 50 ML 50 ML IV SCH (17:40)
[2019-06-21 18:23] LABS: HEMOGLOBIN 7.6 g/dL (12.0-16.0)
[2019-06-21 18:27] LABS: HEMATOCRIT 22.4 % (34.2-44.1)
--- NOTE | 2019-06-21 19:10 | NUR ---
RECEIVED THE PATIENT IN REPORT.EDUCATED PT ABOUT FALL PRECAUTIONS. PT VERBALIZED UNDERSTANDING. CALL LIGHT WITH IN EASY REACH. INSTRUCTED PT TO USE CALL LIGHT FOR ALL THE NEEDS. BED IS LOW AND LOCKED. SIDE RAILS X2. BED ALARM IS ON. PT DENIES NEEDS AT THIS TIME.
--- NOTE | 2019-06-21 22:00 | NUR ---
was in the unit and suggested no need H&H Q6H.ordered lab am.lindsay care given.central line dressing changed.
--- NOTE | 2019-06-21 23:19 | Progress Note ---
DATE: 06/21/2019 GI Progress Report SUBJECTIVE: The patient has had one large BM early this morning that was noted dark black with some blood clot. No bright red blood seen. The patient remained hemodynamically stable. Tolerating clear liquid diet. Reports no abdominal pain. REVIEW OF SYSTEMS: GENERAL: Admits to some weakness. CVS: No chest pain or palpitation. RESPIRATORY: No cough or expectoration. MEDICATIONS: Reviewed as per MAY. PHYSICAL EXAMINATION: VITAL SIGNS: Temperature 98, pulse 75, respirations 16, blood pressure 134/34, oxygen saturation 99% on 2 L of nasal cannula. LABORATORY DATA: Hemoglobin remains stable. It was 7.4, 7.2, 7.9, 7.6. The patient's hemoglobin was 6.6 yesterday. She received total 2 units of packed red blood cell transfusion. IMPRESSION: Lower gastrointestinal bleeding, which is diverticular as seen on the colonoscopy done yesterday. No active GI bleeding at this time. Bleeding scan performed today showed no active bleeding. PLAN: Agreed with the patient transfer from ICU to the floor. Continue dual antiplatelet therapy given recent PCI with LUCIA. I will continue clear liquid diet today just to observe her tonight. If hemoglobin remains stable tomorrow morning, she does not have any further episode of hematochezia, then we can advance her diet to cardiac diet. Rest of the care as per primary team. Tate Dawn MD [facility]/DOLORES /[id number] LESLIE
[2019-06-22] VITALS (7 sets, daily range): BP systolic 115–163; BP diastolic 54–72
--- NOTE | 2019-06-22 02:31 | Progress Note ---
DATE: Medicine Progress Note SUBJECTIVE: The patient is doing well. She does not have any more rectal bleeding according to the nurse. Her hemoglobin is stable. RBC tagged scan was found to be negative. She will be downgraded to the medical floor. PHYSICAL EXAMINATION: VITAL SIGNS: Temperature is 98, pulse 70, respiratory rate 16, blood pressure is 130/67, and pulse ox 99% on 2 L nasal cannula. GENERAL: Not in acute distress. Alert and oriented x3. Cooperative on examination. HEENT: Head; normocephalic, atraumatic. Eyes; pupils are equal, round, and reactive to light bilaterally. Extraocular movements intact bilaterally. Throat; no evidence of erythema or exudates in the posterior pharynx. Has poor dentition. NECK: Supple. Good range of motion. PULMONARY: Clear to auscultation bilaterally. No wheezing, no rales, no rhonchi, no crackles appreciated. CARDIOVASCULAR: Positive S1 and S2. No murmurs, rubs, or gallops appreciated. ABDOMEN: Soft, nondistended, and nontender to palpation. Bowel sounds present. MUSCULOSKELETAL: Strength is 5/5 throughout. No evidence of any muscle deficits on examination. No weakness appreciated. NEUROLOGIC: Cranial nerve II through XII grossly intact. No evidence of any neurological deficits on exam. SKIN: Intact. Warm to touch. Good cap refill. PSYCHIATRIC: Normal affect and mood. EXTREMITIES: No edema. Good range of motion throughout. LABORATORY DATA: Show last hemoglobin recorded at 7.6 and has been stable. Hematocrit is 22.4. Chemistry; sodium 137, potassium is 3.8, chloride 104, bicarb 26, anion gap of 10, BUN is 63, creatinine is 3.1, glucose is 189, calcium is 7.3. MICROBIOLOGY: She had coag-negative staph 1 of 2, likely to be a contaminant, but urine cultures are negative. IMAGING STUDIES: RBC tagged scan was performed showed no evidence of active GI bleeding at this time. IMPRESSION: 1. Acute exacerbation of congestive heart failure with unknown dysfunction. 2. Jcy-LA-bzrtlzwtj myocardial infarction with left heart catheterization with stents placed in June 2019. 3. Hypertension. 4. Probable community-acquired pneumonia. 5. Hyperlipidemia. 6. Chronic kidney disease, stage 5. 7. Black tarry stool with underlying anemia. 8. Coag-negative Staphylococcus, skin contaminant bacteremia, likely to be a contaminant. PLAN: At this time, RBC tagged scan was negative. Hemoglobin seems to be stable at this time. Source of bleeding unknown at this time. We will continue with anti-platelet therapy per Cardiology and GI. Repeat labs in the morning. Her colonoscopy performed on 06/19/2019 was found to be negative. EGD was also found to be negative. We will transfuse blood if hemoglobin less than 7. At this time, if she continues to bleed, the only next option would be angiogram to be performed by Interventional Radiology, but the patient will have to understand that she may end up on dialysis as she has CKD stage 5, as the patient will likely need contrast for this procedure. MD ADAN Astorga/DOLORES /[id number]
--- NOTE | 2019-06-22 05:00 | NUR ---
Central line dressing changed.pt tolerated well.
[2019-06-22 05:39] LABS: BASOPHILS # (AUTO) 0.1 (0.0-0.1); BASOPHILS % 0.7 % (0.0-1.0); EOSINOPHILS # (AUTO) 1.1 (0.0-0.4); EOSINOPHILS % 12.1 % (0.0-6.0); HEMOGLOBIN 7.2 g/dL (12.0-16.0); LYMPHOCYTES % 11.1 % (18.0-39.1); MEAN CORPUSCULAR HEMOGLOBIN 28.1 pg (28-32); MEAN CORPUSCULAR HGB CONC 33.3 g/dL (31-35); MEAN CORPUSCULAR VOLUME 84.4 fL (81-99); MONOCYTES # (AUTO) 0.6 (0.2-0.8); NEUTROPHILS # (AUTO) 6.2 (2.1-6.9); NEUTROPHILS % 68.5 % (38.7-80.0); PLATELET COUNT 105 x10e3/uL (140-360); RED BLOOD COUNT 2.56 x10e6/uL (3.6-5.1); RED CELL DISTRIBUTION WIDTH 19.6 % (11.7-14.4)
[2019-06-22 05:47] LABS: HEMATOCRIT 21.6 % (34.2-44.1)
[2019-06-22 06:07] LABS: ANION GAP 11.7 mmol/L (8-16); CALCIUM 7.7 mg/dL (8.4-10.2); CREATININE, SERUM 2.87 mg/dL (0.57-1.11); POTASSIUM 3.7 mmol/L (3.5-5.1)
--- NOTE | 2019-06-22 07:05 | NUR ---
Bed side shift report given to oncoming Rn.stable condition.
--- NOTE | 2019-06-22 08:00 | NUR ---
PATIENT ASSESSED IN BED. NO COMPLAINTS OF PAIN. DRESSING TO RIGHT IJ C/D/I. ALL THREE PORTS FLUSH WELL. LEFT AC IV FLUSHES WELL. KELLEY TO BEDSIDE. ABDOMEN SOFT TO PALPATION. TELEMERY BOX #15 WITH NORMAL SINUS HR OF 76. SEE CHART FOR ASSESSMENT.
[2019-06-22] MEDS: INSULIN LISPRO 100 UNIT/1 ML 3ML VIAL SQ SCH ×4 (08:14→21:00)
[2019-06-22] MEDS: ASPIRIN 81 MG CHEW TAB PO SCH (08:25)
[2019-06-22] MEDS: TICAGRELOR 90 MG TABLET PO SCH ×2 (08:25→21:00)
[2019-06-22] MEDS: PANTOPRAZOLE 40 MG 10ML VIAL IV SCH (08:25)
[2019-06-22] MEDS: CARVEDILOL 12.5 MG TAB PO SCH ×2 (08:25→16:57)
[2019-06-22] MEDS: ATORVASTATIN 20 MG TAB PO SCH (08:25)
[2019-06-22] MEDS: AMLODIPINE BESYLATE 5 MG TAB PO SCH (08:25)
--- NOTE | 2019-06-22 13:47 | Progress Note ---
DATE: SUBJECTIVE: The patient has no further bleeding. She is less confused. She is not having fevers. PHYSICAL EXAMINATION: VITAL SIGNS: The blood pressure is 129/62 and the saturation is 100% on 2 L. HEENT: Shows no facial swelling or erythema. CARDIAC: Reveals regular rate and rhythm with normal S1 and S2. LUNGS: Auscultation of lungs shows decreased breath sounds at the bases. There is no wheezing. ABDOMEN: Soft and nontender. There is no rebound or guarding. EXTREMITIES: Shows no leg edema or calf tenderness. LABORATORY DATA: The hemoglobin is 7.2 and the white blood cell count is 9. The platelet count is 105. BUN to creatinine ratio is 49 to 2.87. The other electrolytes are within normal limits. IMPRESSION: 1. Anemia secondary to acute blood loss. 2. Lower gastrointestinal bleeding. 3. Recent myocardial infarction with stent placement. 4. Stage 5 chronic renal failure. PLAN: 1. Continue to monitor blood counts. 2. If bleeding recurs, an arteriogram may be necessary. 3. Continue to monitor renal function. 4. Out of bed as tolerated. 5. Continue current therapy for heart disease. Miguel Flower MD [facility] /[id number]
--- NOTE | 2019-06-22 14:15 | NUR ---
DR. TAYLOR CALLED DAUGHTER PER HER REQUEST. DR. SAPP CONSULTED FOR RENAL.
[2019-06-22 14:54] LABS: % IRON SATURATION 18 % (15-50); IRON 35 ug/dL (50-170); TOTAL IRON BINDING CAPACITY 190 ug/dL (261-478); TRANSFERRIN 136 mg/dL (180-382)
--- NOTE | 2019-06-22 16:45 | Diagnostic Imaging Report ---
EXAM: Renal Ultrasound INDICATION: Acute kidney injury ^porsche ^[id number] ^[id number] COMPARISON: None TECHNIQUE: Transverse and longitudinal images of the kidneys and bladder were obtained. FINDINGS: Right Kidney: Length: 8.7 x 4.9 x 4.4 cm Appearance: Normal echogenicity. Collecting system: Mild hydronephrosis Stones: None Cyst/Mass: None Left Kidney: Length: 7.8 x 4.0 x 3.9 cm Appearance: Normal echogenicity. Collecting system: No hydronephrosis Stones: None Cyst/Mass: None Bladder: Dalton catheter IMPRESSION: Mild right-sided hydronephrosis. Small kidneys. Signed by: Dr. Beltran Mccullough M.D. on 06/22/2019 4:42 PM
[2019-06-22] MEDS: CEFTRIAXONE SOD 1 GM/NS 50 ML 50 ML IV SCH (16:57)
[2019-06-22] MEDS: AZITHROMYCIN 250 MG TAB PO SCH (16:58)
[2019-06-22] MEDS ORDERED: SODIUM CHLORIDE 0.9% 250ML 250 ML ONE (17:12)
--- NOTE | 2019-06-22 17:39 | Progress Note ---
DATE: SUBJECTIVE: No events. No more bleeding. OBJECTIVE: VITAL SIGNS: Temperature is 96.7, heart rate is 68, respirations are 18, blood pressure is 129/60, ox saturation 100% on room air. GENERAL: Well appearing in no apparent distress. LUNGS: Clear to auscultation. ABDOMEN: Soft, nontender, and nondistended. CARDIOVASCULAR: Regular rate and rhythm. No murmurs. EXTREMITIES: No edema. MEDICATIONS: All cardiovascular medications reviewed. LABORATORY DATA: Reviewed. Hemoglobin stable at 7.2. TELEMETRY: Personally reviewed and interpreted revealing normal sinus rhythm. IMPRESSION: 1. Acute gastrointestinal bleed. 2. Elevated troponin. 3. Coronary artery disease, status post recent percutaneous coronary intervention due to myocardial infarction. 4. Acute on chronic diastolic heart failure. 5. Acute on chronic kidney disease. PLAN: Troponin continues to downtrend. No evidence of ACS. Continue dual antiplatelet therapy given recent stent. Continue current cardiovascular medications. Monitor hemoglobin. Bleeding workup per primary and Gastroenterology teams. Terence Vidal DO [facility] /[id number]
--- NOTE | 2019-06-22 20:09 | Consultation ---
DATE OF CONSULTATION: 06/22/2019 HISTORY OF PRESENT ILLNESS: An 84-year-old female, familiar to our Nephrology Service. She was last seen in the office in 2018 with a baseline creatinine 2.0. She decided not to come back to the office. In the meantime, she had non ST-segment elevated FL. Had a cardiac cath, had a PCI and stenting done, placed on platelet inhibitors, was admitted this time with congestive heart failure, and then developed GI bleed, had upper and lower endoscopy which was negative. She is otherwise stable, comfortable, lying supine, in no apparent distress. Denies shortness of breath, nausea, vomiting. Has an indwelling Dalton catheter. She is nonoliguric. ALLERGIES: NO APPARENT DRUG ALLERGIES. SOCIAL HISTORY: The patient does not smoke or drink. FAMILY HISTORY: Significant for hypertension. CURRENT MEDICATIONS: 1. Azithromycin was stopped, currently on ceftriaxone. 2. Amlodipine 10 mg daily. 3. Tylenol p.r.n. 4. Aspirin 10 mg daily. 5. Atorvastatin 20 mg daily. 6. She is on p.o. azithromycin 500 mg p.o. q.24. 7. Carvedilol 25 p.o. b.i.d. 8. Humalog insulin. 9. Ondansetron. 10. Pantoprazole. 11. She is on Brilinta 90 mg q.12. 12. Tramadol p.r.n. PAST HISTORY: Diabetes, diabetic kidney disease, most likely stage III. PHYSICAL EXAMINATION: GENERAL: Awake, alert, oriented x3, lying supine, in no apparent distress. VITAL SIGNS: Blood pressure 129/62, pulse rate 68, afebrile. HEAD AND NECK: Cornea clear. Mucosa moist. LUNGS: Relatively clear. HEART: S1, S2 audible. ABDOMEN: Otherwise soft, nontender. No apparent visceromegaly. EXTREMITIES: Lower extremity examination shows no edema. Some ecchymotic patches noted over the upper extremity, most extensive aspects. No edema. IMPRESSION AND PLAN: 1. Veypv-na-jhnhcok kidney failure, underlying diabetic nephropathy, chronic kidney disease 3. 2. Hypertension. 3. Anemia, status post packed RBC transfusion. I will obtain iron profile. May need IV iron, erythropoietin, spot urine protein-creatinine ratio, kidney ultrasound. Clinic record, she sees Dr. Bah, my associate, at high-risk for bleeding again if she remains on Brilinta, but difficult situation given the fact that she has had recent PCI and stenting. At the moment, GI bleeding has stopped. Her last echo shows ejection fraction of 55% to 60% with mild MR and TR. Please see orders. MD YOHANA Sherman/DOLORES /[id number]
--- NOTE | 2019-06-22 20:39 | Progress Note ---
DATE: 06/22/2019 GI Progress Report SUBJECTIVE: The patient has had one bowel movement, stool was dark. No bright red blood per rectum. Tolerating clear liquid diet. The patient is hungry. She would like to eat solid food. REVIEW OF SYSTEMS: GENERAL: Generalized weakness and fatigue. No fever or chills. CVS: No chest pain or palpitations. RESPIRATORY: No cough or expectoration. MEDICATIONS: Reviewed as per MAR. PHYSICAL EXAMINATION: VITAL SIGNS: Temperature 97.8, pulse 81, respirations 16, blood pressure 146/55, and oxygen saturation 100% on room air. GENERAL: Not in any acute distress. Oral mucosa is moist. ABDOMEN: Soft, nondistended, and nontender. No mass or hernia. Positive bowel sounds. LABORATORY DATA: Hemoglobin down to 7.2 from 7.6, WBC 9.02, hematocrit 21.6, MCV 84.4, and platelet count 105. IMPRESSION: Hematochezia, secondary to colonic diverticular bleeding, this has ceased. Hemoglobin remains stable. The bowel movement she had this morning was a dark stool, old blood. I do not suspect any active GI bleeding. PLAN: From GI standpoint continue present medication. Advance to a diabetic diet. Monitor her stool. No need to monitor hemoglobin. Tate Dawn MD [facility] /[id number]
--- NOTE | 2019-06-22 20:48 | NUR ---
Received report from nurse. Walking rounds completed.
[2019-06-23] VITALS (8 sets, daily range): BP systolic 102–141; BP diastolic 48–58
--- NOTE | 2019-06-23 01:19 | Progress Note ---
DATE: 06/22/2019 Medicine Progress Note SUBJECTIVE: The patient is doing well today. There is no evidence of any active bleeding. Her hemoglobin has maintained stable. I did discuss this case with her daughter. PHYSICAL EXAMINATION: VITAL SIGNS: Temperature is 97.5, pulse 72, respiratory rate is 17, blood pressure 120/72, and pulse ox 97% on 2 L nasal cannula. GENERAL: Not in acute distress. Alert and oriented x3. Cooperative on exam. HEENT: Head; normocephalic, atraumatic. Eyes; pupils are equal, round, and reactive to light bilaterally. Extraocular movements intact bilaterally. Throat; no evidence of erythema or exudates in the posterior pharynx. Has poor dentition. NECK: Supple. Good range of motion. PULMONARY: Clear to auscultation bilaterally. No wheezing, no rales, no rhonchi, no crackles appreciated. CARDIOVASCULAR: Positive S1 and S2. No murmurs, rubs, or gallops appreciated. ABDOMEN: Soft, nondistended, and nontender to palpation. Bowel sounds present. MUSCULOSKELETAL: Strength is 5/5 throughout. No evidence of any muscle deficits on examination. No weakness appreciated. NEUROLOGIC: Cranial nerves 2 through 12 grossly intact. No evidence of any neurological deficits on exam. SKIN: Intact. Warm to touch. Good cap refill. PSYCHIATRIC: Normal affect and mood. EXTREMITIES: No edema. Good range of motion throughout. LABORATORY DATA: Show white count 9, hemoglobin 7.2, hematocrit is 21.6, and platelets of 105. Chemistry; pertinent positive, her creatinine down trended to 2.87, her potassium is 3.7, chloride is 26, anion gap of 11.7, BUN is 49, and sodium is 140. IMPRESSION: 1. Acute exacerbation of congestive heart failure with unknown dysfunction. 2. Pvn-VH-upswzvjuo myocardial infarction with left heart catheterization with stents placement in June 2019. 3. Hypertension. 4. Probable community-acquired pneumonia. 5. Hyperlipidemia. 6. Chronic kidney disease, stage 3-4. 7. Black tarry stool with underlying anemia. 8. Coag-negative Staphylococcus skin contaminant. PLAN: At this time, her hemoglobin did maintain stable at 7.2 and has been stable over the last several weeks. We did get repeat hemoglobin level in the morning. According to GI, previous day labs were monitored. There was no evidence of source of bleeding. We will get repeat CBC and chemistry in the morning. She did have a colonoscopy performed and colonoscopy was reviewed and found to be negative. Due to underlying CKD, I did go ahead and consult with the patient's primary transportation aide to come and evaluate her. She is currently doing much better with no other issues. I had a long discussion with the patient's daughter by phone. We discussed all that found in EGD, colonoscopy, and RBC tagged scan. At this time, studies have been found to be negative for the source of bleeding. She does need an outpatient capsule endoscopy at a later date. If the patient maintained stable, she could potentially be discharged hopefully sometime may be in the weekend or possibly on Tuesday if the hemoglobin maintained stable with no evidence of any bleeding. She must continue with anti-platelet therapy as well as cardioprotective medications as per Cardiology from her recent stents. Otherwise, we will continue same plan of care and monitor her very closely. I discussed this with the daughter and the patient, and they both verbalized understanding and agreed with plan of care. MD ADAN Astorga/DOLORES /[id number]
[2019-06-23 06:03] LABS: BASOPHILS % 0.6 % (0.0-1.0); EOSINOPHILS % 14.9 % (0.0-6.0); LYMPHOCYTES # (AUTO) 0.7 (1.0-3.2); LYMPHOCYTES % 10.4 % (18.0-39.1); MEAN CORPUSCULAR HEMOGLOBIN 28.6 pg (28-32); MEAN CORPUSCULAR HGB CONC 33.3 g/dL (31-35); MEAN CORPUSCULAR VOLUME 85.9 fL (81-99); MONOCYTES # (AUTO) 0.6 (0.2-0.8); MONOCYTES % 8.3 % (4.4-11.3); NEUTROPHILS # (AUTO) 4.4 (2.1-6.9); NEUTROPHILS % 65.2 % (38.7-80.0); PLATELET COUNT 118 x10e3/uL (140-360); RED BLOOD COUNT 2.41 x10e6/uL (3.6-5.1); RED CELL DISTRIBUTION WIDTH 19.9 % (11.7-14.4)
[2019-06-23 06:16] LABS: HEMATOCRIT 20.7 % (34.2-44.1); HEMOGLOBIN 6.9 g/dL (12.0-16.0)
[2019-06-23 06:31] LABS: ALBUMIN 2.5 g/dL (3.5-5.0); ALBUMIN/GLOBULIN RATIO 1.5 (0.8-2.0); ANION GAP 11.8 mmol/L (8-16); CALCIUM 7.9 mg/dL (8.4-10.2); CREATININE, SERUM 2.66 mg/dL (0.57-1.11); POTASSIUM 3.8 mmol/L (3.5-5.1)
--- NOTE | 2019-06-23 06:42 | NUR ---
Patient resting quitly at this time. Continue monitor.
--- NOTE | 2019-06-23 07:00 | NUR ---
BEDSIDE SHIFT REPORT FROM SKIP LOCATOR NURSE. PT DENIES NEEDS AT THIS TIME.
[2019-06-23] MEDS: ASPIRIN 81 MG CHEW TAB PO SCH ×3 (08:38→09:00)
[2019-06-23] MEDS: PANTOPRAZOLE 40 MG 10ML VIAL IV SCH (08:38)
[2019-06-23] MEDS: TICAGRELOR 90 MG TABLET PO SCH ×3 (08:40→19:39)
[2019-06-23] MEDS: AMLODIPINE BESYLATE 5 MG TAB PO SCH (08:41)
[2019-06-23] MEDS: CARVEDILOL 12.5 MG TAB PO SCH ×2 (08:41→17:26)
[2019-06-23] MEDS: ATORVASTATIN 20 MG TAB PO SCH (08:41)
[2019-06-23] MEDS: INSULIN LISPRO 100 UNIT/1 ML 3ML VIAL SQ SCH ×4 (08:47→19:55)
[2019-06-23] MEDS ORDERED: ONDANSETRON HCL INJ 2MG/ML 2ML 2 MG/ML VIAL IV PRN (11:15)
[2019-06-23] MEDS ORDERED: SODIUM CHLORIDE 0.9% 250ML 250 ML IV NR (15:15)
--- NOTE | 2019-06-23 15:47 | Progress Note ---
DATE: 06/23/2019 SUBJECTIVE: The patient has not had any bowel movement today. Tolerating solid food. Denies any abdominal pain. REVIEW OF SYSTEMS: GENERAL: Weakness. CVS: No chest pain or palpitation. RESPIRATORY: No cough or expectoration. MEDICATIONS: Reviewed as per [facility]. PHYSICAL EXAMINATION: VITAL SIGNS: Temperature 98.1, pulse 72, respirations 17, blood pressure 141/54, and oxygen saturation 100% on room air. GENERAL: Not in any acute distress. Oral mucosa is moist. HEENT: Anicteric sclerae. ABDOMEN: Soft, nondistended, nontender. No palpable mass or hernia. Positive bowel sounds. LABORATORY DATA: Hemoglobin has dropped down to 6.9 from 7.2. IMPRESSION: No more active lower gastrointestinal bleeding. The patient had diverticular bleeding which ceased spontaneously. She recently has had a PCI with drug-eluting stent placement. She is on dual antiplatelet therapy. When I reviewed MAR today, I see the patient is on aspirin only, not on Brilinta. Although, Cardiology is following the patient. Per Cardiology, the patient needs to be continued on dual antiplatelet therapy. PLAN: There is a slight drop in the hemoglobin, which I do not suspect from active GI bleeding. This could be due to fluid shift. Since hemoglobin has dropped down to less than 7, recommend to transfuse her 1 unit of blood, at the same time consider giving IV iron infusion. Continue diabetic/cardiac diet. From GI standpoint, the patient can be continued on dual antiplatelet therapy. Tate Dawn MD [facility] /[id number]
[2019-06-23] MEDS ORDERED: EPOETIN ALFA-EPBX 10,000 UNIT/ML VIAL SC NR (16:00)
[2019-06-23] MEDS ORDERED: TICAGRELOR 90 MG TABLET PO SCH (17:00)
--- NOTE | 2019-06-23 17:01 | Progress Note ---
DATE: Medicine Progress Note ADDENDUM: PHYSICAL EXAMINATION: GENERAL: In acute distress, alert and oriented x3. Cooperative on examination. HEENT: Head; normocephalic, atraumatic. Eyes; pupils are equal, round, and reactive to light bilaterally. Extraocular movements intact bilaterally. Throat; no evidence of erythema or exudates in the posterior pharynx. Has poor dentition. NECK: Supple. Good range of motion. PULMONARY: Clear to auscultation bilaterally. No wheezing, no rales, no rhonchi, no crackles appreciated. CARDIOVASCULAR: Positive S1 and S2. No murmurs, rubs, or gallops appreciated. ABDOMEN: Soft, nondistended, and nontender to palpation. Bowel sounds present. MUSCULOSKELETAL: Strength is 5/5 throughout. No evidence of any muscle deficits on examination. No weakness appreciated. NEUROLOGIC: Cranial nerves II through XII grossly intact. No evidence of any neurological deficits on exam. SKIN: Intact. Warm to touch. Good cap refill. PSYCHIATRIC: Normal affect and mood. EXTREMITIES: No edema. Good range of motion throughout. IMPRESSION: 1. Acute exacerbation of congestive heart failure with unknown dysfunction. 2. Vsg-GW-lftpxrpqo myocardial infarction with left heart catheterization with stents placed in June 2019. 3. Hypertension. 4. Probable community-acquired pneumonia. 5. Hyperlipidemia. 6. Chronic kidney disease, stage 3-4. 7. Black tarry stool with underlying anemia, status post blood transfusion. 8. Coag-negative Staphylococcus, skin contaminant. PLAN: At this time, her hemoglobin is 6.9. I did discuss this with GI who is recommending 1 unit packed RBCs, which she has ordered. I did order some Prilosec as well as Epogen to stimulate her hemoglobin count. She has been very stable in terms of her hemoglobin over the last 3 days. I have been telling the nurses not to hold the anti-platelet therapy and despite telling them they continue to hold it. There is no order to hold anti-platelet therapy. I discussed this today with the nursing staff to continue as the patient has been cleared to continue by GI and Cardiology. I reiterated that with them, apparently it was held this morning and then we are going to give her dose this afternoon. I did not state to them to hold any of her antiplatelet therapy, it has been dictated in my progress notes. The patient needs an outpatient capsule endoscopy at a later date. We will continue the same cardioprotective medications, monitoring hemoglobin very closely, and we will continue to follow. MD ADAN Astorga/DOLORES /[id number]
[2019-06-23] MEDS: SODIUM FERRIC GLUCONATE COMPLX 125 MG in SODIUM CHLORIDE 0.9% 100 ML 100 ML IV SCH (17:26)
[2019-06-23] MEDS: CEFTRIAXONE SOD 1 GM/NS 50 ML 50 ML IV SCH (17:26)
[2019-06-23] MEDS: AZITHROMYCIN 250 MG TAB PO SCH (17:27)
--- NOTE | 2019-06-23 18:32 | Progress Note ---
DATE: 06/23/2019 Cardiology Progress Note SUBJECTIVE: The patient denies chest pain or shortness of breath. OBJECTIVE: VITAL SIGNS: Temperature 97.9 degrees, pulse 71, respiratory rate 18, blood pressure 136/58, and oxygen saturation 100% on room air. GENERAL: Awake, alert, in no acute distress. LUNGS: Clear to auscultation bilaterally. No wheezes or crackles. CARDIOVASCULAR: Normal rate, regular rhythm. No murmur. Normal S1, S2. ABDOMEN: Soft, nontender. EXTREMITIES: No edema. CARDIAC MEDICATIONS: Carvedilol 25 mg p.o. b.i.d., aspirin 81 mg p.o. daily, atorvastatin 20 mg p.o. daily, amlodipine 10 mg p.o. daily, Brilinta 90 mg p.o. b.i.d. LABORATORY DATA: WBC 6.76, hemoglobin 6.9, hematocrit 20.7, and platelets 118. Sodium 143, potassium 3.8, chloride 108, CO2 of 27, BUN 43, creatinine 2.66. Telemetry was personally reviewed and interpreted, revealing normal sinus rhythm. IMPRESSION: 1. Acute gastrointestinal bleed. 2. Elevated troponin. 3. Coronary artery disease, status post recent PCI due to myocardial infarction. 4. Vripb-le-qtgvolg diastolic heart failure. 5. Uvhfo-kc-lmpkref kidney disease. RECOMMENDATIONS: Troponin is downtrending, likely secondary to recent myocardial infarction. No evidence of acute coronary syndrome at this time. Continue dual antiplatelet therapy given her very recent stent. Continue current cardiac medications. Monitor hemoglobin and hematocrit closely. Evaluation of bleeding per GI and primary. The patient's plan for outpatient capsule endoscopy. Thank you for this consult. We will continue. Shikha Whaley MD [facility] /[id number]
[2019-06-23] MEDS ORDERED: FUROSEMIDE INJ 10 MG/ML 2 ML VIAL IV ONE (20:00)
[2019-06-23] MEDS ORDERED: SODIUM CHLORIDE 0.9% 250ML 250 ML ONE (21:42)
[2019-06-24] VITALS (9 sets, daily range): BP systolic 118–137; BP diastolic 54–78
--- NOTE | 2019-06-24 01:00 | NUR ---
1 UNIT PRBC COMPLETE AT THIS TIME. PATIENT MONITORED APPROPRIATELY THROUGHOUT WITHOUT ANY COMPLICATIONS/REACTIONS. POST TRANSFUSION LASIX ADMINISTERED PER MD ORDER. PATIENT RESTING WITH EYES CLOSED, RR EVEN AND UNLABORED, EASILY AROUSABLE, DENIES NEEDS
[2019-06-24 02:43] LABS: CREATININE,URINE RANDOM 87.83 mg/dL (47-110); TOTAL PROTEIN, URINE 168.3 mg/dL (1-14)
[2019-06-24 06:12] LABS: BASOPHILS % 0.6 % (0.0-1.0); EOSINOPHILS # (AUTO) 0.9 (0.0-0.4); EOSINOPHILS % 13.6 % (0.0-6.0); HEMATOCRIT 23.2 % (34.2-44.1); HEMOGLOBIN 7.6 g/dL (12.0-16.0); LYMPHOCYTES # (AUTO) 0.8 (1.0-3.2); LYMPHOCYTES % 12.5 % (18.0-39.1); MEAN CORPUSCULAR HEMOGLOBIN 28.7 pg (28-32); MEAN CORPUSCULAR HGB CONC 32.8 g/dL (31-35); MEAN CORPUSCULAR VOLUME 87.5 fL (81-99); MONOCYTES # (AUTO) 0.6 (0.2-0.8); MONOCYTES % 8.7 % (4.4-11.3); NEUTROPHILS # (AUTO) 4.1 (2.1-6.9); NEUTROPHILS % 64.1 % (38.7-80.0); PLATELET COUNT 131 x10e3/uL (140-360); RED BLOOD COUNT 2.65 x10e6/uL (3.6-5.1); RED CELL DISTRIBUTION WIDTH 18.6 % (11.7-14.4)
[2019-06-24 06:41] LABS: ANION GAP 12.8 mmol/L (8-16); CALCIUM 7.5 mg/dL (8.4-10.2); CREATININE, SERUM 2.65 mg/dL (0.57-1.11); POTASSIUM 3.8 mmol/L (3.5-5.1)
--- NOTE | 2019-06-24 07:00 | NUR ---
BEDSIDE SHIFT REPORT FROM SEO EXECUTIVE NURSE. PT DENIES NEEDS AT THIS TIME.
[2019-06-24 07:13] LABS: CREATININE,URINE RANDOM 87.83 mg/dL (47-110)
[2019-06-24] MEDS: INSULIN LISPRO 100 UNIT/1 ML 3ML VIAL SQ SCH ×4 (07:30→20:44)
[2019-06-24] MEDS: TICAGRELOR 90 MG TABLET PO SCH ×2 (08:59→20:44)
[2019-06-24] MEDS: ASPIRIN 81 MG CHEW TAB PO SCH (08:59)
[2019-06-24] MEDS: CARVEDILOL 12.5 MG TAB PO SCH ×2 (08:59→17:45)
[2019-06-24] MEDS: ATORVASTATIN 20 MG TAB PO SCH (08:59)
[2019-06-24] MEDS: PANTOPRAZOLE 40 MG 10ML VIAL IV SCH (08:59)
[2019-06-24] MEDS: AMLODIPINE BESYLATE 5 MG TAB PO SCH (08:59)
[2019-06-24] MEDS: SODIUM FERRIC GLUCONATE COMPLX 125 MG in SODIUM CHLORIDE 0.9% 100 ML 100 ML IV SCH (09:00)
--- NOTE | 2019-06-24 11:14 | Progress Note ---
DATE: SUBJECTIVE: The patient required one additional unit of packed red blood cells yesterday. She has no visible GI bleeding at this time. PHYSICAL EXAMINATION: VITAL SIGNS: The blood pressure is 125/78 and the saturation is 99%. HEENT: Shows no facial swelling or erythema. CARDIAC: Reveals regular rate and rhythm with normal S1, S2. LUNGS: Auscultation of lungs shows clear breath sounds bilaterally. There is no wheezing. ABDOMEN: Soft, nontender. There is no rebound or guarding. EXTREMITIES: Shows no leg edema or calf tenderness. There is no cyanosis or clubbing. LABORATORY DATA: Hemoglobin is 7.6 and platelet count is 131. Creatinine is 2.65. IMPRESSION: 1. Anemia secondary to acute blood loss. 2. Lower gastrointestinal bleeding. 3. Recent myocardial infarction with stent placement. 4. Stage 5 chronic renal failure. PLAN: 1. Continue to monitor blood counts. 2. Continue to monitor renal function. 3. Continue dual anti-platelet therapy for recent cardiac stent. 4. Out of bed as tolerated. 5. Discussed disposition with Dr. Diaz and manager of case management. Miguel Flower MD [facility] /[id number]
--- NOTE | 2019-06-24 17:15 | Progress Note ---
DATE: 06/24/2019 Medicine Progress Note SUBJECTIVE: The patient does not have any black tarry stool. Of note, the nurse states the patient has regular stools, brown in color. Hemoglobin did maintain stable. She did receive of 1 unit packed RBC last night. PHYSICAL EXAMINATION: VITAL SIGNS: Temperature is 97.8, pulse 72, respiratory rate 16, blood pressure 132/57, pulse ox 98% on room air. GENERAL: In no acute distress, alert and oriented x3. Cooperative on examination. HEENT: Head; normocephalic, atraumatic. Eyes; pupils are equal, round, and reactive to light bilaterally. Extraocular movements intact bilaterally. Throat; no evidence of erythema or exudates in the posterior pharynx. Has poor dentition. NECK: Supple. Good range of motion. PULMONARY: Clear to auscultation bilaterally. No wheezing, no rales, no rhonchi, no crackles appreciated. CARDIOVASCULAR: Positive S1 and S2. No murmurs, rubs, or gallops appreciated. ABDOMEN: Soft, nondistended, and nontender to palpation. Bowel sounds present. MUSCULOSKELETAL: Strength is 5/5 throughout. No evidence of any muscle deficits on examination. No weakness appreciated. NEUROLOGIC: Cranial nerves 2 through 12 grossly intact. No evidence of any neurological deficits on exam. SKIN: Intact. Warm to touch. Good cap refill. PSYCHIATRIC: Normal affect and mood. EXTREMITIES: No edema. Good range of motion throughout. LABORATORY DATA: Show white count 6.3, hemoglobin better at 7.6, and her hemoglobin has been consistently stable in the last several days. Hematocrit 23, platelets of 131. Coagulation; PT 17, INR 1.3, PTT 31.9. Chemistry; sodium 140, potassium is 3.8 chloride 107, bicarbonate 24, anion gap of 12, BUN is 42, creatinine is 2.65, glucose is 117 calcium is 7.5. 24-hour urine protein collection was . MICROBIOLOGY: Nothing new. IMAGING STUDIES: None. IMPRESSION: 1. Acute exacerbation of congestive heart failure. 2. Arg-NZ-utvmzgvwa myocardial infarction with left heart catheterization with stents performed in June 2019. 3. Hypertension. 4. Probable community-acquired pneumonia. 5. Hyperlipidemia. 6. Chronic kidney disease, stage 3-4. 7. Black tarry stool with underlying anemia, status blood transfusion. 8. Coag-negative Staphylococcus, skin contaminant. PLAN: At this time hemoglobin much improved 7.6. She did receive 1 unit packed RBC yesterday from . She has been pretty consistently stable with her hemoglobin. We are going to continue with Ferrlecit. She has already received over the next several days. Continue with iron daily. Get a.m. labs. The patient is to continue with anti-platelet therapy, cardioprotective medications. Continue with same plan of care. Monitor closely. MD ADAN Astorga/[facility] /[id number]
[2019-06-24] MEDS: CEFTRIAXONE SOD 1 GM/NS 50 ML 50 ML IV SCH (17:45)
[2019-06-24] MEDS: AZITHROMYCIN 250 MG TAB PO SCH (17:45)
--- NOTE | 2019-06-24 18:10 | Progress Note ---
DATE: 06/24/2019 Cardiology Progress Note SUBJECTIVE: The patient denies chest pain or shortness of breath. OBJECTIVE: VITAL SIGNS: Temperature 97.8 degrees, pulse 72, respiratory rate 16, blood pressure 132/57, oxygen saturation 98% on room air. GENERAL: Awake, alert, in no acute distress. LUNGS: Clear to auscultation bilaterally. No wheezes or crackles. CARDIOVASCULAR: Normal rate, regular rhythm. No murmur. Normal S1, S2. ABDOMEN: Soft, nontender. EXTREMITIES: No edema. CARDIAC MEDICATIONS: Carvedilol 25 mg p.o. b.i.d., atorvastatin 20 mg p.o. daily, aspirin 81 mg p.o. daily, amlodipine 10 mg p.o. daily. LABORATORY DATA: WBC 6.32, hemoglobin 7.6, hematocrit 23.2, platelets 131. Sodium 140, potassium 3.8, chloride 107, CO2 24, BUN 42, creatinine 2.65. Telemetry was personally reviewed and interpreted, revealing normal sinus rhythm. IMPRESSION: 1. Acute gastrointestinal bleed. 2. Elevated troponin. 3. Coronary artery disease status post percutaneous coronary intervention due to myocardial infarction. 4. Acute on chronic diastolic heart failure. 5. Acute on chronic kidney disease. RECOMMENDATIONS: Troponin was downtrending likely secondary to recent myocardial infarction. No evidence of acute coronary syndrome at this time. Continue dual antiplatelet therapy given her very recent stent. Continue current cardiac medications. Monitor hemoglobin and hematocrit closely. Further evaluation of bleeding per GI and primary. Thank you for this consult. We will continue to follow. Shikha Whaley MD [facility] /[id number]
--- NOTE | 2019-06-24 19:10 | NUR ---
Bedside report and walking rounds completed with off going nurse. Patient in bed with call light within reach. No issues or concerns noted. Will continue to monitor.
[2019-06-25 00:28] VITALS: BP 93/47
[2019-06-25 04:30] VITALS: BP 114/40
[2019-06-25 05:30] LABS: BASOPHILS % 0.6 % (0.0-1.0); EOSINOPHILS # (AUTO) 0.8 (0.0-0.4); EOSINOPHILS % 13.2 % (0.0-6.0); HEMATOCRIT 23.1 % (34.2-44.1); HEMOGLOBIN 7.5 g/dL (12.0-16.0); LYMPHOCYTES # (AUTO) 0.8 (1.0-3.2); LYMPHOCYTES % 13.5 % (18.0-39.1); MEAN CORPUSCULAR HEMOGLOBIN 28.3 pg (28-32); MEAN CORPUSCULAR HGB CONC 32.5 g/dL (31-35); MEAN CORPUSCULAR VOLUME 87.2 fL (81-99); MONOCYTES # (AUTO) 0.5 (0.2-0.8); MONOCYTES % 7.7 % (4.4-11.3); NEUTROPHILS % 64.5 % (38.7-80.0); PLATELET COUNT 143 x10e3/uL (140-360); RED BLOOD COUNT 2.65 x10e6/uL (3.6-5.1)
[2019-06-25 05:53] LABS: ANION GAP 11.1 mmol/L (8-16); CALCIUM 7.8 mg/dL (8.4-10.2); CREATININE, SERUM 2.77 mg/dL (0.57-1.11); POTASSIUM 4.1 mmol/L (3.5-5.1)
--- NOTE | 2019-06-25 07:10 | NUR ---
Bedside report and walking rounds completed with oncoming nurse. Patient in bed with call light within reach. No issues or concerns noted. Will continue to monitor.
[2019-06-25] MEDS: INSULIN LISPRO 100 UNIT/1 ML 3ML VIAL SQ SCH (07:30)
[2019-06-25 08:00] VITALS: BP 121/54
[2019-06-25] MEDS: ATORVASTATIN 20 MG TAB PO SCH (08:50)
[2019-06-25] MEDS: PANTOPRAZOLE 40 MG 10ML VIAL IV SCH (08:50)
[2019-06-25] MEDS: AMLODIPINE BESYLATE 5 MG TAB PO SCH (08:50)
[2019-06-25] MEDS: TICAGRELOR 90 MG TABLET PO SCH (08:50)
[2019-06-25] MEDS: CARVEDILOL 12.5 MG TAB PO SCH (08:50)
[2019-06-25] MEDS: ASPIRIN 81 MG CHEW TAB PO SCH (08:50)
[2019-06-25 08:55] VITALS: BP 121/54
[2019-06-25 12:00] VITALS: BP 127/65
[2019-06-25] MEDS: SODIUM FERRIC GLUCONATE COMPLX 125 MG in SODIUM CHLORIDE 0.9% 100 ML 100 ML IV SCH (12:30)
--- NOTE | 2019-06-25 12:53 | Progress Note ---
DATE: 06/23/2019 Medicine Progress Note SUBJECTIVE: The patient is doing much better today with no complaints. The hemoglobin dropped to 6.9. Discussed this case with GI. Recommend 1 unit packed RBCs. PHYSICAL EXAMINATION: VITAL SIGNS: Temperature 98.1, pulse 72, respiratory rate 17, blood pressure 141/54, pulse ox 100% on room air. LABORATORY DATA: Show white count is 6.7, hemoglobin dropped to 6.9, but she has been stable since the , hematocrit 21, platelets of 118. Chemistries: Sodium 143, potassium 3.8, chloride 108, bicarb 24, anion gap of 11, BUN DICTATION ENDS HERE. MD ADAN Astorga/MADHAVL /[id number]
[2019-06-25] MEDS ORDERED: BRILINTA90 MG PO (13:16)
[2019-06-25] MEDS ORDERED: LASIX40 MG PO ×2 (14:40→14:44)
[2019-06-25] MEDS ORDERED: AUGMENTIN 875-1 EACH PO ×2 (14:40→14:44)
--- NOTE | 2019-06-25 16:12 | NUR ---
Patient discharged home.Prescription given, RT Subclavian central line MARRY contreras and pressure bandage applied as ordered by Dr Diaz, denies any pain, no distress noted, MARRY contreras lindsay and patient urinated, her daughter here to pick, transported via wheelchair to [facility]
--- NOTE | 2019-06-25 19:44 | Progress Note ---
DATE: 06/25/2019 Cardiology Progress Note SUBJECTIVE: The patient denies chest pain or shortness of breath. OBJECTIVE: VITAL SIGNS: Temperature 98.6 degrees, pulse 74, respiratory rate is 19, blood pressure 127/65, and oxygen saturation is 98% on 2 L nasal cannula. GENERAL: Elderly woman, in no acute distress. Awake and alert. LUNGS: Clear to auscultation bilaterally. No wheezes or crackles. CARDIOVASCULAR: Normal rate, regular rhythm. No murmur. Normal S1 and S2. ABDOMEN: Soft and nontender. EXTREMITIES: No edema. CARDIAC MEDICATIONS: Carvedilol 25 mg p.o. b.i.d., atorvastatin 20 mg p.o. daily, aspirin 81 mg p.o. daily, amlodipine 10 mg p.o. daily, and Brilinta 90 mg p.o. q.12 hours. IMAGING: Telemetry was personally reviewed and interpreted revealing normal sinus rhythm. IMPRESSION: 1. Acute gastrointestinal bleed. 2. Elevated troponin. 3. Coronary artery disease status post percutaneous coronary intervention. Due to recent myocardial infarction. 4. Dshwb-br-rhzhzom diastolic heart failure. 5. Fdnwt-kz-noqptpu kidney disease. RECOMMENDATIONS: Troponin was downtrending likely secondary to recent myocardial infarction. No evidence of acute coronary syndrome at this time. Continue dual antiplatelet therapy given her very recent stent. Continue current cardiac medications. Further evaluation of bleeding per GI. Thank you for this consult, we will continue to follow. Shikha Whaley MD ABS/MODL /[id number]
--- NOTE | 2019-06-26 01:14 | Discharge Summary ---
FINAL DISCHARGE DIAGNOSES: 1. Acute exacerbation of congestive heart failure. 2. Ghi-AJ-drvffwuqt myocardial infarction with recent left heart catheterization, with stents placed at [facility] in early June 2019. 3. Hypertension. 4. Probable community-acquired pneumonia. 5. Hyperlipidemia. 6. Chronic kidney disease, stage 3-4. 7. Black tarry stool underlying anemia, status post blood transfusion with stable hemoglobin on discharge. 8. Coag-negative Staphylococcus, skin contaminant. CONSULTANTS: 1. GI. 2. Nephrology. 3. Cardiology. 4. Pulmonary. PHYSICAL EXAMINATION: VITAL SIGNS: Temperature 98.6, pulse 74, respiratory rate is 19, blood pressure 120/76, pulse ox is 98% on room air. LABORATORY DATA: Labs show white count 6.2, hemoglobin at discharge 7.5, hematocrit is 23, platelets of 143. Sodium 140, potassium 4.14, chloride 103, bicarb 26, anion gap of 11, BUN is 38, creatinine 2.7, glucose is 101, calcium 7.8, iron saturation 18%,, ferritin was 124, total bilirubin was 0.4, AST is 18, ALT 10. Troponins were slightly elevated, albumin is 2.5. LDL 47. MICROBIOLOGY: Urine cultures, no growth. Blood culture 1/2 coag-negative staph to be contaminant. IMAGING STUDIES: Chest x-ray on admission 06/16/2019, bilateral pulmonary edema noted, concerning for underlying pneumonia as well. RBC tagged scan was found to be negative for any active bleeding. Renal ultrasound shows a right kidney 8.7 cm and left kidney 7.8 cm with mild right side hydronephrosis. Smoking was noted. HOSPITAL COURSE: An 84-year-old female, comes into the ED with complaints of orthopnea, dyspnea on exertion and was treated for underlying acute exacerbation of CHF. The patient recently had cardiac stents placed in June 2019 at [facility] due to underlying elevation of troponin. While here, Cardiology was consulted. She was on IV diuretics. She was also being treated for underlying community-acquired healthcare associated pneumonia, on antibiotics. Blood cultures 1 of two was found to be a contaminant with coag-negative Staphylococcus. The patient had no white count and is doing well with no issues. She was discharged on oral antibiotics. Her breathing status improved throughout the hospital course with IV diuretics. The patient also developed black tarry stool, prompting a direct transfer to the ICU. GI consultation Protonix drip. The patient had an EGD showed no evidence of any bleeding. Also had a colonoscopy, which also did not show any obvious findings of bleeding. The patient also underwent an RBC tagged scan, which was negative for any active bleeding. The patient required several units of packed RBCs blood transfusion. She was transferred at some point during the hospital stay to the ICU due to underlying hypotension and significant rectal bleeding. A central line was placed and she was initially started on pressors while in the ICU. The patient did undergo EGD, colonoscopy with results above. The patient continued to be on anti-platelet therapy due to recent cardiac stent placement, in which Cardiology was managing accordingly. While in the ICU, she did improve. The hemoglobin is stable and normal rectal bleeding was noted. The patient was eventually transferred to the medical floor. 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 I did discuss this case with GI, recommends no further workup as her hemoglobin has been stable over the last several days. She has received once again several units of packed RBCs. There is no evidence of any active bleeding prior to discharge despite being on anti-platelet therapy. Her stools were brown in color. No more evidence of any bleeding. Palliative care was consulted, but the patient was not interested in any palliative care services including no hospice. On discharge, the patient was doing extremely well. She was breathing. She was on room air. Her vital signs were stable. She has been cleared for discharge by Cardiology, Pulmonary, Nephrology and GI. On the day of discharge, vital signs were stable, labs reviewed and stable. The patient is seen and evaluated, and examined thoroughly on the day of discharge. No other complaints. The patient verbalized understanding and agrees to plan of care to follow up as an outpatient with the PCP in 1 week and GI, Cardiology, and Nephrology in 2 weeks' time. I have discussed plan of care with the patient as well as her daughter on several occasions, Bev, by phone and they verbalized understanding and agrees to plan of care. Currently, the patient is very stable with no evidence of any bleeding and has been cleared for discharge by all consultants. MEDICATIONS: See med reconciliation form. DISPOSITION: Home. CONDITION: Stable. DIET: Heart healthy. In the event of any worsening symptoms, the patient was advised to come back to the ED for further evaluation. Discharge summary took greater than 35 minutes. MD ADAN Astorga/DOLORES /[id number]
== END 2019-06-25 15:57 | disposition home or self-care (01) | DRG 291 ==
LOC: ER 16:07 → ERHOLD 17:54 → MED/SURG2 20:12 → ICU 06-18 15:31 → MED/SURG2 06-21 16:10
PROVIDERS: ADMIT Internal Medicine; ATTEND Internal Medicine
PROC: 02HV33Z Insertion of Infusion Device into Superior Vena Cava, Percutaneous Approach (ICD-10-PCS; principal; 2019-06-18)
PROC: B548ZZA Ultrasonography of Superior Vena Cava, Guidance (ICD-10-PCS; 2019-06-18)
PROC: 30233N1 Transfusion of Nonautologous Red Blood Cells into Peripheral Vein, Percutaneous Approach (ICD-10-PCS; 2019-06-18)
PROC: 3E043XZ Introduction of Vasopressor into Central Vein, Percutaneous Approach (ICD-10-PCS; 2019-06-18)
PROC: 0DB68ZX Excision of Stomach, Via Natural or Artificial Opening Endoscopic, Diagnostic (ICD-10-PCS; 2019-06-19)
PROC: 0DJD8ZZ Inspection of Lower Intestinal Tract, Via Natural or Artificial Opening Endoscopic (ICD-10-PCS; 2019-06-20)
DX: I13.0 Hypertensive heart and chronic kidney disease with heart failure and stage 1 through stage 4 chronic kidney disease, or unspecified chronic kidney disease (principal); I50.21 Acute systolic (congestive) heart failure; J15.9 Unspecified bacterial pneumonia; K57.33 Diverticulitis of large intestine without perforation or abscess with bleeding; R57.1 Hypovolemic shock; N17.9 Acute kidney failure, unspecified; N18.5 Chronic kidney disease, stage 5; N30.01 Acute cystitis with hematuria; D62 Acute posthemorrhagic anemia; K92.2 Gastrointestinal hemorrhage, unspecified; Z95.5 Presence of coronary angioplasty implant and graft; E11.22 Type 2 diabetes mellitus with diabetic chronic kidney disease; I25.10 Atherosclerotic heart disease of native coronary artery without angina pectoris; Z82.49 Family history of ischemic heart disease and other diseases of the circulatory system; E78.5 Hyperlipidemia, unspecified; Z83.3 Family history of diabetes mellitus; I25.2 Old myocardial infarction; E11.21 Type 2 diabetes mellitus with diabetic nephropathy; N18.3 Chronic kidney disease, stage 3 (moderate); K63.5 Polyp of colon; K64.1 Second degree hemorrhoids; K31.7 Polyp of stomach and duodenum; K22.2 Esophageal obstruction; K44.9 Diaphragmatic hernia without obstruction or gangrene
CPT/HCPCS: 36415; 36556; 43239; 45378; 71045; 74470; 76770; 76937; 78278; 80048; 80053; 80061; 81001; 81050; 82550; 82553; 82570; 82575; 82728; 82948; 83036; 83540; 83605; 83735; 83880; 84156; 84466; 84484; 85014; 85018; 85025; 85610; 85730; 86850; 86900; 86920; 87040; 87071; 87086; 87205; 88305; 88312; 93005; 93306; 96372; 97139; 99251; 99284; A9512; J0456; J0610; J0696; J1644; J1940; J2916; J3430; J7030; J7050; P9016

== ENCOUNTER 2019-07-05 05:32 | Emergency (ER) | payer MEDICARE ==
[~2019-07-05] VITALS: Ht 147.3 cm; Wt 78.5 kg
[~2019-07-05 05:32] MED LIST changes: +ASPIR 8181 MG PO; +AUGMENTIN 875-1 EACH PO; +BRILINTA90 MG PO; +FERROUS SULFAT325 MG PO; +LASIX40 MG PO; +PANTOPRAZOLE SO40 MG PO
--- NOTE | 2019-07-05 06:56 | Diagnostic Imaging Report ---
History: Fall on face Comparison studies:None Technique: Axial images were obtained to the vertex and maxillofacial region. Coronal and sagittal images reconstructed from the axial data. Intravenous contrast: None Dose modulation, iterative reconstruction, and/or weight based adjustment of the mA/kV was utilized to reduce the radiation dose to as low as reasonably achievable. Findings: Scalp/skull: No abnormalities. No fractures, blastic or lytic lesions. Extra-axial spaces: No masses. No fluid collections. Brain sulci: Mildly prominent. Ventricles: Mild compensatory dilatation. No hydrocephalus. Parenchyma: Subtle scattered hypodensities in the supratentorial white matter are small vessel ischemic changes. No masses, hemorrhage, acute or chronic cortical vascular insults. Sellar/suprasellar region: No abnormalities. Craniocervical junction: Patent foramen magnum. No Chiari one malformation. Incidental findings: Atherosclerotic calcifications in the carotid siphons and vertebral arteries. Maxillofacial CT: Soft tissues: Mild soft tissue swelling overlying the nasal bridge Bones: Mildly displaced bilateral nasal bone fractures. Mildly displaced anterior nasal septum fracture. Fluid at the nasal cavity. Orbits: Globes: No acute abnormality Extra or intraconal abnormalities: None. Paranasal sinuses: Mild mucosal thickening of maxillary and sphenoid sinuses Incidental findings: No dentition Impression: Head CT: 1. No acute intracranial abnormality 2. Mild chronic microvascular ischemic changes of the white matter and mild diffuse volume loss Maxillofacial CT: 1. Mildly displaced nasal bone and anterior nasal septum fractures with mild soft tissue swelling of the nasal bridge Signed by: DR Apolinar Polo M.D. on 07/05/2019 6:53 AM
== END 2019-07-05 09:09 | disposition home or self-care (01) ==
LOC: ER 05:32
DX: S02.2XXA Fracture of nasal bones, initial encounter for closed fracture (principal); W01.0XXA Fall on same level from slipping, tripping and stumbling without subsequent striking against object, initial encounter; Y93.01 Activity, walking, marching and hiking; Y92.008 Other place in unspecified non-institutional (private) residence as the place of occurrence of the external cause; I10 Essential (primary) hypertension; E11.9 Type 2 diabetes mellitus without complications; E78.5 Hyperlipidemia, unspecified; N18.9 Chronic kidney disease, unspecified; I25.10 Atherosclerotic heart disease of native coronary artery without angina pectoris; Z95.5 Presence of coronary angioplasty implant and graft
CPT/HCPCS: 70450; 70486; 99284